=== PATIENT | male | born 1940 | race Caucasian/White ===

== ENCOUNTER 2022-09-19 23:37 | Inpatient (IN) | payer OTHER, SELFPAY ==
--- NOTE | ~2022-09-19 | XR_ITS ---
EXAMINATION: XR chest 1V portable INDICATION: Weakness TECHNIQUE: Portable AP chest at 0048 hours COMPARISON: None available FINDINGS: The lungs are free of acute opacities. No pleural effusion or pneumothorax. The cardiomedia stinal silhouette is normal. IMPRESSION: 1. No acute cardiopulmonary abnormality. Reviewed, dictated and finalized at location F.
--- NOTE | ~2022-09-19 | NM_ITS ---
EXAMINATION: NM hepatobiliary w pharm DATE: 09/23/2022 15:45 INDICATION: Abnormal gallbladder on ultrasound COMPARISON: None. TECHNIQUE: 3.5 mCi Tc-99m mebrofenin (Choletec) was administered intravenously. Scintigraphic images of the abdomen were obtained for one hour. 1.2 mcg sincalide (Kinevac) was administered by slow intr avenous infusion, and imaging was continued for 30 minutes. Gallbladder ejection fraction was calcula jitendra by the technologist. FINDINGS: There is normal clearance of radiotracer from the blood pool. There is homogeneous tracer uptake by t he liver. Activity progresses to the gallbladder and bowel. The gallbladder ejection fraction (GBEF) is 95% (normal 10-90%, but most patient with gallbladder dysfunction have GBEF < 35% which does over lap with the normal range). IMPRESSION: 1. Biliary hyperkinesis with >90% gallbladder ejection fraction. Reviewed, dictated and finalized at location B.
--- NOTE | ~2022-09-19 | US_ITS ---
EXAMINATION: US carotid duplex BI DATE: 09/27/2022 14:26 INDICATION: Stroke. TECHNIQUE: Grayscale, color Doppler, and pulsed Doppler images of the cervical carotid arteries were obtained. The degree of vessel stenosis is placed in one of the following categories: normal, <50%, 5 0-69%, >=70% but less than near-occlusion, near-occlusion, or total occlusion. Note that percent sten osis relative to normal distal artery lumen diameter is indirectly measured from velocity measurement s as described by Cedric, et al. Radiology 2003; 229:340-346. Notes: Normal: Peak systolic velocity <125 centimeters/sec and no plaque <50%. Peak systolic velocity <125 ( EDV <40; ICA/CCA PSV ratio <2.0; used these factors only a tandem lesions or low cardiac output or co ntralateral disease) 50-69 %: PSV 125-230 (EDV 40-100; ratio 2-4) >= 70% but less than near occlusion: PSV greater than 230 (EDV > 100; ratio> 4.0) Near Occlusion: PSV that is variable; markedly narrowed lumen Occlusion: Absent flow on color/spectral Doppler and no lumen on stoner scale. COMPARISON: None. FINDINGS: RIGHT: The right common carotid artery (CCA) peak systolic velocity (PSV) is 66 cm/s. The right internal car otid artery (ICA) PSV is 104 cm/s. The right ICA end-diastolic velocity (EDV) is 27 cm/s. The right I CA/CCA PSV ratio is 1.6. The external carotid artery (ECA) PSV is 115 cm/s. There is antegrade flow i n the right vertebral artery. LEFT: The left CCA PSV is 54 cm/s. The left ICA PSV is 118 cm/s. The left ICA EDV is 23 cm/s. The left ICA/ CCA PSV ratio is 2.2. The ECA PSV is 282 cm/s. There is antegrade flow in the left vertebral artery. IMPRESSION: 1. Less than 50% stenosis in the right internal carotid artery by sonographic criteria. 2. Less than 50% stenosis in the left internal carotid artery by sonographic criteria. Reviewed, dictated and finalized at location A. IMPRESSION: 1. Less than 50% stenosis in the right internal carotid artery by sonographic gloria carrington. 2. Less than 50% stenosis in the left internal carotid artery by sonographic estephania olivier.
--- NOTE | ~2022-09-19 | US_ITS ---
US abdomen limited INDICATION: Right upper quadrant pain PROCEDURE: Realtime right upper abdominal ultrasound. COMPARISON: CT dated 09/20/2022 FINDINGS: The pancreas is normal without focal mass or pancreatic ductal dilation. Liver echotexture is normal without focal mass or intrahepatic biliary dilatation. There is normal directional flow i n the portal vein. Gallbladder wall appears mildly thickened with multiple echogenic foci along the gallbladder margin. No significant calcification the gallbladder is identified on prior CT examination. No gallstones are seen. No significant sludge. There is some comet tail artifact in a few of the echogenic areas sugge sting adenomyomatosis. Common bile duct measures 3.5 mm. No sonographic Benitez's sign. There are ri ght renal cysts, largest measuring 6 cm. IMPRESSION: 1: Mild gallbladder wall thickening with multiple echogenic foci along the gallbladder margin, possib ly adenomyomatosis. No definite gallstones are seen. Gallbladder wall thickening could indicate inter stitial edema, chronic liver disease or chronic cholecystitis. Reviewed, dictated and finalized at location B. IMPRESSION: 1: Mild gallbladder wall thickening with multiple echogenic foci along the gall bladder margin, possibly adenomyomatosis. No definite gallstones are seen. Gall bladder wall thickening could indicate interstitial edema, chronic liver diseas e or chronic cholecystitis.
--- NOTE | ~2022-09-19 | CT_ITS ---
EXAMINATION: CTA chest PE abdomen pel DATE: 09/20/2022 07:40 CDT INDICATION: Weakness and dizziness. TECHNIQUE: Computed tomography (CT) of the chest, abdomen, and pelvis was performed with 100 cc Omnip aque 350 intravenous contrast. The dose-length product was 394.89 mGy-cm. Automated exposure control and iterative reconstruction technique were employed. COMPARISON: CT dated 09/15/2014 FINDINGS: CHEST CT: Study is technically adequate without evidence for pulmonary embolism. No thoracic lymphadenopathy. T here is atherosclerosis of the aorta and coronary arteries. Small pericardial effusion. No endobronch ial lesions. No pneumothorax. There is right lower lobe atelectasis/scarring. There is demineralizati on of the bowel. Mild thoracic spondylosis. Moderate-severe lumbar spondylosis. ABDOMEN/PELVIS CT: There is pneumobilia and intraluminal gas in the gallbladder which be could be due to instrumentation . Correlate for symptoms of cholangitis/acute cholecystitis. There is thickening of the gastric antru m and pylorus. Cannot exclude underlying mass or peptic ulcer disease. Nonobstructive bowel gas patte rn. There is a nonenhancing 12 mm lesion in the right hepatic lobe, most likely benign. There are calcifi ed granulomas of the spleen. There are calcifications of the pancreas suggesting chronic pancreatitis . There are multiple bilateral renal cysts. There are nonobstructing bilateral renal stones. There is an aneurysm involving the distal abdominal aorta and left common iliac artery measuring 2.6 cm. Ther e is mild diffuse subcutaneous edema. No free air. IMPRESSION: 1. No evidence for pulmonary embolism. 2: Right lower lobe atelectasis/scarring. 3: Pneumobilia and intraluminal gas in the gallbladder which be could be due to instrumentation. Allison elate for symptoms of cholangitis/acute cholecystitis. 4: Abnormal thickening of the gastric antrum and pylorus. Cannot exclude underlying peptic ulcer dise ase or mass. Recommend GI consultation. 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 Reviewed, dictated and finalized at location B. IMPRESSION: 1. No evidence for pulmonary embolism. 2: Right lower lobe atelectasis/scarring. 3: Pneumobilia and intraluminal gas in the gallbladder which be could be due to instrumentation. Correlate for symptoms of cholangitis/acute cholecystitis. 4: Abnormal thickening of the gastric antrum and pylorus. Cannot exclude underl adan peptic ulcer disease or mass. Recommend GI consultation. 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
--- NOTE | ~2022-09-19 | XR_ITS ---
XR elbow RT min 3V DATE: 09/25/2022 15:08 INDICATION: New onset of right elbow pain, swelling. No injury. TECHNIQUE: 4 views COMPARISON: None FINDINGS: There is joint space narrowing and spurring consistent with prominent osteoarthritis of the elbow joint. There is some joint calcification. No fracture or dislocation or joint effusion, periosteal reaction or bone destruction is evident. IMPRESSION: Prominent osteoarthritis Reviewed, dictated and finalized at location A. IMPRESSION: Prominent osteoarthritis
--- NOTE | ~2022-09-19 | US_ITS ---
EXAMINATION:US venous doppler LE RT INDICATION:Elevated d-dimer. Right leg swelling. TECHNIQUE: Multiple grayscale, color flow and Doppler images of the right lower extremity deep venous systems were obtained and reviewed. COMPARISON:No prior studies for comparison. FINDINGS: The common femoral, superficial femoral and popliteal veins demonstrate normal respiratory variation, augmentation and compressibility. Color flow is also seen within the posterior tibial, pe roneal, greater saphenous and profunda veins. IMPRESSION: 1: No lower extremity deep venous thrombosis. Reviewed, dictated and finalized at location B.
--- NOTE | ~2022-09-19 | MR_ITS ---
EXAMINATION: MR brain/brain stem wo con DATE: 09/26/2022 13:42 INDICATION: Slurred speech. TECHNIQUE: Magnetic resonance imaging (MRI) of the brain and brainstem was performed without intraven ous contrast. COMPARISON: Brain MRI 06/09/2013 FINDINGS: There is an acute infarct in left caudate nucleus. There are old lacunar infarcts in the bi lateral basal ganglia. There is an old infarct in the posterior limb right internal capsule. There is no intracranial hemorrhage or abnormal mass lesion. There is old infarct in right cerebellum. There is an old infarct in left occipital lobe. There are scattered areas of nonspecific increased T2-weigh jitendra signal intensity in the cerebral white matter. There is a small old infarct in posterior left fro ntal lobe. The ventricles are normal in size. There are likely changes of ocular lens replacement dariela geries. The paranasal sinuses are clear. The mastoid air cells are normal. IMPRESSION: 1. Acute infarct in left caudate nucleus. 2. Old infarcts involving the bilateral basal ganglia, posterior limb right internal capsule, right c erebellum, left occipital lobe, and posterior left frontal lobe. 3. Moderate nonspecific cerebral white matter disease, which likely represents chronic small vessel i schemic disease. Reviewed, dictated and finalized at location A. IMPRESSION: 1. Acute infarct in left caudate nucleus. 2. Old infarcts involving the bilateral basal ganglia, posterior limb right int ernal capsule, right cerebellum, left occipital lobe, and posterior left fronta l lobe. 3. Moderate nonspecific cerebral white matter disease, which likely represents chronic small vessel ischemic disease.
[2022-09-20] VITALS (34 sets, daily range): BP systolic 114–153; BP diastolic 53–86; PULSE 55–85; RESP 10–23; TEMP 36.2–36.6; O2SAT 94–100; BMI 20.3
--- NOTE | 2022-09-20 00:33 | ECG_ITS ---
Measurements Intervals [place] Rate: 60 P: 74 NH: 135 QRS: 41 QRSD: 74 T: 73 QT: 366 QTc: 368 Interpretive Statements SINUS RHYTHM WITH OCCASIONAL SUPRAVENTRICULAR PREMATURE COMPLEXES NONSPECIFIC ST ABNORMALITY BORDERLINE ECG NO PREVIOUS ECG AVAILABLE FOR COMPARISON Electronically Signed On 09-20-2022 16:39:30 CDT by Jared Rodriguez M.D.
[2022-09-20] MEDS: ONDANSETRON INJ 4 MG/2 ML VIAL IV PUSH (00:41)
[2022-09-20] MEDS: SODIUM CHLORIDE 0.9% IV 1,000 ML 999 ML IV CONT ×2 (00:42→08:07)
[2022-09-20 00:53] LABS: Basophils Percent Auto 0.1 % (0.2-1.2); Hematocrit 25.3 % (42.0-52.0); Immature Granulocyte Absolute 0.05 K/mm3 (0.00-0.031); Immature Granulocyte Percent A 0.6 % (0-0.5); Lymphocytes Absolute Auto 0.34 K/mm3 (0.9-3.2); Lymphocytes Percent Auto 3.8 % (18.3-44.2); Mean Corpuscular HGB Conc 31.6 g/dl (32-36); Mean Corpuscular Hemoglobin 31.1 pg (26-34); Mean Corpuscular Volume 98.4 fl (80-100); Mean Platelet Volume 9.5 fl (7.4-10.4); Monocytes Absolute Auto 0.5 K/mm3 (0.1-0.6); Neutrophils Percent Auto 89.5 % (45.5-73.1); Platelet Count Result 147 k/mm3 (150-375); Red Blood Count 2.57 M/mm3 (4.6-6.20); Red Cell Distribution Width 14.2 % (11.5-14.5); White Blood Count 8.9 K/mm3 (4.5-10.0)
[2022-09-20 01:03] LABS: INR 1.2; Partial Thromboplastin Time 24.5 SECONDS (22.3-36.8); Prothrombin Time 14.3 Seconds (11.1-14.7)
[2022-09-20 01:08] LABS: Albumin Level 2.8 g/dL (3.5-5.1); Lipase 568 U/L (23-300); Magnesium 2.4 mg/dL (1.6-2.3); Sodium 138 mmol/L (137-145)
[2022-09-20 01:16] LABS: D Dimer 1.45 ug/mL (<0.48)
[2022-09-20 01:17] LABS: NT Pro B Type Natriuretic Pept 669 pg/mL (5-100)
[2022-09-20 01:23] LABS: Troponin I 0.039 ng/mL (0.000-0.034)
[2022-09-20 01:36] LABS: Lactic Acid Reflex 3.1 mmol/L (0.7-2.0)
[2022-09-20 02:36] LABS: Add Urine Microscopic? YES; Appearance Urine Clear (Clear); Bilirubin Urine Negative (Negative); Blood Urine Negative (Negative); Color Urine Yellow (Yellow); Glucose Urine UA Negative (Negative); Ketones Urine Negative (Negative); Leukocyte Esterase Ur Negative LEU/UL (Negative); Nitrate Urine Negative (Negative); Protein Urine Negative (Negative); RBC Urine 0-2 /hpf (0-2); Specific Grav Ur 1.027 (1.001-1.035); Urobilinogen Urine Negative mg/dL (<2.0); WBC Urine 0-3 /hpf
[2022-09-20 03:56] LABS: Procalcitonin 0.1 ng/mL
[2022-09-20 04:01] LABS: Alanine Aminotransferase 19 U/L (6-50); Alkaline Phosphatase 60 U/L (38-126); Anion Gap 7 mmol/L (8-16); Aspartate Amino Transferase 25 U/L (17-59); Bilirubin,Total 0.3 mg/dL (0.2-1.3); Blood Urea Nitrogen 57 mg/dL (9-20); Calcium 8.1 mg/dL (8.4-10.2); Carbon Dioxide 25 mmol/L (22-30); Chloride 106 mmol/L (98-107); Estimated CRCL calculation 35 ml/min; Estimated Glomerular Filt Rate 53; Glucose 156 mg/dL (65-110); Potassium 4.5 mmol/L (3.4-5.0)
[2022-09-20 04:21] LABS: Reflex Lactic Acid Yes or No Add Lactic
--- NOTE | 2022-09-20 04:23 | ED.GENADULT ---
HPI - General Adult General Chief complaint: Weakness Stated complaint: weakness Time Seen by Provider: 09/20/22 00:19 Related Data Allergies Allergy/AdvReac Type Severity Reaction Status Date / Time No Known Allergies Allergy Verified 09/20/22 00:36 [facility] Family History Family History (Updated 07/21/14 @ 07:13 by DOCTOR UNKNOWN) Sibling Family history of malignant neoplasm Mother Patient's mother is Social History Social History Smoking status: Current every day smoker Alcohol intake: current Course Vital Signs Vital signs: Vital Signs Pulse Rate 85 09/20/22 00:30 Respiratory Rate 16 09/20/22 00:30 Blood Pressure 153/75 H 09/20/22 00:30 Pulse Oximetry 100 09/20/22 00:30 Oxygen Delivery Room Air 09/20/22 00:30 Pulse Rate 85 09/20/22 00:30 Respiratory Rate 16 09/20/22 00:30 Blood Pressure 153/75 H 09/20/22 00:30 Pulse Oximetry 100 09/20/22 00:30 Oxygen Delivery Room Air 09/20/22 00:30 Medical Decision Making Vital Signs Vital Signs: Vital Signs Pulse Rate 85 09/20/22 00:30 Respiratory Rate 16 09/20/22 00:30 Blood Pressure 153/75 H 09/20/22 00:30 Pulse Oximetry 100 09/20/22 00:30 Oxygen Delivery Room Air 09/20/22 00:30 Pulse Rate 85 09/20/22 00:30 Respiratory Rate 16 09/20/22 00:30 Blood Pressure 153/75 H 09/20/22 00:30 Pulse Oximetry 100 09/20/22 00:30 Oxygen Delivery Room Air 09/20/22 00:30 Lab Data Result diagrams: 09/20/22 00:47 09/20/22 00:47 Labs: Lab Results 09/20/22 09/20/22 09/20/22 Range/Units 00:47 00:47 00:47 WBC (4.5-10.0) K/mm3 RBC (4.6-6.20) M/mm3 Hgb (14.0-18.0) g/dL Hct (42.0-52.0) % MCV (80-100) fl MCH (26-34) pg MCHC (32-36) g/dl RDW (11.5-14.5) % Plt Count (150-375) k/mm3 MPV (7.4-10.4) fl Immature Gran % (Auto) (0-0.5) % Neut % (Auto) (45.5-73.1) % Lymph % (Auto) (18.3-44.2) % [place] % (Auto) (2.6-8.5) % Eos % (Auto) (0-4.4) % Baso % (Auto) (0.2-1.2) % Lymph # (Auto) (0.9-3.2) K/mm3 [place] # (Auto) (0.1-0.6) K/mm3 Eos # (Auto) (0-0.3) K/mm3 Baso # (Auto) (0.0-0.1) K/mm3 Abs Immat Gran (auto) (0.00-0.031) K/mm3 Absolute Neuts (auto) (1.3-6.7) K/mm3 Absolute Nucleated RBC (0.0-0.012) K/mm3 Nucleated RBC % (0.0-0.2) % PT 14.3 (11.1-14.7) Seconds INR 1.2 APTT 24.5 (22.3-36.8) SECONDS D-Dimer 1.45 H (<0.48) ug/mL Sodium 138 (137-145) mmol/L Potassium 4.5 (3.4-5.0) mmol/L Chloride 106 (98-107) mmol/L Carbon Dioxide 25 (22-30) mmol/L Anion Gap 7 L (8-16) mmol/L BUN 57 H (9-20) mg/dL Creatinine 1.30 (0.7-1.3) mg/dL Estim Creat Clear Calc 35 ml/min Estimated GFR 53 L (59 - ) Glucose 156 H (65-110) mg/dL Lactic Acid (0.7-2.0) mmol/L Calcium 8.1 L (8.4-10.2) mg/dL Magnesium 2.4 H (1.6-2.3) mg/dL Total Bilirubin 0.3 (0.2-1.3) mg/dL AST 25 (17-59) U/L ALT 19 (6-50) U/L Alkaline Phosphatase 60 (38-126) U/L Troponin I 0.039 H* (0.000-0.034) ng/mL NT-Pro-B Natriuret Pep (5-100) pg/mL Total Protein 5.0 L (6.3-8.2) g/dL Albumin 2.8 L (3.5-5.1) g/dL Lipase 568 H (23-300) U/L Procalcitonin 0.1 ng/mL Urine Color (Yellow) Urine Appearance (Clear) Urine pH (5.0-9.0) Ur Specific [place] (1.001-1.035) Urine Protein (Negative) mg/dL Urine Glucose (UA) (Negative) mg/dL Urine Ketones (Negative) mg/dL Ur Blood (Man) (Negative) Urine Nitrate (Negative) Urine Bilirubin (Negative) Urine Urobilinogen (<2.0) mg/dL Leukocyte Esterase Rfl (Negative) ANGELICA/UL Urine RBC (0-2) /hpf Urine WBC /hpf 09/20/22 09/20/22 09/20/22 Range/Units 00:47 00:47 00:47 WBC 8.9 (4.5-10.0) K/mm3 RBC 2.57 L (4.6-6.20) M/mm3 Hgb 8.0 L (14
[2022-09-20 04:42] LABS: Troponin I 0.035 ng/mL (0.000-0.034)
[2022-09-20 05:05] LABS: Lactic Acid 1.5 mmol/L (0.7-2.0)
[2022-09-20 05:29] LABS: Influenza A QL RT-PCR Negative (Negative); Influenza B QL RT-PCR Negative (Negative); SARS-CoV-2 RNA PCR Negative
[2022-09-20] MEDS: SODIUM CHLORIDE 0.9% IV 1,000 ML 150 ML IV CONT ×2 (06:25→16:59)
--- NOTE | 2022-09-20 06:29 | PC.NURSE ---
attempted to call report nurse is not available
--- NOTE | 2022-09-20 07:58 | PM.IMHP ---
H&P: HPI History of Present Illness Date/Time: 09/20/22 07:58 Chief Complaint: weakness Narrative: 82 y/o M with PMH Crohn's colitis, bloody diarrhea/GI bleed, coming from home, lives with spouse, p/w generalized weakness for the last 2 days. He states he was in his usual state of health prior to this. He denies any chest pain, shortness a breath, nausea or emesis. He denies any sick contacts or recent travel. He denies fevers or chills. He states his appetite seems about the same. It does not feel like a Crohn's flare to him. Patient states he was in the hospital at [facility] about 2 weeks ago and discharged on prednisone 40 mg daily and given a month supply with refills, due to possible Crohn's flare suspected? Records from that stay are pending. PCP is Dr Mccartney, records pending from their office as well. In the ER, labs were unremarkable except for a hgb of 8 (unknown baseline), LA 3.1 (resolved with fluids, down to 1.5 now), elevated troponin of 0.035 (ECG non acute). Imaging showed a non acute CXR, LE dopplers negative for DVT, CTA chest/abd/pelvis with no PE, some RLL atelectasis vs scarring, GB abnormality (RUQ US ordered and showed GB wall thickening concerning for liver disease vs chronic cholecystitis, HIDA pending), thickening of gastric antrum and pylorus concerning for GERD vs mass and iliac artery aneurysms. Update: Records reviewed from PCP, [facility] includes CVA, HTN, HLD, Crohn's, nicotine dependence, B/L carotid stenosis, recent hospitalization at [facility] for possible GI bleed, patient unreliable historian. Records from recent hospitalization at [facility] is still pending. Review of Systems Review of Systems: 12 point review of systems was assessed and was negative except as noted in the HPI [facility] Past Medical History Medical History Benign essential hypertension Crohn's disease History of CVA with residual deficit Hyperlipidemia Iliac artery aneurysm Iron deficiency anemia Family History Family History Sibling Family history of malignant neoplasm Mother Patient's mother is Social History Social History Smoking packs per day: 1 Smoking cigarettes per day: 20.0 Smoking status: Former smoker Smoking end date: 09/20/22 Alcohol intake: former Drinks per week: 1 Substance use: never Has the Lack of Transportation Kept You From Medical Appointments or From Getting Medications?: No Within the Past 12 Months, Were You Worried Whether Your Food Would Run Out Before You Got Money to Buy More?: Never True What is Your Housing Situation Today?: I Have Housing Are You Worried That in the Next 2 Months, You May Not Have Your Own Housing to Live In?: No Do You Have Trouble Paying Your Heating Or Electricity Bill?: No Do You Have Trouble Paying For Medicines?: No Are You Currently Unemployed and Looking for Work?: No Highest Level of Education Completed: Associate Degree Do You Have Trouble With Childcare or the Care of a Family Member?: No Spiritual care concerns: No Meds Home Medications and Allergies Home Medications Medication Instructions Recorded Confirmed Type atorvastatin 40 mg tablet 40 mg PO DAILY 09/20/22 09/20/22 History balsalazide 750 mg capsule 750 mg PO TID 09/20/22 09/20/22 History ferrous sulfate 325 mg (65 mg 325 mg PO DAILY 09/20/22 09/20/22 History iron) tablet lisinopril 40 mg tablet 40 mg PO BID 09/20/22 09/20/22 History pantoprazole 40 mg tablet,delayed 40 mg PO DAILY 09/20/22 09/20/22 History release prednisone 20 mg tablet 40 mg PO DAILY 09/20/22 09/20/22 History Allergies Allergy/AdvReac Type Severity Reaction Status Date / Time No Known Allergies Allergy Verified 09/20/22 07:58 Vital Signs Vital Signs - 24 hr 09/20/22 00:30 09/20/22 00:32 09/20
[2022-09-20] MEDS: PANTOPRAZOLE SODIUM IV 40 MG VIAL IV PUSH (22:00)
[2022-09-21] VITALS (12 sets, daily range): BP systolic 120–180; BP diastolic 50–79; PULSE 60–76; RESP 14–20; TEMP 35.7–36.7; O2SAT 99–100
[2022-09-21] MEDS: SODIUM CHLORIDE 0.9% IV 1,000 ML 75 ML IV CONT ×3 (00:11→21:15)
[2022-09-21] MEDS: lisinopriL 20 MG TABLET 40 MG PO ×3 (00:46→21:16)
[2022-09-21 06:42] LABS: Basophils Percent Auto 0.2 % (0.2-1.2); Eosinophils Absolute Auto 0.1 K/mm3 (0-0.3); Eosinophils Percent Auto 1.9 % (0-4.4); Immature Granulocyte Absolute 0.04 K/mm3 (0.00-0.031); Immature Granulocyte Percent A 0.7 % (0-0.5); Lymphocytes Absolute Auto 1.06 K/mm3 (0.9-3.2); Lymphocytes Percent Auto 18.6 % (18.3-44.2); Mean Corpuscular HGB Conc 31.5 g/dl (32-36); Mean Corpuscular Hemoglobin 30.9 pg (26-34); Mean Platelet Volume 10.7 fl (7.4-10.4); Monocytes Absolute Auto 0.4 K/mm3 (0.1-0.6); Monocytes Percent Auto 7.7 % (2.6-8.5); Neutrophils Absolute Auto 4.1 K/mm3 (1.3-6.7); Neutrophils Percent Auto 70.9 % (45.5-73.1); Platelet Count Result 117 k/mm3 (150-375); Red Blood Count 2.04 M/mm3 (4.6-6.20); Red Cell Distribution Width 14.2 % (11.5-14.5); White Blood Count 5.7 K/mm3 (4.5-10.0)
[2022-09-21 07:01] LABS: Hemoglobin 6.3 g/dL (14.0-18.0)
[2022-09-21 07:02] LABS: Alanine Aminotransferase 13 U/L (6-50); Alkaline Phosphatase 39 U/L (38-126); Anion Gap -1 mmol/L (8-16); Aspartate Amino Transferase 19 U/L (17-59); Bilirubin,Total 0.3 mg/dL (0.2-1.3); Blood Urea Nitrogen 36 mg/dL (9-20); Calcium 7.5 mg/dL (8.4-10.2); Carbon Dioxide 24 mmol/L (22-30); Chloride 113 mmol/L (98-107); Estimated CRCL calculation 45 ml/min; Estimated Glomerular Filt Rate > 60; Glucose 68 mg/dL (65-110); Potassium 4.1 mmol/L (3.4-5.0); Sodium 136 mmol/L (137-145)
--- NOTE | 2022-09-21 07:37 | PM.IMPN ---
Progress Note: A&P Assessment and Plan (1) Crohn's disease: Code(s): K50.90 - Crohn's disease, unspecified, without complications Status: Chronic Assessment and Plan: GI consult pending, cont home meds (2) Benign essential hypertension: Code(s): I10 - Essential (primary) hypertension Status: Chronic Assessment and Plan: continue home meds (3) History of CVA with residual deficit: Code(s): I69.30 - Unspecified sequelae of cerebral infarction Status: Chronic Assessment and Plan: stable, cont statin, unsure why patient is not on aspirin and/or plavix? will need to get old records from PCP and [facility] 09/21: Records from PCP acquired, patient did have an old stroke as well as bilateral carotid stenosis and nicotine dependence, suspect aspirin and Plavix were started after the stroke? Records still pending from [facility] from his recent hospitalization for suspected GI bleed (4) Lactic acidosis: Code(s): E87.20 - Acidosis, unspecified Status: Resolved Assessment and Plan: resolved with IVF (5) Elevated troponin: Code(s): R77.8 - Other specified abnormalities of plasma proteins Status: Resolved Assessment and Plan: trend troponin, monitor telemetry, repeat ECG tomorrow (6) Iliac artery aneurysm: Code(s): I72.3 - Aneurysm of iliac artery Status: Chronic (7) Thickening of wall of gallbladder: Code(s): K82.8 - Other specified diseases of gallbladder Status: Suspected Assessment and Plan: HIDA scan pending, may need surgical consult (8) Hyperlipidemia: Code(s): E78.5 - Hyperlipidemia, unspecified Status: Chronic Assessment and Plan: cont statin (9) Iron deficiency anemia: Code(s): D50.9 - Iron deficiency anemia, unspecified Status: Chronic Assessment and Plan: hgb 8 at admission, appears HDS, unknown baseline, check FOBT, cont iron, GI consult pending (10) Gastric wall thickening: Code(s): K31.89 - Other diseases of stomach and duodenum Status: Acute Assessment and Plan: GI consult pending, suspect GI bleed, npo, PPI hgb dropped to below 7 today, recheck after transfusion pending could be underlying GERD? Plan DVT prophylaxis with SCDs GI prophylaxis with PPI Code status full code Subjective Date/time seen: 09/21/22 07:37 Interval history: No overnight events noted. No chest pain or shortness of breath. No nausea, vomiting or diarrhea. No fevers or chills. Patient very irritable and unhappy today. Review of Systems Review of Systems: 12 point review of systems was assessed and was negative except as noted in the HPI Exam Narrative: General: No acute distress, alert and oriented per baseline HEENT: Atraumatic, normocephalic, mucous membranes moist CV: Regular rate and rhythm, S1, S2 Lungs: Clear to auscultation bilaterally, no rales or crackles noted, no wheezes, good air entry Abdomen: Soft, nontender, nondistended Extremities: Normal to inspection Skin: No rashes noted, no lesions or wounds seen Psych: Dysthymic, flattened defect Objective Data Vital Signs Vital Signs: Vital Signs - 24 hr 09/20/22 08:00 09/20/22 14:12 09/20/22 14:00 Temperature 97.1 F L Pulse Rate 55 L Respiratory Rate 16 Blood Pressure 125/61 Pulse Oximetry 94 100 Oxygen Delivery Room Air Room Air 09/20/22 22:00 09/20/22 20:15 09/21/22 05:48 Temperature 97.8 F 97.8 F Pulse Rate 72 72 60 Respiratory Rate 16 16 16 Blood Pressure 129/53 L 120/50 L Pulse Oximetry 100 100 100 Oxygen Delivery Room Air Intake/Output Intake/Output: Intake & Output 09/18/22 09/19/22 09/20/22 09/21/22 23:59 23:59 23:59 23:59 Intake Total 3440 1000 Output Total 800 900 Balance 2640 100 Meds/Results Medications: Active Medications Generic Name Dose Route Start Last Admin Trade Name Freq PRN Reason
[2022-09-21 09:03] LABS: Hematocrit 21.3 % (42.0-52.0); Mean Corpuscular HGB Conc 31.5 g/dl (32-36); Mean Corpuscular Volume 98.6 fl (80-100); Mean Platelet Volume 10.4 fl (7.4-10.4); Platelet Count Result 128 k/mm3 (150-375); Red Blood Count 2.16 M/mm3 (4.6-6.20); Red Cell Distribution Width 14.1 % (11.5-14.5); White Blood Count 5.9 K/mm3 (4.5-10.0)
[2022-09-21] MEDS: ATORVASTATIN 40 MG TABLET PO (09:06)
[2022-09-21] MEDS: FERROUS SULFATE 324 MG TABLET PO (09:07)
[2022-09-21] MEDS: PANTOPRAZOLE SODIUM IV 40 MG VIAL IV PUSH ×2 (09:07→21:16)
[2022-09-21 09:24] LABS: Hemoglobin 6.7 g/dL (14.0-18.0)
[2022-09-21] MEDS: SODIUM CHLORIDE 0.9% IV 250 ML 30 ML IV CONT (12:00)
--- NOTE | 2022-09-21 15:59 | PHAR ---
The patient's home med of Balsalazide 750 mg capsule has been verified.
[2022-09-21 21:12] LABS: Hematocrit 33.1 % (42.0-52.0); Hemoglobin 10.8 g/dL (14.0-18.0)
[2022-09-22 06:00] VITALS: BP 166/81; PULSE 62; RESP 16; TEMP 36.9; O2SAT 98
[2022-09-22 06:08] LABS: Basophils Percent Auto 0.2 % (0.2-1.2); Eosinophils Absolute Auto 0.1 K/mm3 (0-0.3); Eosinophils Percent Auto 2.5 % (0-4.4); Hematocrit 30.1 % (42.0-52.0); Hemoglobin 9.9 g/dL (14.0-18.0); Immature Granulocyte Absolute 0.05 K/mm3 (0.00-0.031); Lymphocytes Absolute Auto 0.69 K/mm3 (0.9-3.2); Lymphocytes Percent Auto 14.3 % (18.3-44.2); Mean Corpuscular HGB Conc 32.9 g/dl (32-36); Mean Corpuscular Hemoglobin 30.2 pg (26-34); Mean Corpuscular Volume 91.8 fl (80-100); Mean Platelet Volume 9.7 fl (7.4-10.4); Monocytes Absolute Auto 0.3 K/mm3 (0.1-0.6); Monocytes Percent Auto 6.4 % (2.6-8.5); Neutrophils Absolute Auto 3.6 K/mm3 (1.3-6.7); Neutrophils Percent Auto 75.6 % (45.5-73.1); Platelet Count Result 113 k/mm3 (150-375); Red Blood Count 3.28 M/mm3 (4.6-6.20); Red Cell Distribution Width 15.4 % (11.5-14.5); White Blood Count 4.8 K/mm3 (4.5-10.0)
[2022-09-22 06:47] LABS: Alanine Aminotransferase 14 U/L (6-50); Albumin Level 2.2 g/dL (3.5-5.1); Alkaline Phosphatase 52 U/L (38-126); Anion Gap 6 mmol/L (8-16); Aspartate Amino Transferase 21 U/L (17-59); Bilirubin,Total 0.3 mg/dL (0.2-1.3); Blood Urea Nitrogen 24 mg/dL (9-20); Calcium 7.3 mg/dL (8.4-10.2); Carbon Dioxide 25 mmol/L (22-30); Chloride 107 mmol/L (98-107); Estimated CRCL calculation 41 ml/min; Estimated Glomerular Filt Rate > 60; Glucose 83 mg/dL (65-110); Potassium 3.7 mmol/L (3.4-5.0); Sodium 138 mmol/L (137-145)
[2022-09-22] MEDS: PANTOPRAZOLE SODIUM IV 40 MG VIAL IV PUSH ×2 (09:21→20:46)
[2022-09-22] MEDS: FERROUS SULFATE 324 MG TABLET PO (09:21)
[2022-09-22] MEDS: lisinopriL 20 MG TABLET 40 MG PO ×2 (09:21→20:46)
[2022-09-22] MEDS: ATORVASTATIN 40 MG TABLET PO (09:21)
--- NOTE | 2022-09-22 09:57 | WPDGICN ---
Assessment and Plan Assessment and plan (1) Gastric wall thickening: Code(s): K31.89 - Other diseases of stomach and duodenum Status: Acute Assessment and Plan: will proceed with egd tomorrow- assess if ulcer, pud, mass, etc (2) Acute on chronic anemia: Code(s): D64.9 - Anemia, unspecified Status: Acute Assessment and Plan: patient required blood transfusion apparently 3 weeks ago he went to another hospital for GIB but he is poor historian (3) Thickening of wall of gallbladder: Code(s): K82.8 - Other specified diseases of gallbladder Status: Suspected (4) Lactic acidosis: Code(s): E87.20 - Acidosis, unspecified Status: Resolved Assessment and Plan: resolved, probably from worsening anemia (5) Crohn's disease: Code(s): K50.90 - Crohn's disease, unspecified, without complications Status: Chronic Assessment and Plan: colonoscopy will get crp and esr no diarrhea now (6) Benign essential hypertension: Code(s): I10 - Essential (primary) hypertension Status: Chronic GI Consult Note Consult date/time: 09/22/22 09:57 Reason for consult: acute on chronic anemia, ? Crohn's HPI: Tal Heck is a 82 year old male with histoyr of Crohn's colitis diagnosed lat on balsalazide (never been on biologics), HTN and anemia. He says that was in [facility] about 3 weeks ago when he presented with bloody stools and apparently discharged with steroids (he is not best historian), he thinks that had egd and colonoscopy earlier this year. Here with generalized weakness for the last few days, denies more blood in stools, no abdominal pain, nausea or fever and he does not feel like having Crohn's flare. ER evaluation found hgb of 8 down to 6.3 and received blood transfusion, lactic 3.1 (resolved with fluids, down to 1.5 now), CTA chest/abd/pelvis reviewed with no PE, some RLL atelectasis vs scarring, GB abnormality (RUQ US ordered and showed GB wall thickening concerning for liver disease vs chronic cholecystitis), thickening of gastric antrum and pylorus. Review of Systems Constitutional: Constitutional: Reports fatigue and Reports weakness Eyes: Eyes: Reports no additional eye complaints ENT: Reports Normal hearing present Cardiovascular: Cardiovascular: Denies chest pain Respiratory: Respiratory: Denies chest congestion Gastrointestinal: Gastrointestinal: Reports no additional gastrointestinal complaints Genitourinary: Genitourinary: Denies hematuria Musculoskeletal: Musculoskeletal: Denies back pain Integumentary/Breasts: Skin/Breast: Denies rash Neurologic: Denies Abnormal speech present Psychiatric: Psychiatric: Denies behavioral changes [facility] Past Medical History Medical History (Updated 09/22/22 @ 10:03 by Scott Rios MD) Acute on chronic anemia Benign essential hypertension Crohn's disease History of CVA with residual deficit Hyperlipidemia Iliac artery aneurysm Iron deficiency anemia Family History Family History Sibling Family history of malignant neoplasm Mother Patient's mother is Social History Social History Smoking packs per day: 1 Smoking cigarettes per day: 20.0 Smoking status: Former smoker Smoking end date: 09/20/22 Alcohol intake: former Drinks per week: 1 Substance use: never Has the Lack of Transportation Kept You From Medical Appointments or From Getting Medications?: No Within the Past 12 Months, Were You Worried Whether Your Food Would Run Out Before You Got Money to Buy More?: Never True What is Your Housing Situation Today?: I Have Housing Are You Worried That in the Next 2 Months, You May Not Have Your Own Housing to Live In?: No Do You Have Trouble Paying Your Heating Or Electricity Bill?: No Do You Have T
--- NOTE | 2022-09-22 11:39 | PM.IMPN ---
Progress Note: A&P Assessment and Plan (1) Crohn's disease: Code(s): K50.90 - Crohn's disease, unspecified, without complications Status: Chronic Assessment and Plan: appreciate GI consultation, plan is for EGD tomorrow (2) Benign essential hypertension: Code(s): I10 - Essential (primary) hypertension Status: Chronic Assessment and Plan: continue home meds (3) History of CVA with residual deficit: Code(s): I69.30 - Unspecified sequelae of cerebral infarction Status: Chronic Assessment and Plan: stable, cont statin, unsure why patient is not on aspirin and/or plavix? 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.3 - Aneurysm of iliac artery Status: Chronic (7) Thickening of wall of gallbladder: Code(s): K82.8 - Other specified diseases of gallbladder Status: Suspected Assessment and Plan: HIDA scan pending, may need surgical consult (8) Hyperlipidemia: Code(s): E78.5 - Hyperlipidemia, unspecified Status: Chronic Assessment and Plan: cont statin (9) Iron deficiency anemia: Code(s): D50.9 - Iron deficiency anemia, unspecified Status: Chronic Assessment and Plan: hgb 8 at admission, appears HDS, unknown baseline, check FOBT, cont iron, GI consult pending hemoglobin stable between 9 and 10 after transfusion yesterday (10) Gastric wall thickening: Code(s): K31.89 - Other diseases of stomach and duodenum Status: Acute Assessment and Plan: GI consult appreciated, EGD tomorrow could be underlying GERD Plan DVT prophylaxis with SCDs GI prophylaxis with PPI Code status full code Subjective Date/time seen: 09/22/22 11:39 Interval history: No overnight events noted. No chest pain or shortness of breath. No nausea, vomiting or diarrhea. No fevers or chills. Review of Systems Review of Systems: 12 point review of systems was assessed and was negative except as noted in the HPI Exam Narrative: General: No acute distress, alert and oriented per baseline HEENT: Atraumatic, normocephalic, mucous membranes moist CV: Regular rate and rhythm, S1, S2 Lungs: Clear to auscultation bilaterally, no rales or crackles noted, no wheezes, good air entry Abdomen: Soft, nontender, nondistended Extremities: Normal to inspection Skin: No rashes noted, no lesions or wounds seen Psych: Dysthymic, flattened defect Objective Data Vital Signs Vital Signs: Vital Signs - 24 hr 09/21/22 12:00 09/21/22 12:15 09/21/22 13:15 Temperature 97.0 F L 97.5 F L 96.2 F L Pulse Rate 63 64 63 Respiratory Rate 18 16 20 Blood Pressure 132/56 L 133/54 L 148/63 H Pulse Oximetry 100 100 100 Oxygen Delivery 09/21/22 14:15 09/21/22 13:15 09/21/22 14:15 Temperature 97.2 F L 97.2 F L 97.3 F L Pulse Rate 63 63 66 Respiratory Rate 14 14 14 Blood Pressure 159/64 H 159/64 H 158/62 H Pulse Oximetry 100 100 100 Oxygen Delivery 09/21/22 15:15 09/21/22 16:04 09/21/22 16:20 Temperature 97.4 F L 97.3 F L 97.4 F L Pulse Rate 64 61 65 Respiratory Rate 16 14 16 Blood Pressure 151/62 H 151/62 H 135/58 L Pulse Oximetry 100 100 100 Oxygen Delivery 09/21/22 17:20 09/21/22 18:20 09/21/22 22:00 Temperature 97.3 F L 97.3 F L 98.1 F Pulse Rate 74 76 74 Respiratory Rate 16 16 16 Blood Pressure 160/78 H 164/74 H 180/79 H Pulse Oximetry 100 100 99 Oxygen Delivery 09/21/22 20:00 09/22/22 06:00 Temperature 98.4 F Pulse Rate 62 Respiratory Rate 16 Blood Pressure 166/81 H Pulse Oximetry 98 O
[2022-09-22 14:00] VITALS: BP 163/35; PULSE 71; RESP 18; TEMP 36.4; O2SAT 98
--- NOTE | 2022-09-22 20:03 | PC.NURSE ---
After pt family in, this RN informed that pt had previous colonoscopy and EGD with last six weeks and a barium enema. Informed Dr. Obrien who then decided to go forward with the EGD at this time. Pt will remain NPO at midnight, consent signed. Charted against the colonoscopy meds for this time. Request for records made to [facility] for results.
[2022-09-22] MEDS: SODIUM CHLORIDE 0.9% IV 1,000 ML 75 ML IV CONT (20:53)
[2022-09-22 22:00] VITALS: BP 178/76; PULSE 100; RESP 16; TEMP 36.5; O2SAT 100
[2022-09-23] VITALS (8 sets, daily range): BP systolic 140–181; BP diastolic 61–87; PULSE 62–80; RESP 14–24; TEMP 36.1–36.6; O2SAT 96–99
[2022-09-23] MEDS: hydrALAZINE HCL 25 MG TABLET PO (01:49)
[2022-09-23 06:53] LABS: Basophils Percent Auto 0.2 % (0.2-1.2); Eosinophils Absolute Auto 0.1 K/mm3 (0-0.3); Hematocrit 33.4 % (42.0-52.0); Immature Granulocyte Absolute 0.03 K/mm3 (0.00-0.031); Immature Granulocyte Percent A 0.7 % (0-0.5); Lymphocytes Percent Auto 13.1 % (18.3-44.2); Mean Corpuscular HGB Conc 32.9 g/dl (32-36); Mean Corpuscular Hemoglobin 30.6 pg (26-34); Mean Platelet Volume 9.6 fl (7.4-10.4); Monocytes Absolute Auto 0.4 K/mm3 (0.1-0.6); Monocytes Percent Auto 7.7 % (2.6-8.5); Neutrophils Absolute Auto 3.5 K/mm3 (1.3-6.7); Neutrophils Percent Auto 76.3 % (45.5-73.1); Platelet Count Result 126 k/mm3 (150-375); Red Blood Count 3.59 M/mm3 (4.6-6.20); Red Cell Distribution Width 15.2 % (11.5-14.5); White Blood Count 4.6 K/mm3 (4.5-10.0)
[2022-09-23 07:12] LABS: Alanine Aminotransferase 16 U/L (6-50); Albumin Level 2.4 g/dL (3.5-5.1); Alkaline Phosphatase 48 U/L (38-126); Anion Gap 5 mmol/L (8-16); Aspartate Amino Transferase 22 U/L (17-59); Bilirubin,Total 0.5 mg/dL (0.2-1.3); Blood Urea Nitrogen 15 mg/dL (9-20); CRP 4.7 mg/dL (<1.0); Calcium 7.6 mg/dL (8.4-10.2); Carbon Dioxide 21 mmol/L (22-30); Chloride 113 mmol/L (98-107); Estimated CRCL calculation 49 ml/min; Estimated Glomerular Filt Rate > 60; Glucose 79 mg/dL (65-110); Potassium 3.2 mmol/L (3.4-5.0); Sodium 139 mmol/L (137-145)
[2022-09-23 08:13] LABS: Erythrocyte Sedimentation Rate 34 mm/hr (0-20)
--- NOTE | 2022-09-23 09:37 | PCNFU ---
Nutrition Follow-Up Complete: Severe malnutrition in the context of chronic disease related to inadequate protein-energy intake with increased needs due to chronic disease as evidenced by less than 75% of energy needs for greater than 1 month, a -38% weight change x 12 months, and clinical signs of significant subcutaneous fat loss and muscle wasting. Goal: PO intake 75% or greater of meals and supplements - Met goal on previous diet Pt current nutrition is NPO for EGD today. Nutrition recommendation: Advance diet as medically able Last recorded weight is 62.6 kg. Bowel Motility: Labs Reviewed: Meds Noted: Skin: Additional Notes: Monitor intake, wt, labs. Follow up in 3 days. x
--- NOTE | 2022-09-23 09:41 | PCNFU ---
Nutrition Follow-Up Complete: Severe malnutrition in the context of chronic disease related to inadequate protein-energy intake with increased needs due to chronic disease as evidenced by less than 75% of energy needs for greater than 1 month, a -38% weight change x 12 months, and clinical signs of significant subcutaneous fat loss and muscle wasting. Goal: PO intake 75% or greater of meals and supplements - Goal being met on previous diet. Intakes 60-100 Pt current nutrition is NPO for EGD today. Nutrition recommendation: Advance diet as medically able Last recorded weight is 62.6 kg. Bowel Motility: None charted Labs Reviewed: Hgb 11.0, Hct 33.4, Alb 2.4, K+ 3.2 Meds Noted: Zofran Skin: WNL Additional Notes: NPO for EGD today. Continue to follow. Monitor intake, wt, labs. Follow up in 3 days. x
--- NOTE | 2022-09-23 09:54 | WPDANESEPPF ---
Anes - Initial Pre Proc Eval Procedure: Operation Date: 09/23/22 14:30 Proposed Procedures p Esophagogastroduodenoscopy EGD - Scott Rios MD Date/Time: 09/23/22 09:54 Surgeon: Jimbo Zhou MD Pre Op Diagnosis: Generalized Weakness/RLE Edema/Acute Kidney Injury Patient Data Age: 82 Gender: M Height: 1.75 m Weight: 62.6 kg Last Vital Signs Temp 36.3 C L 09/23/22 05:27 Pulse 76 09/23/22 05:27 Resp 18 09/23/22 05:27 BP 168/77 H 09/23/22 05:27 Pulse Ox 99 09/23/22 05:27 O2 Del Method Room Air 09/21/22 20:00 Allergies Allergy/AdvReac Type Severity Reaction Status Date / Time No Known Allergies Allergy Verified 09/23/22 09:54 Home Medications Medication Instructions Recorded Confirmed Type atorvastatin 40 mg tablet 40 mg PO DAILY 09/20/22 09/20/22 History balsalazide 750 mg capsule 750 mg PO TID 09/20/22 09/20/22 History ferrous sulfate 325 mg (65 mg 325 mg PO DAILY 09/20/22 09/20/22 History iron) tablet lisinopril 40 mg tablet 40 mg PO BID 09/20/22 09/20/22 History pantoprazole 40 mg tablet,delayed 40 mg PO DAILY 09/20/22 09/20/22 History release prednisone 20 mg tablet 40 mg PO DAILY 09/20/22 09/20/22 History Laboratory Tests 09/23/22 09/23/22 06:27 06:27 WBC 4.6 K/mm3 K/mm3 (4.5-10.0) RBC 3.59 M/mm3 L M/mm3 (4.6-6.20) Hgb 11.0 g/dL L g/dL (14.0-18.0) Hct 33.4 % L % (42.0-52.0) MCV 93.0 fl fl (80-100) MCH 30.6 pg pg (26-34) MCHC 32.9 g/dl g/dl (32-36) RDW 15.2 % H % (11.5-14.5) Plt Count 126 k/mm3 L k/mm3 (150-375) MPV 9.6 fl fl (7.4-10.4) Immature Gran % (Auto) 0.7 % H % (0-0.5) Neut % (Auto) 76.3 % H % (45.5-73.1) Lymph % (Auto) 13.1 % L % (18.3-44.2) [place] % (Auto) 7.7 % % (2.6-8.5) Eos % (Auto) 2.0 % % (0-4.4) Baso % (Auto) 0.2 % % (0.2-1.2) Lymph # (Auto) 0.60 K/mm3 L K/mm3 (0.9-3.2) [place] # (Auto) 0.4 K/mm3 K/mm3 (0.1-0.6) Eos # (Auto) 0.1 K/mm3 K/mm3 (0-0.3) Baso # (Auto) 0.0 K/mm3 K/mm3 (0.0-0.1) Abs Immat Gran (auto) 0.03 K/mm3 K/mm3 (0.00-0.031) Absolute Neuts (auto) 3.5 K/mm3 K/mm3 (1.3-6.7) Absolute Nucleated RBC 0.0 K/mm3 K/mm3 (0.0-0.012) Nucleated RBC % 0.0 % % (0.0-0.2) ESR 34 mm/hr H mm/hr (0-20) Sodium 139 mmol/L mmol/L (137-145) Potassium 3.2 mmol/L L mmol/L (3.4-5.0) Chloride 113 mmol/L H mmol/L (98-107) Carbon Dioxide 21 mmol/L L mmol/L (22-30) Anion Gap 5 mmol/L L mmol/L (8-16) BUN 15 mg/dL D mg/dL (9-20) Creatinine 0.90 mg/dL mg/dL (0.7-1.3) Estim Creat Clear Calc 49 ml/min ml/min Estimated GFR > 60 (59 - ) Glucose 79 mg/dL mg/dL (65-110) Calcium 7.6 mg/dL L mg/dL (8.4-10.2) Total Bilirubin 0.5 mg/dL mg/dL (0.2-1.3) AST 22 U/L U/L (17-59) ALT 16 U/L U/L (6-50) Alkaline Phosphatase 48 U/L U/L (38-126) C-Reactive Protein 4.7 mg/dL H mg/dL (<1.0) Total Protein 5.0 g/dL L g/dL (6.3-8.2) Albumin 2.4 g/dL L g/dL (3.5-5.1) Patient hx anesthesia problems: none Family hx anesthesia problems: none Results Review: All pre-operative results and documents have been reviewed as part of the pre-operative evaluation. FORMERLY [facility], [facility] Past Medical History Medical History Acute on chronic anemia Benign essential hypertension Crohn's disease History of CVA with residual deficit Hyperlipidemia Iliac artery aneurysm Iron deficiency anemia Family History Family History Sibling Family history of malignant neoplasm Mother Patient's mother is Social History Social History Smoking pac
[2022-09-23] MEDS: LACTATED RINGERS 1,000 ML 150 ML IV CONT (10:02)
--- NOTE | 2022-09-23 11:31 | PM.IMPN ---
Progress Note: A&P Assessment and Plan (1) Crohn's disease: Code(s): K50.90 - Crohn's disease, unspecified, without complications Status: Chronic Assessment and Plan: appreciate GI consultation, plan is for EGD Today (2) Benign essential hypertension: Code(s): I10 - Essential (primary) hypertension Status: Chronic Assessment and Plan: continue home meds (3) History of CVA with residual deficit: Code(s): I69.30 - Unspecified sequelae of cerebral infarction Status: Chronic Assessment and Plan: stable, cont statin, unsure why patient is not on aspirin and/or plavix? will need to get old records from PCP and [facility] (4) Lactic acidosis: Code(s): E87.20 - Acidosis, unspecified Status: Resolved Assessment and Plan: resolved with IVF (5) Elevated troponin: Code(s): R77.8 - Other specified abnormalities of plasma proteins Status: Resolved Assessment and Plan: likely from demand ischemia. No chest pain (6) Iliac artery aneurysm: Code(s): I72.3 - Aneurysm of iliac artery Status: Chronic (7) Thickening of wall of gallbladder: Code(s): K82.8 - Other specified diseases of gallbladder Status: Suspected Assessment and Plan: HIDA scan pending, may need surgical consult (8) Hyperlipidemia: Code(s): E78.5 - Hyperlipidemia, unspecified Status: Chronic Assessment and Plan: cont statin (9) Iron deficiency anemia: Code(s): D50.9 - Iron deficiency anemia, unspecified Status: Chronic Assessment and Plan: hgb 8 at admission, appears HDS, unknown baseline, check FOBT, cont iron, GI consulted hemoglobin stable between 9 and 10 after transfusion (10) Gastric wall thickening: Code(s): K31.89 - Other diseases of stomach and duodenum Status: Acute Assessment and Plan: GI consult appreciated, EGD today could be underlying GERD Plan DVT prophylaxis with SCDs GI prophylaxis with PPI Code status full code Subjective Date/time seen: 09/23/22 11:31 Interval history: No overnight events noted. No chest pain or shortness of breath. No nausea, vomiting or diarrhea. No fevers or chills. Exam Narrative: General: No acute distress, alert and oriented per baseline HEENT: Atraumatic, normocephalic, mucous membranes moist CV: Regular rate and rhythm, S1, S2 Lungs: Clear to auscultation bilaterally, no rales or crackles noted, no wheezes, good air entry Abdomen: Soft, nontender, nondistended Extremities: Normal to inspection Skin: No rashes noted, no lesions or wounds seen Psych: Dysthymic, flattened defect Objective Data Vital Signs Vital Signs: Vital Signs - 24 hr 09/22/22 14:00 09/22/22 22:00 09/23/22 05:27 Temperature 97.6 F 97.7 F 97.4 F L Pulse Rate 71 100 76 Respiratory Rate 18 16 18 Blood Pressure 163/35 H 178/76 H 168/77 H Pulse Oximetry 98 100 99 Oxygen Delivery 09/23/22 10:00 09/23/22 10:29 09/23/22 10:39 Temperature 97.7 F Pulse Rate 63 80 72 Respiratory Rate 18 24 H 18 Blood Pressure 181/76 H 141/79 H 159/87 H Pulse Oximetry 99 98 96 Oxygen Delivery Room Air Room Air Room Air 09/23/22 10:49 Temperature Pulse Rate 62 Respiratory Rate 18 Blood Pressure 160/86 H Pulse Oximetry 98 Oxygen Delivery Room Air Intake/Output Intake/Output: Intake & Output 09/20/22 09/21/22 09/22/22 09/23/22 23:59 23:59 23:59 23:59 Intake Total 3440 3480 1600 400 Output Total 800 1800 1200 700 Balance 2640 1680 400 -300 Meds/Results Medications: Active Medications Generic Name Dose Route Start Last Admin Trade Name Freq PRN Reason Stop Dose Admin Atorvastatin Calcium 40 mg 09/21/22 09:00 09/22/22 09:21 Atorvastatin 40 Mg Tablet PO 40 mg DAILY ARMAAN Administration Ferrous Sulfate 324 mg 09/21/22 09:00 09/22/22 09:21 Ferrous Sulfate 324 Mg Tablet PO 324 mg DAILY ARMAAN Administration
--- NOTE | 2022-09-23 13:37 | PCOTNOTE ---
Attempted to see pt. for occupational therapy evaluation. Per nursing, pt. is being taken down for testing is unavailable to be seen for evaluation at this time. Following.
--- NOTE | 2022-09-23 13:47 | PCPTNOTE ---
Attempted to see pt. for Physical therapy evaluation. Per nursing, pt. is being taken down for testing is unavailable to be seen for evaluation at this time. Following.
[2022-09-23] MEDS: lisinopriL 20 MG TABLET 40 MG PO ×2 (16:45→20:16)
[2022-09-23] MEDS: FERROUS SULFATE 324 MG TABLET PO (16:45)
[2022-09-23] MEDS: ATORVASTATIN 40 MG TABLET PO (16:45)
[2022-09-23] MEDS: POTASSIUM CHLORIDE 20 MEQ TABLET 40 MEQ PO (20:15)
[2022-09-23] MEDS: PANTOPRAZOLE SODIUM IV 40 MG VIAL IV PUSH (20:17)
[2022-09-24] MEDS: SODIUM CHLORIDE 0.9% IV 1,000 ML 75 ML IV CONT (05:35)
[2022-09-24 05:37] VITALS: BP 163/73; PULSE 65; RESP 16; TEMP 35.9; O2SAT 98
[2022-09-24 06:22] LABS: Eosinophils Absolute Auto 0.1 K/mm3 (0-0.3); Eosinophils Percent Auto 2.2 % (0-4.4); Hematocrit 31.3 % (42.0-52.0); Hemoglobin 10.2 g/dL (14.0-18.0); Immature Granulocyte Absolute 0.03 K/mm3 (0.00-0.031); Immature Granulocyte Percent A 0.7 % (0-0.5); Lymphocytes Absolute Auto 0.54 K/mm3 (0.9-3.2); Lymphocytes Percent Auto 13.5 % (18.3-44.2); Mean Corpuscular HGB Conc 32.6 g/dl (32-36); Mean Corpuscular Hemoglobin 30.2 pg (26-34); Mean Corpuscular Volume 92.6 fl (80-100); Mean Platelet Volume 9.6 fl (7.4-10.4); Monocytes Absolute Auto 0.4 K/mm3 (0.1-0.6); Monocytes Percent Auto 9.2 % (2.6-8.5); Neutrophils Percent Auto 74.4 % (45.5-73.1); Platelet Count Result 143 k/mm3 (150-375); Red Blood Count 3.38 M/mm3 (4.6-6.20); Red Cell Distribution Width 14.9 % (11.5-14.5)
[2022-09-24 06:37] LABS: Alanine Aminotransferase 16 U/L (6-50); Albumin Level 2.4 g/dL (3.5-5.1); Alkaline Phosphatase 55 U/L (38-126); Anion Gap 3 mmol/L (8-16); Aspartate Amino Transferase 22 U/L (17-59); Bilirubin,Total 0.5 mg/dL (0.2-1.3); Blood Urea Nitrogen 16 mg/dL (9-20); Calcium 7.5 mg/dL (8.4-10.2); Carbon Dioxide 23 mmol/L (22-30); Chloride 110 mmol/L (98-107); Estimated CRCL calculation 45 ml/min; Estimated Glomerular Filt Rate > 60; Glucose 86 mg/dL (65-110); Sodium 136 mmol/L (137-145)
[2022-09-24] MEDS: PANTOPRAZOLE SODIUM IV 40 MG VIAL IV PUSH ×2 (07:58→21:51)
--- NOTE | 2022-09-24 08:13 | PC.NURSE ---
Medications given and assessments charted from under [facility] were actually done by this RN, Aldo Gamez. This workstation had been previously logged in by this RN, but [facility] had taken computer. This RN neglected to change profiles back, forgetting [facility] had taken this workstation.
[2022-09-24] MEDS: ATORVASTATIN 40 MG TABLET PO (08:30)
[2022-09-24] MEDS: FERROUS SULFATE 324 MG TABLET PO (08:30)
[2022-09-24] MEDS: lisinopriL 20 MG TABLET 40 MG PO ×2 (08:30→21:51)
--- NOTE | 2022-09-24 13:40 | WPDGIPROGNO ---
Progress Note: A&P Assessment and Plan (1) Erosive gastritis: Code(s): K29.60 - Other gastritis without bleeding Status: Acute Assessment and Plan: continue with ppi twice daily report of dark stool but h/h stable pending path report from egd will follow from afar (2) Acute on chronic anemia: Code(s): D64.9 - Anemia, unspecified Status: Acute Assessment and Plan: h/h stable on ppi (3) Gastric wall thickening: Code(s): K31.89 - Other diseases of stomach and duodenum Status: Acute (4) Crohn's disease: Code(s): K50.90 - Crohn's disease, unspecified, without complications Status: Chronic Assessment and Plan: he is seeing GI at another hospital and had recent colonoscopy (5) History of CVA with residual deficit: Code(s): I69.30 - Unspecified sequelae of cerebral infarction Status: Chronic Subjective Date/time seen: 09/24/22 13:40 Interval history: no events, no abdominal pain. EGD yesterday with erosive gastritis without active bleeding. 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, h/o Crohn's Review of Systems Review of Systems: All systems reviewed & are unremarkable except as noted in HPI and below Exam Const: General: comfortable and no acute distress HENMT: Face/Nose/Sinus: Normal nares present Eyes: General: appearance normal, both eyes and all related structures Neck: Neck: no JVD Resp: Auscultation: clear to auscultation bilaterally Cardio: Rate: regular rate Rhythm: regular rhythm GI: Inspection: non-distended GI Palp: Yes Soft to palpation and No Tenderness to palpation present (GI) Auscultation: normal bowel sounds Skin: General skin exam: normal color Neuro: Speech: normal speech Motor exam (neuro): 5/5 motor strength present throughout Extrem: General: normal to inspection Psych: Mental Status: mental status grossly normal Objective Data Vital Signs Vital Signs: Vital Signs - 24 hr 09/23/22 14:00 09/23/22 22:00 09/23/22 20:00 Temperature 97.0 F L 98 F Pulse Rate 72 80 80 Respiratory Rate 14 16 16 Blood Pressure 175/87 H 140/61 Pulse Oximetry 99 98 98 Oxygen Delivery Room Air 09/24/22 05:37 09/24/22 10:31 Temperature 96.7 F L Pulse Rate 65 Respiratory Rate 16 Blood Pressure 163/73 H Pulse Oximetry 98 Oxygen Delivery Room Air Intake/Output Intake/Output: Intake & Output 09/21/22 09/22/22 09/23/22 09/24/22 23:59 23:59 23:59 23:59 Intake Total 3480 1600 1600 555 Output Total 1800 1200 700 650 Balance 1680 400 900 -95 Meds/Results Medications: Active Medications Generic Name Dose Route Start Last Admin Trade Name Freq PRN Reason Stop Dose Admin Atorvastatin Calcium 40 mg 09/21/22 09:00 09/24/22 08:30 Atorvastatin 40 Mg Tablet PO 40 mg DAILY ARMAAN Administration Ferrous Sulfate 324 mg 09/21/22 09:00 09/24/22 08:30 Ferrous Sulfate 324 Mg Tablet PO 324 mg DAILY ARMAAN Administration Home Med 3 each 09/23/22 09:00 09/24/22 12:49 Balsalazide 750 Mg Capsule Home Med PO 10/23/22 08:59 3 each TID ARMAAN Administration Hydralazine HCl 25 mg 09/23/22 01:03 09/23/22 01:49 Hydralazine Hcl 25 Mg Tablet PO 25 mg Q6H PRN Administration Hypertension Sodium Chloride 1,000 mls @ 75 mls/hr 09/20/22 04:30 09/24/22 05:35 Normal Saline Iv IV CONT 75 mls/hr .[id number] ARMAAN Administration Lisinopril 40 mg 09/20/22 23:55 09/24/22 08:30 Lisinopril 20 Mg Tablet PO 40 mg Q12HR ARMAAN Administration Ondansetron HCl 4 mg 09/20/22 04:28 Ondansetron Inj 4 Mg/2 Ml Vial IV PUSH Q4H PRN Nausea Pantoprazole Sodium 40 mg 09/20/22 21:00 09/24/22 07:58 Pantoprazole Sodium Iv 40 Mg Vial IV PUSH 40 mg Q12HR ARMAAN Administration Radiology Results: ITS Impressions Chest X-Ray 09/20/22 07:05 IMPRESSION: 1. No acute cardiopulmonary abnormality. Chest/Abdo
[2022-09-24 14:00] VITALS: BP 143/60; PULSE 67; RESP 16; TEMP 36.7; O2SAT 98
--- NOTE | 2022-09-24 14:16 | P.PNAN_ITS ---
Anes - Prog Note Post-Op Date/Time: 09/24/22 14:16 Cardiovascular status: normal Respiratory status: normal Airway patency: baseline Mental status: baseline Post-Op hydration status: normal Vital Signs: Last Vital Signs Temp 35.9 C L 09/24/22 05:37 Pulse 65 09/24/22 05:37 Resp 16 09/24/22 05:37 BP 163/73 H 09/24/22 05:37 Pulse Ox 98 09/24/22 05:37 O2 Del Method Room Air 09/24/22 10:31 Pain Score (VAS): 0 I/O: Intake & Output 09/23/22 09/24/22 09/24/22 23:59 07:59 15:59 Intake Total 200 75 480 Output Total 650 Balance 200 -575 480 Laboratory Tests 09/24/22 05:50 09/24/22 05:50 09/24/22 09/24/22 05:50 05:50 WBC 4.0 L RBC 3.38 L Hgb 10.2 L Hct 31.3 L MCV 92.6 MCH 30.2 MCHC 32.6 RDW 14.9 H Plt Count 143 L MPV 9.6 Immature Gran % (Auto) 0.7 H Neut % (Auto) 74.4 H Lymph % (Auto) 13.5 L [place] % (Auto) 9.2 H Eos % (Auto) 2.2 Baso % (Auto) 0.0 L Lymph # (Auto) 0.54 L [place] # (Auto) 0.4 Eos # (Auto) 0.1 Baso # (Auto) 0.0 Abs Immat Gran (auto) 0.03 Absolute Neuts (auto) 3.0 Absolute Nucleated RBC 0.0 Nucleated RBC % 0.0 Sodium 136 L Potassium 4.0 Chloride 110 H Carbon Dioxide 23 Anion Gap 3 L BUN 16 Creatinine 1.00 Estim Creat Clear Calc 45 Estimated GFR > 60 Glucose 86 Calcium 7.5 L Total Bilirubin 0.5 AST 22 ALT 16 Alkaline Phosphatase 55 Total Protein 5.0 L Albumin 2.4 L Post-procedural complaints: none Patient Feedback: Patient satisfied with anesthetic care.
--- NOTE | 2022-09-24 15:14 | PM.IMPN ---
Progress Note: A&P Assessment and Plan (1) Crohn's disease: Code(s): K50.90 - Crohn's disease, unspecified, without complications Status: Chronic Assessment and Plan: Pt having some rank red bleeding in the toilet sidhu. Pt under GI. pt had EGD yesterday with erosive gastritis without active bleeding. Pt had recent colonoscopy showing benign stricture in right colon, h/o Crohn's Continue to monitor in the hospital. On iv fluids watch hb (2) Benign essential hypertension: Code(s): I10 - Essential (primary) hypertension Status: Chronic Assessment and Plan: continue home meds (3) History of CVA with residual deficit: Code(s): I69.30 - Unspecified sequelae of cerebral infarction Status: Chronic Assessment and Plan: stable, cont statin, not on aspirin we have old records from PCP and [facility] (4) Lactic acidosis: Code(s): E87.20 - Acidosis, unspecified Status: Resolved Assessment and Plan: resolved with IVF (5) Elevated troponin: Code(s): R77.8 - Other specified abnormalities of plasma proteins Status: Resolved Assessment and Plan: likely from demand ischemia. 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 (8) Hyperlipidemia: Code(s): E78.5 - Hyperlipidemia, unspecified Status: Chronic Assessment and Plan: Cont statin (9) Iron deficiency anemia: Code(s): D50.9 - Iron deficiency anemia, unspecified Status: Chronic Assessment and Plan: Hgb 8 at admission, Hb is 10 now (10) Gastric wall thickening: Code(s): K31.89 - Other diseases of stomach and duodenum Status: Acute Assessment and Plan: GI consulted Plan DVT prophylaxis with SCDs GI prophylaxis with PPI Code status full code Subjective Date/time seen: 09/24/22 15:14 Interval history: Pt having some rank red bleeding in the toilet sidhu. Pt under GI. pt had EGD yesterday with erosive gastritis without active bleeding. Pt had recent colonoscopy showing benign stricture in right colon, h/o Crohn's Continue to monitor in the hospital. Pt had CT abdo, HIDA scan already seen by GI. Exam Narrative: General: Elderly man pleasant nature CV: Regular rate and rhythm, S1, S2 Lungs: Clear to auscultation bilaterally Abdomen: Soft, nontender, nondistended Extremities: Normal to inspection Skin: No rashes noted, no lesions or wounds seen Objective Data Vital Signs Vital Signs: Vital Signs - 24 hr 09/23/22 22:00 09/23/22 20:00 09/24/22 05:37 Temperature 36.6 C 35.9 C L Pulse Rate 80 80 65 Respiratory Rate 16 16 16 Blood Pressure 140/61 163/73 H Pulse Oximetry 98 98 98 Oxygen Delivery Room Air 09/24/22 10:31 Temperature Pulse Rate Respiratory Rate Blood Pressure Pulse Oximetry Oxygen Delivery Room Air Intake/Output Intake/Output: Intake & Output 09/21/22 09/22/22 09/23/22 09/24/22 23:59 23:59 23:59 23:59 Intake Total 3480 1600 1600 795 Output Total 1800 1200 700 650 Balance 1680 400 900 145 Meds/Results Medications: Active Medications Generic Name Dose Route Start Last Admin Trade Name Freq PRN Reason Stop Dose Admin Atorvastatin Calcium 40 mg 09/21/22 09:00 09/24/22 08:30 Atorvastatin 40 Mg Tablet PO 40 mg DAILY ARMAAN Administration Ferrous Sulfate 324 mg 09/21/22 09:00 09/24/22 08:30 Ferrous Sulfate 324 Mg Tablet PO 324 mg DAILY ARMAAN Administration Home Med 3 each 09/23/22 09:00 09/24/22 12:49 Balsalazide 750 Mg Capsule Home Med PO 10/23/22 08:59 3 each TID ARMAAN Administration Hydralazine HCl 25 mg
--- NOTE | 2022-09-24 15:26 | PCOTNOTE ---
Patient not seen for OT this date. Will continue plan of care.
[2022-09-24 20:00] VITALS: PULSE 81; RESP 18; O2SAT 98
[2022-09-24 22:00] VITALS: BP 160/61; PULSE 81; RESP 18; TEMP 36.5; O2SAT 98
[2022-09-25 06:00] VITALS: BP 140/54; PULSE 73; RESP 18; TEMP 36.5; O2SAT 100
[2022-09-25 07:38] LABS: Basophils Percent Auto 0.2 % (0.2-1.2); Eosinophils Absolute Auto 0.1 K/mm3 (0-0.3); Eosinophils Percent Auto 1.9 % (0-4.4); Hematocrit 29.3 % (42.0-52.0); Hemoglobin 9.7 g/dL (14.0-18.0); Immature Granulocyte Absolute 0.04 K/mm3 (0.00-0.031); Immature Granulocyte Percent A 0.9 % (0-0.5); Lymphocytes Absolute Auto 0.48 K/mm3 (0.9-3.2); Lymphocytes Percent Auto 10.3 % (18.3-44.2); Mean Corpuscular HGB Conc 33.1 g/dl (32-36); Mean Corpuscular Hemoglobin 30.7 pg (26-34); Mean Corpuscular Volume 92.7 fl (80-100); Mean Platelet Volume 9.4 fl (7.4-10.4); Monocytes Absolute Auto 0.6 K/mm3 (0.1-0.6); Neutrophils Absolute Auto 3.5 K/mm3 (1.3-6.7); Neutrophils Percent Auto 74.7 % (45.5-73.1); Platelet Count Result 131 k/mm3 (150-375); Red Blood Count 3.16 M/mm3 (4.6-6.20); Red Cell Distribution Width 14.9 % (11.5-14.5); White Blood Count 4.7 K/mm3 (4.5-10.0)
[2022-09-25 07:41] LABS: Alanine Aminotransferase 15 U/L (6-50); Albumin Level 2.3 g/dL (3.5-5.1); Alkaline Phosphatase 60 U/L (38-126); Anion Gap 3 mmol/L (8-16); Aspartate Amino Transferase 20 U/L (17-59); Bilirubin,Total 0.4 mg/dL (0.2-1.3); Blood Urea Nitrogen 17 mg/dL (9-20); Calcium 7.7 mg/dL (8.4-10.2); Carbon Dioxide 25 mmol/L (22-30); Chloride 109 mmol/L (98-107); Estimated CRCL calculation 45 ml/min; Estimated Glomerular Filt Rate > 60; Glucose 91 mg/dL (65-110); Potassium 3.9 mmol/L (3.4-5.0); Sodium 137 mmol/L (137-145)
--- NOTE | 2022-09-25 09:19 | PM.IMPN ---
Progress Note: A&P Assessment and Plan (1) Crohn's disease: Code(s): K50.90 - Crohn's disease, unspecified, without complications Status: Chronic Assessment and Plan: Pt having some rank red bleeding in the toilet sidhu. Pt under GI. pt had EGD yesterday with erosive gastritis without active bleeding. Pt had recent colonoscopy showing benign stricture in right colon, h/o Crohn's Continue to monitor in the hospital. On iv fluids watch hb (2) Benign essential hypertension: Code(s): I10 - Essential (primary) hypertension Status: Chronic Assessment and Plan: continue home meds (3) History of CVA with residual deficit: Code(s): I69.30 - Unspecified sequelae of cerebral infarction Status: Chronic Assessment and Plan: stable, cont statin, not on aspirin we have old records from PCP and [facility] Was on Plavix but stopped due to recent rectal bleed back in end of June (4) Lactic acidosis: Code(s): E87.20 - Acidosis, unspecified Status: Resolved Assessment and Plan: resolved with IVF (5) Elevated troponin: Code(s): R77.8 - Other specified abnormalities of plasma proteins Status: Resolved Assessment and Plan: likely from demand ischemia. 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 (8) Hyperlipidemia: Code(s): E78.5 - Hyperlipidemia, unspecified Status: Chronic Assessment and Plan: Cont statin (9) Iron deficiency anemia: Code(s): D50.9 - Iron deficiency anemia, unspecified Status: Chronic Assessment and Plan: Hgb 8 at admission, Hb is 10 now (10) Gastric wall thickening: Code(s): K31.89 - Other diseases of stomach and duodenum Status: Acute Assessment and Plan: GI consulted Findings of ischemic colitis in recent colonoscopy biopsy. Likely reason for his rectal bleed. He reported he was sent home on steroid but he is currently not on 1 Plan DVT prophylaxis with SCDs GI prophylaxis with PPI Code status full code Subjective Date/time seen: 09/25/22 09:19 Interval history: 82-year-old male with past medical history of Crohn's colitis presents with generalized weakness. Recently admitted at [facility]. Colonoscopy with benign stricture in right colon. EGD her with erosive gastritis without active bleeding. H&H was down to 6 needing transfusion here. Slowly drifting down. Mild thrombocytopenia. Elevated D-dimer. CMP normal mild troponin elevation on admission. Chest x-ray negative. CTA chest abdomen pelvis with no PE right lower lobe atelectasis/ scarring. Pneumobilia on intraluminal gas in the gallbladder which could be due to instrumentation. Correlate for cholangitis/acute cholecystitis. Abnormal thickening of the gastric antrum and pylorus. Distal aortic and proximal left common iliac artery aneurysms. Venous duplex negative for DVT. Abdomen ultrasound with mild gallbladder wall thickening multiple echogenic foci along the gallbladder margins possibly adenomyomatosis. Definite gallstones are seen. Gallbladder wall thickening could indicate interstitial edema chronic liver disease or chronic cholecystitis. HIDA scan with biliary hypokinesis with more than 90% gallbladder ejection fraction He reports that he has not had any rectal bleed since day before. He has not had any bowel movement at all. Denies any abdominal pain. Nausea vomiting. He is eating some not a whole lot. Denies any chest pain or shortness of breath. Review of Systems Review of Systems: All systems reviewed & are unremarkable except as noted in
[2022-09-25] MEDS: lisinopriL 20 MG TABLET 40 MG PO ×2 (10:05→21:15)
[2022-09-25] MEDS: FERROUS SULFATE 324 MG TABLET PO (10:05)
[2022-09-25] MEDS: PANTOPRAZOLE SODIUM IV 40 MG VIAL IV PUSH ×2 (10:06→21:14)
[2022-09-25] MEDS: ATORVASTATIN 40 MG TABLET PO (10:06)
[2022-09-25 10:49] LABS: Lactic Acid Reflex 1.1 mmol/L (0.7-2.0)
[2022-09-25 14:00] VITALS: BP 128/67; PULSE 75; RESP 14; TEMP 36.7; O2SAT 100
[2022-09-25 14:25] LABS: IFOB Positive Control Positive; Immunochemical Fecal Occult Bl Positive (N)
[2022-09-25 22:00] VITALS: BP 136/69; PULSE 84; RESP 20; TEMP 37.1; O2SAT 99
[2022-09-26 06:00] VITALS: BP 150/72; PULSE 85; RESP 18; TEMP 36.5; O2SAT 98
[2022-09-26 07:03] LABS: Basophils Percent Auto 0.3 % (0.2-1.2); Eosinophils Absolute Auto 0.1 K/mm3 (0-0.3); Eosinophils Percent Auto 2.4 % (0-4.4); Hematocrit 28.1 % (42.0-52.0); Hemoglobin 9.1 g/dL (14.0-18.0); Immature Granulocyte Absolute 0.02 K/mm3 (0.00-0.031); Immature Granulocyte Percent A 0.5 % (0-0.5); Lymphocytes Absolute Auto 0.64 K/mm3 (0.9-3.2); Lymphocytes Percent Auto 17.2 % (18.3-44.2); Mean Corpuscular HGB Conc 32.4 g/dl (32-36); Mean Corpuscular Hemoglobin 30.8 pg (26-34); Mean Corpuscular Volume 95.3 fl (80-100); Mean Platelet Volume 9.6 fl (7.4-10.4); Monocytes Absolute Auto 0.5 K/mm3 (0.1-0.6); Monocytes Percent Auto 12.9 % (2.6-8.5); Neutrophils Absolute Auto 2.5 K/mm3 (1.3-6.7); Neutrophils Percent Auto 66.7 % (45.5-73.1); Platelet Count Result 136 k/mm3 (150-375); Red Blood Count 2.95 M/mm3 (4.6-6.20); Red Cell Distribution Width 15.2 % (11.5-14.5); White Blood Count 3.7 K/mm3 (4.5-10.0)
[2022-09-26 07:11] LABS: Alanine Aminotransferase 13 U/L (6-50); Albumin Level 2.3 g/dL (3.5-5.1); Alkaline Phosphatase 54 U/L (38-126); Anion Gap 5 mmol/L (8-16); Aspartate Amino Transferase 18 U/L (17-59); Bilirubin,Total 0.3 mg/dL (0.2-1.3); Blood Urea Nitrogen 17 mg/dL (9-20); Calcium 7.6 mg/dL (8.4-10.2); Carbon Dioxide 25 mmol/L (22-30); Chloride 106 mmol/L (98-107); Estimated CRCL calculation 49 ml/min; Estimated Glomerular Filt Rate > 60; Glucose 80 mg/dL (65-110); Magnesium 1.9 mg/dL (1.6-2.3); Potassium 3.7 mmol/L (3.4-5.0); Sodium 136 mmol/L (137-145)
[2022-09-26] MEDS: FERROUS SULFATE 324 MG TABLET PO (09:51)
[2022-09-26] MEDS: lisinopriL 20 MG TABLET 40 MG PO ×2 (09:51→20:48)
[2022-09-26] MEDS: ATORVASTATIN 40 MG TABLET PO (09:52)
[2022-09-26] MEDS: PANTOPRAZOLE SODIUM IV 40 MG VIAL IV PUSH ×2 (09:52→20:48)
--- NOTE | 2022-09-26 13:07 | PCDIET ---
New screen for stage 2 scarum pressure wound. Add juan BID provides 80kcal and 2.5g protein per serving packet. Will readjust protein needs on follow up.
--- NOTE | 2022-09-26 13:15 | PCNSR ---
On 09/26/22, the student, Randy Pena, provided care and completed [employer] documentation on this patient. I have reviewed the student's documentation and agree with the findings.
--- NOTE | 2022-09-26 13:41 | PM.IMPN ---
Progress Note: A&P Assessment and Plan (1) Crohn's disease: Code(s): K50.90 - Crohn's disease, unspecified, without complications Status: Chronic Assessment and Plan: Pt having some rank red bleeding in the toilet sidhu. Pt under GI. pt had EGD yesterday with erosive gastritis without active bleeding. Pt had recent colonoscopy showing benign stricture in right colon, h/o Crohn's Continue to monitor in the hospital. On iv fluids watch hb (2) Benign essential hypertension: Code(s): I10 - Essential (primary) hypertension Status: Chronic Assessment and Plan: continue home meds (3) History of CVA with residual deficit: Code(s): I69.30 - Unspecified sequelae of cerebral infarction Status: Chronic Assessment and Plan: stable, cont statin, not on aspirin we have old records from PCP and [facility] Was on Plavix but stopped due to recent rectal bleed back in end of June Will order MRI to further evaluate if shows any new stroke we might need to start him on some antiplatelet. (4) Lactic acidosis: Code(s): E87.20 - Acidosis, unspecified Status: Resolved Assessment and Plan: resolved with IVF (5) Elevated troponin: Code(s): R77.8 - Other specified abnormalities of plasma proteins Status: Resolved Assessment and Plan: likely from demand ischemia. 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 (8) Hyperlipidemia: Code(s): E78.5 - Hyperlipidemia, unspecified Status: Chronic Assessment and Plan: Cont statin (9) Iron deficiency anemia: Code(s): D50.9 - Iron deficiency anemia, unspecified Status: Chronic Assessment and Plan: Hgb 8 at admission, Hb is 10 now Hemoglobin continues to decline no active signs of bleeding (10) Gastric wall thickening: Code(s): K31.89 - Other diseases of stomach and duodenum Status: Acute Assessment and Plan: GI consulted Findings of ischemic colitis in recent colonoscopy biopsy. Likely reason for his rectal bleed. He reported he was sent home on steroid but he is currently not on 1 Stomach biopsy positive for H pylori and chronic active gastritis (11) H. pylori infection: Code(s): A04.8 - Other specified bacterial intestinal infections Status: Acute Assessment and Plan: start H pylori based treatment Plan DVT prophylaxis with SCDs GI prophylaxis with PPI Code status full code Subjective Date/time seen: 09/26/22 13:41 Interval history: 82-year-old male with past medical history of Crohn's colitis presents with generalized weakness. Recently admitted at [facility]. Colonoscopy with benign stricture in right colon. EGD her with erosive gastritis without active bleeding. H&H was down to 6 needing transfusion here. Slowly drifting down. Mild thrombocytopenia. Elevated D-dimer. CMP normal mild troponin elevation on admission. Chest x-ray negative. CTA chest abdomen pelvis with no PE right lower lobe atelectasis/ scarring. Pneumobilia on intraluminal gas in the gallbladder which could be due to instrumentation. Correlate for cholangitis/acute cholecystitis. Abnormal thickening of the gastric antrum and pylorus. Distal aortic and proximal left common iliac artery aneurysms. Venous duplex negative for DVT. Abdomen ultrasound with mild gallbladder wall thickening multiple echogenic foci along the gallbladder margins possibly adenomyomatosis. Definite gallstones are seen. Gallbladder wall thickening could indicate interstitial edema chronic liver disease or chronic cholecystitis.
[2022-09-26 14:00] VITALS: BP 144/76; PULSE 72; RESP 18; TEMP 36.5; O2SAT 100
--- NOTE | 2022-09-26 15:15 | WPDNEURCNPN ---
Consult date: 09/26/22 Reason for consult: stroke HPI: Tal Heck is a 82 year old male admitted to the hospital through the emergency room on September 20, 2022 with complaints of weakness in addition to the ongoing history of 1. Crohn's disease 2. Diarrhea with bleed, neurology consultation has been obtained now for the complaints of cerebrovascular accident. Up until now patient has undergone endoscopic exam with documentation of erosive gastritis without active bleeding, benign structure in the right colon, essential hypertension, patient does have ongoing history of I iliac artery aneurysm2, iron deficiency anemia. On September 26, 2022, patient was noted to have slurred speech, MRI of the brain on September 26, 2022 at 1342 revealed acute infarct in left caudate nucleus in addition to old infarcts involving the bilateral basal ganglia, posterior limb of the right internal capsule, right cerebellum, left occipital lobe, posterior left frontal lobe as well. Patient is receiving atorvastatin 40 mg daily, lisinopril 40 mg q.12 hours, aspirin 81 mg daily, and 324 mg once has been given. Sed rate is 34 and patient does have proximal left common and I like artery aneurysm on CTA of the chest and abdomen documented on September 20, 2022 Review of Systems Review of Systems: All systems reviewed & are unremarkable except as noted in HPI and below [facility] Past Medical History Medical History (Updated 09/26/22 @ 13:46 by Peterson Sinha MD) Acute on chronic anemia Benign essential hypertension Crohn's disease Erosive gastritis History of CVA with residual deficit Hyperlipidemia Iliac artery aneurysm Iron deficiency anemia Family History Family History Sibling Family history of malignant neoplasm Mother Patient's mother is Social History Social History Smoking packs per day: 1 Smoking cigarettes per day: 20.0 Smoking status: Former smoker Smoking end date: 09/20/22 Alcohol intake: former Drinks per week: 1 Substance use: never Has the Lack of Transportation Kept You From Medical Appointments or From Getting Medications?: No Within the Past 12 Months, Were You Worried Whether Your Food Would Run Out Before You Got Money to Buy More?: Never True What is Your Housing Situation Today?: I Have Housing Are You Worried That in the Next 2 Months, You May Not Have Your Own Housing to Live In?: No Do You Have Trouble Paying Your Heating Or Electricity Bill?: No Do You Have Trouble Paying For Medicines?: No Are You Currently Unemployed and Looking for Work?: No Highest Level of Education Completed: Associate Degree Do You Have Trouble With Childcare or the Care of a Family Member?: No Spiritual care concerns: No Meds Home Medications and Allergies Home Medications Medication Instructions Recorded Confirmed Type atorvastatin 40 mg tablet 40 mg PO DAILY 09/20/22 09/20/22 History balsalazide 750 mg capsule 750 mg PO TID 09/20/22 09/20/22 History ferrous sulfate 325 mg (65 mg 325 mg PO DAILY 09/20/22 09/20/22 History iron) tablet lisinopril 40 mg tablet 40 mg PO BID 09/20/22 09/20/22 History pantoprazole 40 mg tablet,delayed 40 mg PO DAILY 09/20/22 09/20/22 History release prednisone 20 mg tablet 40 mg PO DAILY 09/20/22 09/20/22 History Allergies Allergy/AdvReac Type Severity Reaction Status Date / Time No Known Allergies Allergy Verified 09/23/22 09:54 Vital Signs Vital Signs - 24 hr 09/25/22 22:00 09/26/22 06:00 09/26/22 12:07 Temperature 37.1 C 36.5 C Pulse Rate 84 85 Respiratory Rate 20 18 Blood Pressure 136/69 150/72 H Pulse Oximetry 99 98 Oxygen Delivery Room Air 09/26/22 14:00 Temperature 36.5 C Pulse Rate 72 Respiratory Rate 18 Blood Pressure 144/76 H Pulse Oximetry 100 Oxygen Delivery Results Labs CBC & Chem 7: 09/26
[2022-09-26] MEDS: ASPIRIN 81 MG CHEWABLE TABLET 324 MG PO (17:01)
[2022-09-26] MEDS: CLARITHROMYCIN 500 MG TABLET PO (20:48)
[2022-09-26] MEDS: AMOXICILLIN 500 MG CAPSULE 1000 MG PO (20:48)
[2022-09-26 22:00] VITALS: BP 140/54; PULSE 84; RESP 18; TEMP 37.3; O2SAT 98
--- NOTE | 2022-09-27 | ECHO_ITS ---
Patient Info Name: Tal Heck Age: 82 years : 1940 Gender: Male Ht: 69 in Wt: 138 lbs BSA: 1.74 m2 HR: 81 bpm Technical Quality: Fair Exam Date: 09/27/2022 4:18 PM Exam Location: [facility] Pulmonary Exam Room: [facility] Patient Status: Inpatient Admit Date: 09/21/2022 Staff Ordering Physician: Peterson Sinha MD Recovery Manager: Ene Rehman RDCS Attending Provider: Peterson Sinha MD Exam Type: CA echo doppler color flow Study Info Indications - stroke Complete two-dimensional, color flow and Doppler transthoracic echocardiogram is performed. Summary 1. Complete two-dimensional, color flow and Doppler transthoracic echocardiogram is performed. 2. Left ventricular chamber dimension is normal. 3. Left ventricular systolic function is normal, estimated at 65-70%. 4. The left ventricular diastolic function is grade I diastolic dysfunction. 5. E/e' 11 is mildly elevated. 6. Left atrial chamber dimension is mildly enlarged. 7. There is mild aortic valve sclerosis. 8. The mitral valve has mildly calcified annulus. 9. No pulmonary hypertension, estimated pulmonary arterial systolic pressure is 32 mmHg. 10. There is small to moderate right sided pericardial effusion. Echogenic material adherent to right ventricular free wall within pericardial space suggestive of chronicity of pericardial effusion. Left Ventricle E/e' 11 is mildly elevated. Left ventricular chamber dimension is normal. Left ventricular systolic function is normal, estimated at 65-70%. The left ventricular diastolic function is grade I diastolic dysfunction. Right Ventricle Right ventricular chamber dimension is normal. Right ventricular systolic function is normal. Left Atria Left atrial chamber dimension is mildly enlarged. Right Atria Right atrial chamber dimension is normal. Aortic Valve The aortic valve is trileaflet. There is mild aortic valve sclerosis. There is no aortic valve stenosis. There is no aortic valve regurgitation. Pulmonic Valve There is no pulmonic regurgitation. Mitral Valve The mitral valve has mildly calcified annulus. There is no mitral valve stenosis. There is no mitral valve regurgitation. Tricuspid Valve There is no tricuspid valve regurgitation. No pulmonary hypertension, estimated pulmonary arterial systolic pressure is 32 mmHg. Pericardium/Pleural There is small to moderate right sided pericardial effusion. Echogenic material adherent to right ventricular free wall within pericardial space suggestive of chronicity of pericardial effusion. No cardiac tamponade. Inferior Vena Cava Normal inferior vena cava with >50% collapse upon inspiration consistent with normal right atrial pressure, 5 mmHg. Aorta The aortic root size at the sinus of Valsalva is normal. Left Ventricular Outflow Tract Name Value Normal LVOT 2D LVOT Diameter 2.0 cm LVOT Doppler LVOT Peak Gradient 6 mmHg LVOT Mean Gradient 3 mmHg LVOT VTI 26 cm LVOT VTI/AV VTI Ratio 1.0 LVOT S
[2022-09-27 06:00] VITALS: BP 146/70; PULSE 70; RESP 18; TEMP 36.6; O2SAT 98
[2022-09-27 06:29] LABS: Basophils Percent Auto 0.5 % (0.2-1.2); Eosinophils Absolute Auto 0.1 K/mm3 (0-0.3); Eosinophils Percent Auto 2.6 % (0-4.4); Hemoglobin 9.4 g/dL (14.0-18.0); Immature Granulocyte Absolute 0.02 K/mm3 (0.00-0.031); Immature Granulocyte Percent A 0.5 % (0-0.5); Lymphocytes Absolute Auto 0.63 K/mm3 (0.9-3.2); Mean Corpuscular HGB Conc 32.4 g/dl (32-36); Mean Corpuscular Hemoglobin 30.2 pg (26-34); Mean Corpuscular Volume 93.2 fl (80-100); Mean Platelet Volume 9.4 fl (7.4-10.4); Monocytes Absolute Auto 0.6 K/mm3 (0.1-0.6); Monocytes Percent Auto 13.1 % (2.6-8.5); Neutrophils Absolute Auto 2.9 K/mm3 (1.3-6.7); Neutrophils Percent Auto 68.3 % (45.5-73.1); Platelet Count Result 147 k/mm3 (150-375); Red Blood Count 3.11 M/mm3 (4.6-6.20); Red Cell Distribution Width 15.3 % (11.5-14.5); White Blood Count 4.2 K/mm3 (4.5-10.0)
[2022-09-27 06:44] LABS: Alanine Aminotransferase 14 U/L (6-50); Albumin Level 2.4 g/dL (3.5-5.1); Alkaline Phosphatase 52 U/L (38-126); Anion Gap 4 mmol/L (8-16); Aspartate Amino Transferase 20 U/L (17-59); Bilirubin,Total 0.4 mg/dL (0.2-1.3); Blood Urea Nitrogen 20 mg/dL (9-20); Calcium 7.6 mg/dL (8.4-10.2); Carbon Dioxide 24 mmol/L (22-30); Chloride 109 mmol/L (98-107); Estimated CRCL calculation 49 ml/min; Estimated Glomerular Filt Rate > 60; Glucose 78 mg/dL (65-110); Potassium 3.7 mmol/L (3.4-5.0); Sodium 137 mmol/L (137-145)
[2022-09-27] MEDS: FERROUS SULFATE 324 MG TABLET PO (09:47)
[2022-09-27] MEDS: AMOXICILLIN 500 MG CAPSULE 1000 MG PO ×2 (09:47→21:23)
[2022-09-27] MEDS: CLARITHROMYCIN 500 MG TABLET PO ×2 (09:47→21:23)
[2022-09-27] MEDS: ASPIRIN 81 MG ENTERIC TABLET PO (09:47)
[2022-09-27] MEDS: ATORVASTATIN 40 MG TABLET PO (09:47)
[2022-09-27] MEDS: lisinopriL 20 MG TABLET 40 MG PO ×2 (10:03→21:22)
[2022-09-27] MEDS: PANTOPRAZOLE SODIUM IV 40 MG VIAL IV PUSH ×2 (10:03→21:22)
[2022-09-27 13:59] LABS: Cholesterol 115 mg/dL (0-200); HDL Direct 44 mg/dL; Triglycerides 58 mg/dL (<150)
[2022-09-27 14:00] VITALS: BP 132/58; PULSE 71; RESP 18; TEMP 36.3; O2SAT 100
--- NOTE | 2022-09-27 14:05 | WPDGIPROGNO ---
Progress Note: A&P Assessment and Plan (1) H. pylori infection: Code(s): A04.8 - Other specified bacterial intestinal infections Status: Acute Assessment and Plan: started on treatment (2) Erosive gastritis: Code(s): K29.60 - Other gastritis without bleeding Status: Acute Assessment and Plan: no signs of bleeding ppi no contraindications to use aspirin or plavix if medically indicated because new diagnosis of stroke (3) Acute on chronic anemia: Code(s): D64.9 - Anemia, unspecified Status: Acute Assessment and Plan: monitor h/h (4) Stroke: Code(s): I63.9 - Cerebral infarction, unspecified Status: Acute Assessment and Plan: new diagnosis Subjective Date/time seen: 09/27/22 14:05 Interval history: he had a recent CVA, path showed h pylori and started on treatment Review of Systems Review of Systems: All systems reviewed & are unremarkable except as noted in HPI and below Exam Narrative: General:? No acute distress, alert and oriented per baseline HEENT:? Atraumatic, normocephalic, mucous membranes moist CV:? Regular rate and rhythm, S1, S2 Lungs:? Clear to auscultation bilaterally, no rales or crackles noted, no wheezes, good air entry Abdomen:? Soft, nontender, nondistended Extremities:? Normal to inspection Left foot drop Skin:? No rashes noted, no lesions or wounds seen Psych:? Euthymic, normal affect Objective Data Vital Signs Vital Signs: Vital Signs - 24 hr 09/26/22 22:00 09/27/22 06:00 09/27/22 08:00 Temperature 99.1 F 97.8 F Pulse Rate 84 70 Respiratory Rate 18 18 Blood Pressure 140/54 L 146/70 H Pulse Oximetry 98 98 Oxygen Delivery Room Air Intake/Output Intake/Output: Intake & Output 09/24/22 09/25/22 09/26/22 09/27/22 23:59 23:59 23:59 23:59 Intake Total 1905 1087 1390 240 Output Total 1070 2385 1400 900 Balance 835 -1298 -10 -660 Meds/Results Medications: Active Medications Generic Name Dose Route Start Last Admin Trade Name Freq PRN Reason Stop Dose Admin Amoxicillin 1,000 mg 09/26/22 21:00 09/27/22 09:47 Amoxicillin 500 Mg Capsule PO 1,000 mg Q12HR ARMAAN Administration Aspirin 81 mg 09/27/22 09:00 09/27/22 09:47 Aspirin 81 Mg Enteric Tablet PO 81 mg QAM ARMAAN Administration Atorvastatin Calcium 40 mg 09/21/22 09:00 09/27/22 09:47 Atorvastatin 40 Mg Tablet PO 40 mg DAILY ARMAAN Administration Clarithromycin 500 mg 09/26/22 21:00 09/27/22 09:47 Clarithromycin 500 Mg Tablet PO 500 mg Q12HR ARMAAN Administration Ferrous Sulfate 324 mg 09/21/22 09:00 09/27/22 09:47 Ferrous Sulfate 324 Mg Tablet PO 324 mg DAILY ARMAAN Administration Home Med 3 each 09/23/22 09:00 09/27/22 12:41 Balsalazide 750 Mg Capsule Home Med PO 10/23/22 08:59 3 each TID ARMAAN Administration Hydralazine HCl 25 mg 09/23/22 01:03 09/23/22 01:49 Hydralazine Hcl 25 Mg Tablet PO 25 mg Q6H PRN Administration Hypertension Lisinopril 40 mg 09/20/22 23:55 09/27/22 10:03 Lisinopril 20 Mg Tablet PO 40 mg Q12HR ARMAAN Administration Ondansetron HCl 4 mg 09/20/22 04:28 Ondansetron Inj 4 Mg/2 Ml Vial IV PUSH Q4H PRN Nausea Pantoprazole Sodium 40 mg 09/20/22 21:00 09/27/22 10:03 Pantoprazole Sodium Iv 40 Mg Vial IV PUSH 40 mg Q12HR ARMAAN Administration Perflutren Lipid Microsphere 0 ml 09/27/22 13:18 Perflutren Lipid Microspheres 1.5 Ml Vial Diluted To 10 Ml Total Volume IV PUSH 09/29/22 13:18 ONCE PRN adequate visualization Protocol Radiology Results: ITS Impressions Chest X-Ray 09/20/22 07:05 IMPRESSION: 1. No acute cardiopulmonary abnormality. Chest/Abdomen/Pelvis CTA 09/20/22 07:40 IMPRESSION: 1. No evidence for pulmonary embolism. 2: Right lower lobe atelectasis/scarring. 3: Pneumobilia and intraluminal gas in the gallbladder which be could be due to instrumentation. Correla
[2022-09-27 14:10] LABS: LDL Cholesterol Direct 55 mg/dL
[2022-09-27 14:47] LABS: Hemoglobin A1C 5.3 % (<5.7)
--- NOTE | 2022-09-27 14:47 | PM.IMPN ---
Progress Note: A&P Assessment and Plan (1) Crohn's disease: Code(s): K50.90 - Crohn's disease, unspecified, without complications Status: Chronic Assessment and Plan: Pt having some rank red bleeding in the toilet sidhu. Pt under GI. pt had EGD yesterday with erosive gastritis without active bleeding. Pt had recent colonoscopy showing benign stricture in right colon, h/o Crohn's Continue to monitor in the hospital. On iv fluids watch hb (2) Benign essential hypertension: Code(s): I10 - Essential (primary) hypertension Status: Chronic Assessment and Plan: continue home meds (3) History of CVA with residual deficit: Code(s): I69.30 - Unspecified sequelae of cerebral infarction Status: Chronic Assessment and Plan: stable, cont statin, not on aspirin we have old records from PCP and [facility] Was on Plavix but stopped due to recent rectal bleed back in end of June MRI came back positive for acute stroke in the left caudate nucleus. Along with old infarcts involving the bilateral basal ganglia posterior limb right internal capsule right cerebellum like occipital lobe and posterior left frontal lobe. Carotid ultrasound and echo ordered Started on aspirin full dose 325 given yesterday along with 81 mg to follow Used to be on aspirin and Plavix but was stopped due to rectal bleeding (4) Lactic acidosis: Code(s): E87.20 - Acidosis, unspecified Status: Resolved Assessment and Plan: resolved with IVF (5) Elevated troponin: Code(s): R77.8 - Other specified abnormalities of plasma proteins Status: Resolved Assessment and Plan: likely from demand ischemia. 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 (8) Hyperlipidemia: Code(s): E78.5 - Hyperlipidemia, unspecified Status: Chronic Assessment and Plan: Cont statin (9) Iron deficiency anemia: Code(s): D50.9 - Iron deficiency anemia, unspecified Status: Chronic Assessment and Plan: Hgb 8 at admission, Hb is 10 now Hemoglobin continues to decline no active signs of bleeding (10) Gastric wall thickening: Code(s): K31.89 - Other diseases of stomach and duodenum Status: Acute Assessment and Plan: GI consulted Findings of ischemic colitis in recent colonoscopy biopsy. Likely reason for his rectal bleed. He reported he was sent home on steroid but he is currently not on 1 Stomach biopsy positive for H pylori and chronic active gastritis (11) H. pylori infection: Code(s): A04.8 - Other specified bacterial intestinal infections Status: Acute Assessment and Plan: start H pylori based treatment Plan DVT prophylaxis with SCDs GI prophylaxis with PPI Code status full code Subjective Date/time seen: 09/27/22 14:47 Interval history: 82-year-old male with past medical history of Crohn's colitis presents with generalized weakness. Recently admitted at [facility]. Colonoscopy with benign stricture in right colon. EGD her with erosive gastritis without active bleeding. H&H was down to 6 needing transfusion here. Slowly drifting down. Mild thrombocytopenia. Elevated D-dimer. CMP normal mild troponin elevation on admission. Chest x-ray negative. CTA chest abdomen pelvis with no PE right lower lobe atelectasis/ scarring. Pneumobilia on intraluminal gas in the gallbladder which could be due to instrumentation. Correlate for cholangitis/acute cholecystitis. Abnormal thickening of the gastric antrum and pylorus. Distal aortic and proximal left common iliac artery aneur
[2022-09-27 20:30] VITALS: PULSE 79; RESP 18; O2SAT 97
[2022-09-27 22:00] VITALS: BP 132/53; PULSE 79; RESP 18; TEMP 37.6; O2SAT 97
[2022-09-28 06:00] VITALS: BP 139/62; PULSE 86; RESP 18; TEMP 37.8; O2SAT 97
[2022-09-28 06:19] LABS: Eosinophils Absolute Auto 0.1 K/mm3 (0-0.3); Eosinophils Percent Auto 1.3 % (0-4.4); Hematocrit 28.1 % (42.0-52.0); Hemoglobin 9.3 g/dL (14.0-18.0); Immature Granulocyte Absolute 0.02 K/mm3 (0.00-0.031); Immature Granulocyte Percent A 0.4 % (0-0.5); Lymphocytes Absolute Auto 0.43 K/mm3 (0.9-3.2); Lymphocytes Percent Auto 9.2 % (18.3-44.2); Mean Corpuscular HGB Conc 33.1 g/dl (32-36); Mean Corpuscular Hemoglobin 31.3 pg (26-34); Mean Corpuscular Volume 94.6 fl (80-100); Mean Platelet Volume 8.9 fl (7.4-10.4); Monocytes Absolute Auto 0.5 K/mm3 (0.1-0.6); Monocytes Percent Auto 10.9 % (2.6-8.5); Neutrophils Absolute Auto 3.7 K/mm3 (1.3-6.7); Neutrophils Percent Auto 78.2 % (45.5-73.1); Platelet Count Result 133 k/mm3 (150-375); Red Blood Count 2.97 M/mm3 (4.6-6.20); White Blood Count 4.7 K/mm3 (4.5-10.0)
[2022-09-28 06:33] LABS: Alanine Aminotransferase 14 U/L (6-50); Albumin Level 2.5 g/dL (3.5-5.1); Alkaline Phosphatase 55 U/L (38-126); Anion Gap 4 mmol/L (8-16); Aspartate Amino Transferase 22 U/L (17-59); Bilirubin,Total 0.5 mg/dL (0.2-1.3); Blood Urea Nitrogen 17 mg/dL (9-20); Calcium 7.6 mg/dL (8.4-10.2); Carbon Dioxide 25 mmol/L (22-30); Chloride 106 mmol/L (98-107); Estimated CRCL calculation 49 ml/min; Estimated Glomerular Filt Rate > 60; Glucose 89 mg/dL (65-110); Magnesium 1.8 mg/dL (1.6-2.3); Potassium 3.8 mmol/L (3.4-5.0); Sodium 135 mmol/L (137-145)
[2022-09-28] MEDS: ASPIRIN 81 MG ENTERIC TABLET PO (09:27)
[2022-09-28] MEDS: lisinopriL 20 MG TABLET 40 MG PO ×2 (09:27→20:47)
[2022-09-28] MEDS: ATORVASTATIN 40 MG TABLET PO (09:27)
[2022-09-28] MEDS: AMOXICILLIN 500 MG CAPSULE 1000 MG PO ×2 (09:27→20:47)
[2022-09-28] MEDS: FERROUS SULFATE 324 MG TABLET PO (09:27)
[2022-09-28] MEDS: CLARITHROMYCIN 500 MG TABLET PO ×2 (09:28→20:47)
[2022-09-28] MEDS: PANTOPRAZOLE SODIUM IV 40 MG VIAL IV PUSH ×2 (09:31→20:47)
--- NOTE | 2022-09-28 11:11 | PCSTNOTE ---
Bedside communication evaluation performed. Patient presents with decreased vocal range, reduced vocal intensity, slurred speech with imprecise consonants in connected speech. Overall intelligibility is reduced and likely difficult for unfamiliar listeners to understand, or familiar listeners with background noise or at a distance greater than 6 feet from patient. Expressive and receptive language skills appear to be WFL, as does cognition. Patient has no specific complaints about his speech but agrees he would like to have speech therapy to address his deficits. Recommend speech therapy 2/3 times per week to treat impaired intelligibility. Thank you for the referral of this patient.
[2022-09-28 14:00] VITALS: BP 142/63; PULSE 80; RESP 18; TEMP 36.9; O2SAT 100
--- NOTE | 2022-09-28 16:29 | PM.IMPN ---
Progress Note: A&P Assessment and Plan (1) Crohn's disease: Code(s): K50.90 - Crohn's disease, unspecified, without complications Status: Chronic Assessment and Plan: Pt having some rank red bleeding in the toilet sidhu. Pt under GI. pt had EGD yesterday with erosive gastritis without active bleeding. Pt had recent colonoscopy showing benign stricture in right colon, h/o Crohn's Continue to monitor in the hospital. On iv fluids watch hb Which remains stable (2) Benign essential hypertension: Code(s): I10 - Essential (primary) hypertension Status: Chronic Assessment and Plan: continue home meds (3) History of CVA with residual deficit: Code(s): I69.30 - Unspecified sequelae of cerebral infarction Status: Chronic Assessment and Plan: stable, cont statin, not on aspirin we have old records from PCP and [facility] Was on Plavix but stopped due to recent rectal bleed back in end of June MRI came back positive for acute stroke in the left caudate nucleus. Along with old infarcts involving the bilateral basal ganglia posterior limb right internal capsule right cerebellum like occipital lobe and posterior left frontal lobe. Carotid ultrasound and echo ordered Started on aspirin full dose 325 given yesterday along with 81 mg to follow Used to be on aspirin and Plavix but was stopped due to rectal bleeding (4) Lactic acidosis: Code(s): E87.20 - Acidosis, unspecified Status: Resolved Assessment and Plan: resolved with IVF (5) Elevated troponin: Code(s): R77.8 - Other specified abnormalities of plasma proteins Status: Resolved Assessment and Plan: likely from demand ischemia. 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 (8) Hyperlipidemia: Code(s): E78.5 - Hyperlipidemia, unspecified Status: Chronic Assessment and Plan: Cont statin (9) Iron deficiency anemia: Code(s): D50.9 - Iron deficiency anemia, unspecified Status: Chronic Assessment and Plan: Hgb 8 at admission, Hb is 10 now Hemoglobin continues to decline no active signs of bleeding (10) Gastric wall thickening: Code(s): K31.89 - Other diseases of stomach and duodenum Status: Acute Assessment and Plan: GI consulted Findings of ischemic colitis in recent colonoscopy biopsy. Likely reason for his rectal bleed. He reported he was sent home on steroid but he is currently not on 1 Stomach biopsy positive for H pylori and chronic active gastritis (11) H. pylori infection: Code(s): A04.8 - Other specified bacterial intestinal infections Status: Acute Assessment and Plan: start H pylori based treatment (12) Fever: Code(s): R50.9 - Fever, unspecified Status: Acute Assessment and Plan: 1 spike 09/28/2022. Will monitor further spikes will need to panculture no clinical signs of infection currently will monitor Plan DVT prophylaxis with SCDs GI prophylaxis with PPI Code status full code Subjective Date/time seen: 09/28/22 16:29 Interval history: 82-year-old male with past medical history of Crohn's colitis presents with generalized weakness. Recently admitted at [facility]. Colonoscopy with benign stricture in right colon. EGD her with erosive gastritis without active bleeding. H&H was down to 6 needing transfusion here. Slowly drifting down. Mild thrombocytopenia. Elevated D-dimer. CMP normal mild troponin elevation on admission. Chest x-ray negative. CTA chest abdomen pelvis with no PE right lower lobe atelectasis/ scarri
[2022-09-28 22:00] VITALS: BP 125/58; PULSE 86; RESP 17; TEMP 37; O2SAT 96
--- NOTE | 2022-09-29 01:25 | PC.NURSE ---
Daylight Savings Time For Daylight Savings Time Ending in the Fall - Clocks are moved back. For Daylight Savings Time Beginning in the Spring - Clocks are moved ahead. For [facility], the time of change occurs at 0200 hrs. Time is taken from the buffet server. This entry on the patient's chart recognizes the change in time reflected during documentation. Example: 2 entries for vital signs may be charted for 0200 hrs.
[2022-09-29 06:00] VITALS: BP 145/60; PULSE 81; RESP 16; TEMP 36.7; O2SAT 97
[2022-09-29 07:59] LABS: Hemoglobin 8.6 g/dL (14.0-18.0); Mean Corpuscular HGB Conc 31.9 g/dl (32-36); Mean Corpuscular Hemoglobin 30.7 pg (26-34); Mean Corpuscular Volume 96.4 fl (80-100); Platelet Count Result 133 k/mm3 (150-375); Red Cell Distribution Width 14.7 % (11.5-14.5); White Blood Count 4.2 K/mm3 (4.5-10.0)
[2022-09-29 08:00] LABS: Basophils Percent Auto 0.5 % (0.2-1.2); Eosinophils Absolute Auto 0.1 K/mm3 (0-0.3); Eosinophils Percent Auto 1.7 % (0-4.4); Immature Granulocyte Absolute 0.02 K/mm3 (0.00-0.031); Immature Granulocyte Percent A 0.5 % (0-0.5); Lymphocytes Absolute Auto 0.42 K/mm3 (0.9-3.2); Mean Platelet Volume 9.1 fl (7.4-10.4); Monocytes Absolute Auto 0.5 K/mm3 (0.1-0.6); Monocytes Percent Auto 12.3 % (2.6-8.5); Neutrophils Absolute Auto 3.2 K/mm3 (1.3-6.7)
[2022-09-29 08:11] LABS: Alanine Aminotransferase 13 U/L (6-50); Albumin Level 2.3 g/dL (3.5-5.1); Alkaline Phosphatase 53 U/L (38-126); Anion Gap 6 mmol/L (8-16); Aspartate Amino Transferase 19 U/L (17-59); Bilirubin,Total 0.6 mg/dL (0.2-1.3); Blood Urea Nitrogen 20 mg/dL (9-20); Calcium 7.5 mg/dL (8.4-10.2); Carbon Dioxide 23 mmol/L (22-30); Chloride 106 mmol/L (98-107); Estimated CRCL calculation 39 ml/min; Estimated Glomerular Filt Rate > 60; Glucose 86 mg/dL (65-110); Magnesium 1.9 mg/dL (1.6-2.3); Potassium 3.6 mmol/L (3.4-5.0); Sodium 135 mmol/L (137-145)
[2022-09-29] MEDS: PANTOPRAZOLE SODIUM IV 40 MG VIAL IV PUSH ×2 (10:04→21:08)
[2022-09-29] MEDS: AMOXICILLIN 500 MG CAPSULE 1000 MG PO ×2 (10:04→21:09)
[2022-09-29] MEDS: ATORVASTATIN 40 MG TABLET PO (10:04)
[2022-09-29] MEDS: FERROUS SULFATE 324 MG TABLET PO (10:05)
[2022-09-29] MEDS: lisinopriL 20 MG TABLET 40 MG PO ×2 (10:05→21:06)
[2022-09-29] MEDS: CLARITHROMYCIN 500 MG TABLET PO ×2 (10:05→21:06)
[2022-09-29] MEDS: ASPIRIN 81 MG ENTERIC TABLET PO (10:05)
--- NOTE | 2022-09-29 12:49 | PM.IMPN ---
Progress Note: A&P Assessment and Plan (1) Crohn's disease: Code(s): K50.90 - Crohn's disease, unspecified, without complications Status: Chronic Assessment and Plan: Pt having some tyrell red bleeding in the toilet sidhu. Pt under GI. pt had EGD yesterday with erosive gastritis without active bleeding. Pt had recent colonoscopy showing benign stricture in right colon, h/o Crohn's Continue to monitor in the hospital. On iv fluids watch hb Which remains stable (2) Benign essential hypertension: Code(s): I10 - Essential (primary) hypertension Status: Chronic Assessment and Plan: continue home meds (3) History of CVA with residual deficit: Code(s): I69.30 - Unspecified sequelae of cerebral infarction Status: Chronic Assessment and Plan: stable, cont statin, not on aspirin we have old records from PCP and [facility] Was on Plavix but stopped due to recent rectal bleed back in end of June MRI came back positive for acute stroke in the left caudate nucleus. Along with old infarcts involving the bilateral basal ganglia posterior limb right internal capsule right cerebellum like occipital lobe and posterior left frontal lobe. Carotid ultrasound and echo ordered Started on aspirin full dose 325 given yesterday along with 81 mg to follow Used to be on aspirin and Plavix but was stopped due to rectal bleeding (4) Lactic acidosis: Code(s): E87.20 - Acidosis, unspecified Status: Resolved Assessment and Plan: resolved with IVF (5) Elevated troponin: Code(s): R77.8 - Other specified abnormalities of plasma proteins Status: Resolved Assessment and Plan: likely from demand ischemia. 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 (8) Hyperlipidemia: Code(s): E78.5 - Hyperlipidemia, unspecified Status: Chronic Assessment and Plan: Cont statin (9) Iron deficiency anemia: Code(s): D50.9 - Iron deficiency anemia, unspecified Status: Chronic Assessment and Plan: Hgb 8 at admission, Hb is 10 now Hemoglobin continues to decline no active signs of bleeding (10) Gastric wall thickening: Code(s): K31.89 - Other diseases of stomach and duodenum Status: Acute Assessment and Plan: GI consulted Findings of ischemic colitis in recent colonoscopy biopsy. Likely reason for his rectal bleed. He reported he was sent home on steroid but he is currently not on 1 Stomach biopsy positive for H pylori and chronic active gastritis (11) H. pylori infection: Code(s): A04.8 - Other specified bacterial intestinal infections Status: Acute Assessment and Plan: started on H pylori based treatment (12) Fever: Code(s): R50.9 - Fever, unspecified Status: Acute Assessment and Plan: 1 spike 09/28/2022. Will monitor further spikes will need to panculture no clinical signs of infection currently will monitor Plan DVT prophylaxis with SCDs GI prophylaxis with PPI Code status full code Subjective Date/time seen: 09/29/22 12:49 Interval history: 82-year-old male with past medical history of Crohn's colitis presents with generalized weakness. Recently admitted at [facility]. Colonoscopy with benign stricture in right colon. EGD her with erosive gastritis without active bleeding. H&H was down to 6 needing transfusion here. Slowly drifting down. Mild thrombocytopenia. Elevated D-dimer. CMP normal mild troponin elevation on admission. Chest x-ray negative. CTA chest abdomen pelvis with no PE right lower lobe atelectasis/
[2022-09-29 14:00] VITALS: BP 98/62; PULSE 114; RESP 20; TEMP 36.8; O2SAT 99
--- NOTE | 2022-09-29 16:42 | PC.NURSE ---
Pt was able to get up and ambulate the garcia with PT. Pt was able to participate and contribute to plan of care. Pt has no complaints of pain at this time. Pt expresses no needs. Will continue to monitor pt.
[2022-09-29 21:49] VITALS: BP 112/53; PULSE 85; RESP 20; TEMP 36.7; O2SAT 97
[2022-09-30 06:00] VITALS: BP 129/69; PULSE 77; RESP 20; TEMP 36.6; O2SAT 99
[2022-09-30 06:32] LABS: Basophils Percent Auto 0.5 % (0.2-1.2); Eosinophils Absolute Auto 0.1 K/mm3 (0-0.3); Eosinophils Percent Auto 2.6 % (0-4.4); Hematocrit 27.3 % (42.0-52.0); Hemoglobin 8.7 g/dL (14.0-18.0); Immature Granulocyte Absolute 0.02 K/mm3 (0.00-0.031); Immature Granulocyte Percent A 0.5 % (0-0.5); Lymphocytes Absolute Auto 0.49 K/mm3 (0.9-3.2); Lymphocytes Percent Auto 11.8 % (18.3-44.2); Mean Corpuscular HGB Conc 31.9 g/dl (32-36); Mean Corpuscular Hemoglobin 30.9 pg (26-34); Mean Corpuscular Volume 96.8 fl (80-100); Mean Platelet Volume 9.3 fl (7.4-10.4); Monocytes Absolute Auto 0.5 K/mm3 (0.1-0.6); Monocytes Percent Auto 12.5 % (2.6-8.5); Neutrophils Percent Auto 72.1 % (45.5-73.1); Platelet Count Result 157 k/mm3 (150-375); Red Blood Count 2.82 M/mm3 (4.6-6.20); Red Cell Distribution Width 14.6 % (11.5-14.5); White Blood Count 4.2 K/mm3 (4.5-10.0)
[2022-09-30 06:39] LABS: Alanine Aminotransferase 12 U/L (6-50); Albumin Level 2.5 g/dL (3.5-5.1); Alkaline Phosphatase 56 U/L (38-126); Anion Gap 9 mmol/L (8-16); Aspartate Amino Transferase 20 U/L (17-59); Bilirubin,Total 0.5 mg/dL (0.2-1.3); Blood Urea Nitrogen 22 mg/dL (9-20); Calcium 7.6 mg/dL (8.4-10.2); Carbon Dioxide 24 mmol/L (22-30); Chloride 105 mmol/L (98-107); Estimated CRCL calculation 39 ml/min; Estimated Glomerular Filt Rate > 60; Glucose 90 mg/dL (65-110); Potassium 3.4 mmol/L (3.4-5.0); Sodium 138 mmol/L (137-145)
[2022-09-30] MEDS: lisinopriL 20 MG TABLET 40 MG PO (08:25)
[2022-09-30] MEDS: ASPIRIN 81 MG ENTERIC TABLET PO (08:25)
[2022-09-30] MEDS: FERROUS SULFATE 324 MG TABLET PO (08:25)
[2022-09-30] MEDS: AMOXICILLIN 500 MG CAPSULE 1000 MG PO (08:25)
[2022-09-30] MEDS: CLARITHROMYCIN 500 MG TABLET PO (08:25)
[2022-09-30] MEDS: ATORVASTATIN 40 MG TABLET PO (08:25)
[2022-09-30] MEDS: PANTOPRAZOLE SODIUM IV 40 MG VIAL IV PUSH (08:26)
--- NOTE | 2022-09-30 11:15 | PC.NURSE ---
Spoke with Sylvia regarding plans for the pt. I updated her on what he has been doing and that we will need another insurance auth for [facility] since he did not go over the weekend. She is ok with the current plan and asked that I call if I have any new information to give her.
[2022-09-30 14:41] VITALS: BP 102/62; PULSE 77; RESP 18; TEMP 37.1; O2SAT 100
--- NOTE | 2022-09-30 14:50 | PM.DS ---
DS: Admitting Diagnosis Discharge Date 09/30/2022 Admitting Diagnosis generalised weakness DS: Discharge Diagnosis Discharge Diagnosis (1) Crohn's disease: Code(s): K50.90 - Crohn's disease, unspecified, without complications Status: Chronic (2) Benign essential hypertension: Code(s): I10 - Essential (primary) hypertension Status: Chronic (3) History of CVA with residual deficit: Code(s): I69.30 - Unspecified sequelae of cerebral infarction Status: Chronic (4) Lactic acidosis: Code(s): E87.20 - Acidosis, unspecified Status: Resolved (5) Elevated troponin: Code(s): R77.8 - Other specified abnormalities of plasma proteins Status: Resolved (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 pylori infection: Code(s): A04.8 - Other specified bacterial intestinal infections Status: Acute (12) Fever: Code(s): R50.9 - Fever, unspecified Status: Acute DS: Summary Hospital Course Reason for hospitalization: 82-year-old male with past medical history of Crohn's colitis presents with generalized weakness.? Recently admitted at [facility].? Colonoscopy with benign stricture in right colon.? EGD her with erosive gastritis without active bleeding.? H&H was down to ? 6 needing transfusion here.? Slowly drifting down.? Mild thrombocytopenia.? Elevated D-dimer. ? CMP normal mild troponin elevation on admission.? Chest x-ray negative.? CTA chest abdomen pelvis with no PE right lower lobe atelectasis/ scarring.? Pneumobilia on intraluminal gas in the gallbladder which could be due to instrumentation.? Correlate for cholangitis/acute cholecystitis.? Abnormal thickening of the gastric antrum and pylorus.? Distal aortic and proximal left common iliac artery aneurysms.? Venous duplex negative for DVT.? Abdomen ultrasound with mild gallbladder wall thickening multiple echogenic foci along the gallbladder margins possibly adenomyomatosis.? Definite gallstones are seen.? Gallbladder wall thickening could indicate interstitial edema chronic liver disease or chronic cholecystitis.? HIDA scan with biliary hypokinesis with more than 90% gallbladder ejection fraction He reports that he has not had any rectal bleed since day before.? He has not had any bowel movement at all.? Denies any abdominal pain.? Nausea vomiting.? He is eating some not a whole lot.? Denies any chest pain or shortness of breath. Hospital Course: # Generaslied weakness: likely due to anemia due to rectal bleed. # Crohn's disease: Pt having some tyrell red bleeding in the toilet sidhu. Pt had EGD with erosive gastritis without active bleeding. Pt had recent colonoscopy showing? benign stricture in right colon, h/o Crohn's Continue to monitor in the hospital. On iv fluids watch hb? Which remains stable # Benign essential hypertension: continue home meds # History of CVA with residual deficit: stable, cont statin, not on aspirin we have old records from PCP and [facility] Was on Plavix but stopped due to recent rectal bleed back in end of June ?MRI came back positive for? acute stroke in the left caudate nucleus.? Along with old infarcts involving the bilateral basal ganglia posterior limb right internal capsule right cerebellum like occipital lobe and posterior left frontal lobe.? Carotid ultrasound and echo ordered Started on aspirin full dose 325 given yesterday along with 81 mg to follow Used to be on as
--- NOTE | 2022-09-30 15:44 | PC.NURSE ---
Ok to discharge pt per Dr. Obrien.
[2022-09-30 16:08] LABS: EDCOVIDSCREEN Negative (Negative)
--- NOTE | 2022-09-30 16:24 | PC.NURSE ---
Per Dr. Muller. Ok to be discharged.
[2022-09-30 20:00] VITALS: BP 117/70; PULSE 79; RESP 18; TEMP 36.8; O2SAT 97
--- NOTE | 2022-09-30 21:00 | PC.NURSE ---
Pt left the floor via EMS transfer to [facility]
== END 2022-09-30 21:10 | DRG 393 ==
LOC: ANHED 09-20 00:56 → ANH3MEDSUR 09-20 06:19
PROVIDERS: Internal Medicine Gastroenterology; Student in an Organized Health Care Education/Training Program; Admitting Provider Internal Medicine; Emergency Provider Emergency Medicine; PCP Internal Medicine; Visit Provider Internal Medicine
PROC: 0DJ08ZZ Inspection of Upper Intestinal Tract, Via Natural or Artificial Opening Endoscopic (ICD-10-PCS; CPT 43235; principal; 2022-09-23 14:30)
DX: K55.9 Vascular disorder of intestine, unspecified (principal); I63.89 Other cerebral infarction; E87.20 Acidosis, unspecified; K50.90 Crohn's disease, unspecified, without complications; I24.8 Other forms of acute ischemic heart disease; I10 Essential (primary) hypertension; I69.30 Unspecified sequelae of cerebral infarction; I72.3 Aneurysm of iliac artery; K82.8 Other specified diseases of gallbladder; E78.5 Hyperlipidemia, unspecified; D50.9 Iron deficiency anemia, unspecified; K31.89 Other diseases of stomach and duodenum; Z87.891 Personal history of nicotine dependence; K29.00 Acute gastritis without bleeding; A04.8 Other specified bacterial intestinal infections; R50.9 Fever, unspecified; D69.6 Thrombocytopenia, unspecified; R47.81 Slurred speech; Z80.9 Family history of malignant neoplasm, unspecified; Z79.82 Long term (current) use of aspirin; Z79.899 Other long term (current) drug therapy
CPT/HCPCS: 36415; 36430; 70551; 71045; 71275; 73080; 74177; 76705; 78227; 80053; 80061; 81001; 82274; 83036; 83605; 83690; 83735; 83880; 84145; 84484; 85014; 85018; 85025; 85027; 85380; 85610; 85652; 85730; 86140; 86850; 86900; 86901; 86923; 87426; 87502; 88305; 88313; 88342; 92522; 92523; 93005; 93306; 93880; 93971; 96361; 96374; 96375; 96376; 97110; 97161; 97165; 97530; 97535; 99285; A9270; A9537; C9113; C9803; G0378; J2405; J2704; J2805; J7030; J7050; J7120; P9016; Q9967; U0003; U0005

== ENCOUNTER 2022-10-20 10:29 | Emergency (ER) | payer OTHER, SELFPAY ==
--- NOTE | ~2022-10-20 | US_ITS ---
EXAMINATION: US venous doppler [facility] DATE: 10/20/2022 14:48 INDICATION: Bilateral lower extremity swelling . TECHNIQUE: Grayscale images without and with compression and Doppler images of the bilateral lower ex tremity veins were obtained. COMPARISON: 09/12/2022 FINDINGS: The right peroneal vein was incompletely visualized. The right common femoral vein, profunda (deep) f emoral vein, femoral vein, popliteal vein, posterior tibial veins, and greater saphenous vein are pat ent. The left peroneal vein was incompletely visualized. The left common femoral vein, profunda femoral ve in, femoral vein, popliteal vein, posterior tibial veins, and greater saphenous vein are patent. IMPRESSION: 1. Incomplete visualization of the bilateral peroneal veins. 2. Otherwise patent bilateral lower extremity veins. No evidence of deep venous thrombosis. Reviewed, dictated and finalized at location K. HY ASSEMBLER
--- NOTE | ~2022-10-20 | XR_ITS ---
XR chest 2V DATE: 10/20/2022 11:41 INDICATION: Edema TECHNIQUE: AP and lateral views COMPARISON: 09/20/2022 CTA chest FINDINGS: Heart size is normal. There is aortic calcification and tortuosity. No hilar or mediastinal enlargement. Bilateral hyperinflation. Prominent discoid atelectasis or scarring in the right lower lobe. No pleural effusion or pulmonary vascular congestion or pneumothorax. Diffuse osteopenia. Diffuse idiopathic skeletal hyperostosis of the thoracic spine. IMPRESSION: Prominent discoid atelectasis or scarring in the right lower lobe Bilateral hyperinflation Reviewed, dictated and finalized at location A. NCIAL ASSISTANCE SPECIALIST
--- NOTE | ~2022-10-20 | XR_ITS ---
EXAM: XR foot RT min 3V DATE: 10/20/2022 14:18 HISTORY: bruising to 2-4 RT toes. NKI . COMPARISON: None available. FINDINGS: Decreased mineralization. No fracture or dislocation. No lytic or blastic lesion. Achilles and plantar enthesopathy. Mild degenerative changes in multiple midfoot joints and the first MTP rhonda nt. The toes are held in flexion. No erosion or periosteal change. Forefoot soft tissue swelling. Mil d vascular calcification. IMPRESSION: Degenerative changes detailed above. No acute osseous finding in the right foot. Reviewed, dictated and finalized at location K. S MACHINIST IMPRESSION: Degenerative changes detailed above. No acute osseous finding in th e right foot.
[2022-10-20 11:00] VITALS: BP 100/47; PULSE 82; RESP 16; TEMP 36.7; O2SAT 100
--- NOTE | 2022-10-20 11:02 | ECG_ITS ---
Measurements Intervals Fromberg Rate: 76 P: 76 PA: 139 QRS: 39 QRSD: 82 T: 79 QT: 365 QTc: 411 Interpretive Statements SINUS RHYTHM BORDERLINE ST-T WAVE ABNORMALITY- HIGH LATERAL LEADS BASELINE ARTIFACT- I, III, AVR, AVL, AVF, V3 BORDERLINE ECG COMPARED TO ECG 09/20/2022 00:36:03 NO SIGNIFICANT CHANGES Electronically Signed On 10-20-2022 15:58:29 IT SALES REPRESENTATIVE by Khris Winters D.O.
[2022-10-20 11:19] LABS: Basophils Absolute Auto 0.1 K/mm3 (0.0-0.1); Basophils Percent Auto 0.9 % (0.2-1.2); Eosinophils Absolute Auto 0.1 K/mm3 (0-0.3); Hematocrit 33.2 % (42.0-52.0); Hemoglobin 10.4 g/dL (14.0-18.0); Immature Granulocyte Absolute 0.02 K/mm3 (0.00-0.031); Immature Granulocyte Percent A 0.4 % (0-0.5); Lymphocytes Absolute Auto 1.04 K/mm3 (0.9-3.2); Lymphocytes Percent Auto 18.6 % (18.3-44.2); Mean Corpuscular HGB Conc 31.3 g/dl (32-36); Mean Corpuscular Hemoglobin 30.8 pg (26-34); Mean Corpuscular Volume 98.2 fl (80-100); Mean Platelet Volume 9.6 fl (7.4-10.4); Monocytes Absolute Auto 0.6 K/mm3 (0.1-0.6); Monocytes Percent Auto 11.4 % (2.6-8.5); Neutrophils Absolute Auto 3.7 K/mm3 (1.3-6.7); Neutrophils Percent Auto 66.7 % (45.5-73.1); Platelet Count Result 166 k/mm3 (150-375); Red Blood Count 3.38 M/mm3 (4.6-6.20); Red Cell Distribution Width 14.9 % (11.5-14.5); White Blood Count 5.6 K/mm3 (4.5-10.0)
[2022-10-20 11:29] LABS: INR 1.1; Prothrombin Time 13.4 Seconds (11.1-14.7)
[2022-10-20 11:30] LABS: Partial Thromboplastin Time 29.7 SECONDS (22.3-36.8)
[2022-10-20 11:31] LABS: Alanine Aminotransferase 11 U/L (6-50); Alkaline Phosphatase 56 U/L (38-126); Anion Gap 4 mmol/L (8-16); Aspartate Amino Transferase 29 U/L (17-59); Bilirubin,Total 0.5 mg/dL (0.2-1.3); Blood Urea Nitrogen 24 mg/dL (9-20); Calcium 8.5 mg/dL (8.4-10.2); Carbon Dioxide 29 mmol/L (22-30); Chloride 105 mmol/L (98-107); Estimated CRCL calculation 45 ml/min; Estimated Glomerular Filt Rate > 60; Glucose 113 mg/dL (65-110); Potassium 4.3 mmol/L (3.4-5.0); Sodium 138 mmol/L (137-145)
[2022-10-20 11:39] LABS: NT Pro B Type Natriuretic Pept 938 pg/mL (5-100); Troponin I < 0.012 ng/mL (0.000-0.034)
[2022-10-20 13:16] VITALS: BP 137/59; PULSE 65; RESP 14; O2SAT 100
--- NOTE | 2022-10-20 14:41 | ED.EXTPRO ---
HPI - Extremity Problem General Chief complaint: Extremity Problem,Nontraumatic Stated complaint: leg edema Time Seen by Provider: 10/20/22 13:22 Source: patient, family, EMS and RN notes reviewed Mode of arrival: EMS Limitations: no limitations History of Present Illness HPI Narrative: This is an 82 year old male who [facility] leg edema. Patient's states patient was discharged from hospital since 09/30/22, and he has had edema since discharge. She reports he was placed on diuretic a few days ago , and his leg edema was worse yesterday. She also reports leaking from his legs and skin changes. Patient has been getting up and walking with physical therapy. He states he had not been elevating his legs at night, until yesterday. He states his swelling is much better today after keeping his legs elevated. He denies history of PE or DVT. He denies chest pain, sob, nausea, vomiting or dizziness. also noticed bruising to toes on his right foot. Patient denies any pain. Related Data Home Medications Medication Instructions Recorded Confirmed atorvastatin 40 mg tablet 40 mg PO DAILY 09/20/22 09/20/22 balsalazide 750 mg capsule 750 mg PO TID 09/20/22 09/20/22 ferrous sulfate 325 mg (65 mg 325 mg PO DAILY 09/20/22 09/20/22 iron) tablet lisinopril 40 mg tablet 40 mg PO BID 09/20/22 09/20/22 Allergies Allergy/AdvReac Type Severity Reaction Status Date / Time No Known Allergies Allergy Verified 10/20/22 13:19 Review of Systems Review of Systems: All systems reviewed & are unremarkable except as noted in HPI and below Constitutional: Constitutional: Denies fatigue ENT: Denies nasal congestion and Denies sore throat Cardiovascular: Cardiovascular: Denies chest pain and Denies radiating jaw, neck or arm pain Respiratory: Respiratory: Denies chest congestion, Denies cough and Denies dyspnea Gastrointestinal: Gastrointestinal: Denies abdominal pain, Denies nausea and Denies vomiting PMF Past Medical History Medical History Acute on chronic anemia Benign essential hypertension Crohn's disease Erosive gastritis History of CVA with residual deficit Hyperlipidemia Iliac artery aneurysm Iron deficiency anemia Stroke Family History Family History Sibling Family history of malignant neoplasm Mother Patient's mother is Social History Social History Smoking packs per day: 1 Smoking cigarettes per day: 20.0 Smoking status: Former smoker Smoking end date: 09/20/22 Alcohol intake: former Drinks per week: 1 Substance use: never Lack of Transportation: No Lack of Food: Never True Current Housing: I Have Housing Concerned About Future Housing: No Difficulty Paying Gas/Electric Bills: No Difficulty Paying for Meds: No Currently Unemployed: No Education: Associate Degree Difficulty w/ Childcare or Family Care: No Spiritual care concerns: No Exam Const: General: no acute distress and alert Nutritional Appearance: well nourished Orientation/consciousness: patient oriented x3 HENMT: Head: normal to inspection Eyes: EOM: EOMs intact bilaterally Chest: Chest palpation & inspection: normal inspection of the chest Resp: Effort & Inspection: normal respiratory effort Auscultation: clear to auscultation bilaterally Cardio: Rate: regular rate Rhythm: regular rhythm Heart sounds: no murmurs Other: bilateral pedal pulses GI: GI Palp: Yes Soft to palpation, No Tenderness to palpation present (GI), No Guarding due to palpation present (GI) and No Rigid due to palpation Auscultation: normal bowel sounds Skin: Wounds: no wounds Other: small spots of bruising to right toes 2, 3, Neuro: General: patient oriented x3 Speech: normal speech Extr
[2022-10-20 14:52] VITALS: BP 145/77; PULSE 67; RESP 15; O2SAT 100
== END 2022-10-20 15:38 ==
PROVIDERS: Emergency Medicine; Emergency Provider General Practice
DX: R60.0 Localized edema (principal); I10 Essential (primary) hypertension; I69.90 Unspecified sequelae of unspecified cerebrovascular disease; E78.5 Hyperlipidemia, unspecified; K50.90 Crohn's disease, unspecified, without complications; D50.9 Iron deficiency anemia, unspecified; Z87.891 Personal history of nicotine dependence; R94.31 Abnormal electrocardiogram [ECG] [EKG]
CPT/HCPCS: 36415; 71046; 73630; 80053; 83880; 84484; 85025; 85610; 85730; 93005; 93970; 99284

== ENCOUNTER 2023-02-10 14:18 | Outpatient (CLI) | payer OTHER, SELFPAY ==
[2023-02-10 14:48] LABS: Hematocrit 41.3 % (42.0-52.0); Hemoglobin 13.4 g/dL (14.0-18.0); Mean Corpuscular HGB Conc 32.4 g/dl (32-36); Mean Corpuscular Hemoglobin 30.6 pg (26-34); Mean Corpuscular Volume 94.3 fl (80-100); Mean Platelet Volume 10.6 fl (7.4-10.4); Platelet Count Result 173 k/mm3 (150-375); Red Blood Count 4.38 M/mm3 (4.6-6.20); Red Cell Distribution Width 12.7 % (11.5-14.5); White Blood Count 6.5 K/mm3 (4.5-10.0)
[2023-02-10 15:05] LABS: Alanine Aminotransferase 14 U/L (6-50); Albumin Level 4.3 g/dL (3.5-5.1); Alkaline Phosphatase 62 U/L (38-126); Anion Gap 5 mmol/L (8-16); Aspartate Amino Transferase 22 U/L (17-59); Bilirubin,Total 0.6 mg/dL (0.2-1.3); Blood Urea Nitrogen 33 mg/dL (9-20); Calcium 9.4 mg/dL (8.4-10.2); Carbon Dioxide 29 mmol/L (22-30); Chloride 107 mmol/L (98-107); Cholesterol 174 mg/dL (0-200); Estimated Glomerular Filt Rate 58; Glucose 104 mg/dL (65-110); HDL Direct 74 mg/dL; Iron 194 ug/dL (49-181); Potassium 4.1 mmol/L (3.4-5.0); Sodium 141 mmol/L (137-145); Triglycerides 94 mg/dL (<150)
[2023-02-10 15:15] LABS: Percent Iron Saturation 59 % (20-50)
[2023-02-10 15:17] LABS: LDL Cholesterol Direct 63 mg/dL
== END 2023-02-10 14:19 | disposition home or self-care (01) ==
PROVIDERS: PCP Emergency Medicine; Visit Provider Emergency Medicine
DX: E78.5 Hyperlipidemia, unspecified (principal); D50.9 Iron deficiency anemia, unspecified
CPT/HCPCS: 36415; 80053; 80061; 83540; 83550; 85027

== ENCOUNTER 2023-03-24 01:29 | Day surgery (SDC) | payer OTHER, SELFPAY ==
[2023-03-12 13:30] VITALS: BMI 22.4
[2023-03-24 11:44] VITALS: BP 138/62; PULSE 60; RESP 20; TEMP 35.7; O2SAT 100
[2023-03-24] MEDS: LACTATED RINGERS 1,000 ML 150 ML IV CONT (11:48)
--- NOTE | 2023-03-24 12:29 | WPDANESEPPF ---
Anes - Initial Pre Proc Eval Procedure: Operation Date: 03/24/23 13:00 Proposed Procedures p Esophagogastroduodenoscopy - Scott Rios MD s Flexible Sigmoidoscopy - Scott Rios MD Date/Time: 03/24/23 12:29 Surgeon: Scott Rios MD Pre Op Diagnosis: H pylori, crohn's disease Patient Data Age: 82 Gender: M Height: 1.75 m Weight: 66.6 kg Last Vital Signs Temp 96.2 F L 03/24/23 11:44 Pulse 60 03/24/23 11:44 Resp 20 03/24/23 11:44 BP 138/62 03/24/23 11:44 Pulse Ox 100 03/24/23 11:44 O2 Del Method Room Air 03/24/23 11:44 Allergies Allergy/AdvReac Type Severity Reaction Status Date / Time No Known Allergies Allergy Verified 03/24/23 11:42 Home Medications Medication Instructions Recorded Confirmed Type atorvastatin 40 mg tablet 40 mg PO DAILY 09/20/22 03/24/23 History balsalazide 750 mg capsule 750 mg PO TID 09/20/22 03/24/23 History ferrous sulfate 325 mg (65 mg 325 mg PO DAILY 09/20/22 03/24/23 History iron) tablet lisinopril 40 mg tablet 40 mg PO BID 09/20/22 03/24/23 History pantoprazole 40 mg tablet,delayed 40 mg PO BID #60 tabs 09/30/22 03/24/23 Rx release furosemide 20 mg tablet (Lasix) 20 mg PO QAM #90 tabs 11/12/22 03/24/23 Rx potassium chloride 10 mEq 10 meq PO DAILY #90 tabs 11/12/22 03/24/23 Rx tablet,extended release cholecalciferol (vitamin D3) 25 25 mcg PO DAILY 02/10/23 03/24/23 History mcg (1,000 unit) capsule Patient hx anesthesia problems: none Family hx anesthesia problems: none Results Review: All pre-operative results and documents have been reviewed as part of the pre-operative evaluation. [facility] Past Medical History Medical History Acute on chronic anemia Benign essential hypertension Crohn's disease Erosive gastritis History of CVA with residual deficit Hyperlipidemia Iliac artery aneurysm Iron deficiency anemia Stroke Family History Family History Sibling Family history of malignant neoplasm Mother Patient's mother is Social History Social History Smoking packs per day: 1 Smoking cigarettes per day: 20.0 Years smoked: 40 Smoking pack-years: 40.00 Smoking status: Former smoker Tobacco type: cigarettes Smoking end date: 09/20/22 Alcohol intake: never Drinks per week: 1 Substance use: never Substance use type: does not use Lack of Transportation: No Lack of Food: Never True Current Housing: I Have Housing Concerned About Future Housing: No Difficulty Paying Gas/Electric Bills: No Difficulty Paying for Meds: No Currently Unemployed: No Education: Associate Degree Difficulty w/ Childcare or Family Care: No Living arrangements: with family Spiritual care concerns: No Anes - Eval Final PreProcedure Day of Procedure 03/24/23 12:29 Patient weight: normal Heart: regular rate and rhythm Lungs: clear to auscultation Airway: Mallampati scale class III Neurological: alert and oriented Last oral intake: >/= 8 hours ASA classification: III Emergent: no Anesthetic plan: proceed Anesthesia type and monitoring: general GIVS and standard monitoring Results Review: All pre-operative results and documents have been reviewed as part of the pre-operative evaluation. Informed Consent: The patient's anesthetic plan and its attendant risks and benefits were discussed with the patient/family/POA. Questions were solicited and answers provided to the satisfaction of the patient/family/POA.
--- NOTE | 2023-03-24 12:59 | PM.HPGS ---
History of Present Illness History of Present Illness Consent: Risks, benefits, and alternatives have been discussed and questions answered. Patient agrees to proceed with procedure. Chief complaint: H pylori, crohn's disease Narrative: Tal Heck is a 82 year old male here for egd and sigmoidoscopy. He was admitted to the hospital 08/2022 when he presented with symptomatic anemia that required blood transfusion, EGD showed ulcerative gastritis + h pylori and treated, now using ppi daily, no more bleeding and repeat hb up to 13. He has history of Crohn's colitis diagnosed lat on balsalazide (never been on biologics), had colonoscopy last year at another hospital but lately with accidents . Review of Systems Constitutional: Constitutional: Denies headache(s) and Denies weakness Eyes: Eyes: Denies blurry vision ENT: Reports Normal hearing present, Denies headache(s) and Denies neck pain Cardiovascular: Cardiovascular: Denies chest pain and Denies dyspnea Respiratory: Respiratory: Denies dyspnea Gastrointestinal: Gastrointestinal: Reports no additional gastrointestinal complaints Genitourinary: Genitourinary: Denies dysuria Musculoskeletal: Musculoskeletal: Denies neck pain Integumentary/Breasts: Skin/Breast: Denies dry skin Neurologic: Reports Normal hearing present, Denies headache(s) and Denies weakness Psychiatric: Psychiatric: Denies anxiety Endocrine: Endocrine: Denies change in body appearance Hematologic/Lymphatic: Hematologic/Lymphatic: Denies easy bleeding Allergic/Immunologic: Allergic/Immunologic: Denies urticaria PMFSH Past Medical History Medical History Acute on chronic anemia Benign essential hypertension Crohn's disease Erosive gastritis History of CVA with residual deficit Hyperlipidemia Iliac artery aneurysm Iron deficiency anemia Stroke Family History Family History Sibling Family history of malignant neoplasm Mother Patient's mother is Social History Social History Smoking packs per day: 1 Smoking cigarettes per day: 20.0 Years smoked: 40 Smoking pack-years: 40.00 Smoking status: Former smoker Tobacco type: cigarettes Smoking end date: 09/20/22 Alcohol intake: never Drinks per week: 1 Substance use: never Substance use type: does not use Lack of Transportation: No Lack of Food: Never True Current Housing: I Have Housing Concerned About Future Housing: No Difficulty Paying Gas/Electric Bills: No Difficulty Paying for Meds: No Currently Unemployed: No Education: Associate Degree Difficulty w/ Childcare or Family Care: No Living arrangements: with family Spiritual care concerns: No Meds Home Medications and Allergies Home Medications Medication Instructions Recorded Confirmed Type atorvastatin 40 mg tablet 40 mg PO DAILY 09/20/22 03/24/23 History balsalazide 750 mg capsule 750 mg PO TID 09/20/22 03/24/23 History ferrous sulfate 325 mg (65 mg 325 mg PO DAILY 09/20/22 03/24/23 History iron) tablet lisinopril 40 mg tablet 40 mg PO BID 09/20/22 03/24/23 History pantoprazole 40 mg tablet,delayed 40 mg PO BID #60 tabs 09/30/22 03/24/23 Rx release furosemide 20 mg tablet (Lasix) 20 mg PO QAM #90 tabs 11/12/22 03/24/23 Rx potassium chloride 10 mEq 10 meq PO DAILY #90 tabs 11/12/22 03/24/23 Rx tablet,extended release cholecalciferol (vitamin D3) 25 25 mcg PO DAILY 02/10/23 03/24/23 History mcg (1,000 unit) capsule Allergies Allergy/AdvReac Type Severity Reaction Status Date / Time No Known Allergies Allergy Verified 03/24/23 11:42 Vital Signs Vital Signs - 24 hr 03/24/23 11:44 Temperature 96.2 F L Pulse Rate 60 Respiratory Rate 20 Blood Pressure 138/62 Pulse Oximetry 100 Oxygen Delivery Room
--- NOTE | 2023-03-24 13:21 | SUR.OPER ---
EGD completed at 1317, colonoscopy started at 1322
[2023-03-24 13:46] VITALS: BP 133/68; PULSE 61; RESP 18; O2SAT 99
[2023-03-24 13:56] VITALS: BP 134/74; PULSE 59; RESP 20; O2SAT 98
[2023-03-24 14:06] VITALS: BP 159/81; PULSE 57; RESP 16; O2SAT 100
== END 2023-03-24 14:32 | disposition home or self-care (01) ==
PROVIDERS: PCP Emergency Medicine; Visit Provider Internal Medicine Gastroenterology
PROC: 0DJ08ZZ Inspection of Upper Intestinal Tract, Via Natural or Artificial Opening Endoscopic (ICD-10-PCS; CPT 43235; principal; 2023-03-24 13:00)
PROC: 0DJD8ZZ Inspection of Lower Intestinal Tract, Via Natural or Artificial Opening Endoscopic (ICD-10-PCS; CPT 45330; 2023-03-24 13:00)
DX: K50.90 Crohn's disease, unspecified, without complications (principal); K56.600 Partial intestinal obstruction, unspecified as to cause; K50.10 Crohn's disease of large intestine without complications; K57.30 Diverticulosis of large intestine without perforation or abscess without bleeding; K64.8 Other hemorrhoids; K29.50 Unspecified chronic gastritis without bleeding; Z87.19 Personal history of other diseases of the digestive system; I10 Essential (primary) hypertension; E78.5 Hyperlipidemia, unspecified; D50.9 Iron deficiency anemia, unspecified; Z86.73 Personal history of transient ischemic attack (TIA), and cerebral infarction without residual deficits; I72.3 Aneurysm of iliac artery; Z87.891 Personal history of nicotine dependence
CPT/HCPCS: 45340; 43239; 88305; 88342; J2704; J7120

== ENCOUNTER 2023-05-19 08:20 | Outpatient (CLI) | payer OTHER, SELFPAY ==
[2023-05-19 09:07] LABS: Hematocrit 38.7 % (42.0-52.0); Hemoglobin 12.7 g/dL (14.0-18.0); Mean Corpuscular HGB Conc 32.8 g/dl (32-36); Mean Corpuscular Hemoglobin 31.4 pg (26-34); Mean Corpuscular Volume 95.8 fl (80-100); Mean Platelet Volume 10.6 fl (7.4-10.4); Platelet Count Result 149 k/mm3 (150-375); Red Blood Count 4.04 M/mm3 (4.6-6.20); Red Cell Distribution Width 12.8 % (11.5-14.5); White Blood Count 6.2 K/mm3 (4.5-10.0)
[2023-05-19 09:22] LABS: Alanine Aminotransferase 12 U/L (6-50); Albumin Level 3.7 g/dL (3.5-5.1); Alkaline Phosphatase 56 U/L (38-126); Anion Gap 4 mmol/L (8-16); Aspartate Amino Transferase 22 U/L (17-59); Bilirubin,Total 0.4 mg/dL (0.2-1.3); Blood Urea Nitrogen 24 mg/dL (9-20); CRP 0.8 mg/dL (<1.0); Calcium 9.3 mg/dL (8.4-10.2); Carbon Dioxide 31 mmol/L (22-30); Chloride 104 mmol/L (98-107); Estimated Glomerular Filt Rate > 60; Glucose 89 mg/dL (65-110); Potassium 3.8 mmol/L (3.4-5.0); Sodium 139 mmol/L (137-145)
[2023-05-19 09:51] LABS: Hepatitis B Surface Antigen Negative (Negative)
[2023-05-19 10:18] LABS: Erythrocyte Sedimentation Rate 21 mm/hr (0-20)
[2023-05-21 13:19] LABS: NIL 0.05 IU/mL; Quantiferon TB Plus, 1T NEGATIVE (NEGATIVE)
== END 2023-05-19 08:21 | disposition home or self-care (01) ==
PROVIDERS: PCP Emergency Medicine; Visit Provider Internal Medicine Gastroenterology
DX: D64.9 Anemia, unspecified (principal); K50.90 Crohn's disease, unspecified, without complications
CPT/HCPCS: 36415; 80053; 85027; 85652; 86140; 86480; 87340

== ENCOUNTER 2023-10-20 11:00 | Emergency (ER) | payer OTHER, SELFPAY ==
[2023-10-20 11:20] VITALS: BP 152/71; PULSE 76; RESP 15; TEMP 36.4; O2SAT 98
--- NOTE | 2023-10-20 13:56 | PC.NURSE ---
Pt states she has been cleaning wounds with dilute Clorox bleach, giving pt left over antibiotics she had at home.
[2023-10-20 14:29] VITALS: BP 154/83; PULSE 62; RESP 16; TEMP 36.5; O2SAT 98
--- NOTE | 2023-10-20 15:00 | ED.GENADULT ---
HPI - General Adult General Chief complaint: Wound/Laceration Stated complaint: pressure sores Time Seen by Provider: 10/20/23 13:49 History of Present Illness HPI narrative: 83-year-old male presents to the emergency department for evaluation of sores on his bottom and scrotum. Patient has been having worsening ulcers due to immobility. Patient has the ability move but states he does spend the majority of time sitting and watching sports. Since developing the bed sores the patient has become more mobile but states that the ointment they are using on the infected site has not been helping. Related Data Home Medications Medication Instructions Recorded Confirmed cholecalciferol (vitamin D3) 25 25 mcg PO DAILY 02/10/23 03/24/23 mcg (1,000 unit) capsule Allergies Allergy/AdvReac Type Severity Reaction Status Date / Time No Known Allergies Allergy Verified 08/07/23 13:34 Review of Systems Review of Systems: All systems reviewed & are unremarkable except as noted in HPI and below PMFSH Past Medical History Medical History Acute on chronic anemia Benign essential hypertension Chronic diarrhea Colon stricture Crohn's disease Erosive gastritis History of CVA with residual deficit Hyperlipidemia Iliac artery aneurysm Iron deficiency anemia Stroke Family History Family History Sibling Family history of malignant neoplasm Mother Patient's mother is Social History Social History Smoking packs per day: 0.5 Smoking cigarettes per day: 10.0 Years smoked: 40 Smoking pack-years: 20.00 Smoking status: Current every day smoker Tobacco type: cigarettes Smoking end date: 09/20/22 Alcohol intake: never Alcohol use details: Seldom Substance use: never Substance use type: does not use Current Housing: Decline to Answer Concerned About Future Housing: Decline to Answer Difficulty Paying Gas/Electric Bills: Decline to Answer Difficulty Paying for Meds: Decline to Answer Currently Unemployed: Decline to Answer Education: Decline to Answer Difficulty w/ Childcare or Family Care: Decline to Answer Living arrangements: with family Spiritual care concerns: No Exam Narrative: APPEARANCE: Well appearing, no pain, no distress, well-nourished. HEAD: normocephalic, atraumatic. EYES: PERRLA/EOMI, conjunctivae clear. NOSE: Normal no drainage EARS:TMS clear with good light reflex. THROAT: Pharynx clear, no exudate. NECK: Supple. No adenopathy, no masses. RESPIRATORY: Airway patent, respirations nonlabored. Clear to auscultation bilaterally, no rales, rhonchi, wheezing. CARDIOVASCULAR: Regular rate and rhythm without murmurs rubs or gallops. ABDOMINAL: Soft, nontender, nondistended, normal bowel sounds MUSCULOSKELETAL: Moves all extremities. Strength/ROM intact, No edema, No calf tenderness. NEURO: Alert. Cranial nerves II through XII intact. Good gait. Good coordination SKIN: multiple ulcerated areas around his anus and scrotum. no evidence of abscess Course Course Emergency Course: 83-year-old male presents to the emergency department for evaluation of sores to his scrotum and perianal region. no evidence of abscess. Patient is being treated for a cellulitis. Patient family updated on the plan for wound care and the importance of close follow-up with her primary care physician for a wound check. All questions and concerns were addressed. Both patient and family were comfortable with the plan for discharge and close follow-up. Vital Signs Vital signs: Vital Signs Temperature 97.6 F 10/20/23 11:20 Pulse Rate 76 10/20/23 11:20 Respiratory Rate 15 10/20/23 11:20 Blood Pressure 152/71 H 10/20/23 11:20 Pulse Oximetry 98 10/20/23 11:20 Oxygen Delivery Room Air 10/20/23 11:20 T
[2023-10-20] MEDS: ceFAZolin 1 GM/NS 50 ML 1 GM/50 ML BAG IVPB (15:10)
[2023-10-20 15:30] LABS: Basophils Percent Auto 0.5 % (0.2-1.2); Eosinophils Absolute Auto 0.1 K/mm3 (0-0.3); Eosinophils Percent Auto 0.7 % (0-4.4); Hematocrit 40.6 % (42.0-52.0); Hemoglobin 13.1 g/dL (14.0-18.0); Immature Granulocyte Absolute 0.02 K/mm3 (0.00-0.031); Immature Granulocyte Percent A 0.3 % (0-0.5); Lymphocytes Absolute Auto 0.83 K/mm3 (0.9-3.2); Lymphocytes Percent Auto 10.9 % (18.3-44.2); Mean Corpuscular HGB Conc 32.3 g/dl (32-36); Mean Corpuscular Hemoglobin 31.4 pg (26-34); Mean Corpuscular Volume 97.4 fl (80-100); Mean Platelet Volume 11.3 fl (7.4-10.4); Monocytes Percent Auto 13.1 % (2.6-8.5); Neutrophils Absolute Auto 5.7 K/mm3 (1.3-6.7); Neutrophils Percent Auto 74.5 % (45.5-73.1); Platelet Count Result 158 k/mm3 (150-375); Red Blood Count 4.17 M/mm3 (4.6-6.20); Red Cell Distribution Width 12.6 % (11.5-14.5); White Blood Count 7.6 K/mm3 (4.5-10.0)
[2023-10-20 15:39] LABS: Alanine Aminotransferase 12 U/L (6-50); Albumin Level 3.7 g/dL (3.5-5.1); Alkaline Phosphatase 46 U/L (38-126); Anion Gap 9 mmol/L (8-16); Aspartate Amino Transferase 24 U/L (17-59); Bilirubin,Total 0.6 mg/dL (0.2-1.3); Blood Urea Nitrogen 26 mg/dL (9-20); Calcium 9.2 mg/dL (8.4-10.2); Carbon Dioxide 25 mmol/L (22-30); Chloride 107 mmol/L (98-107); Estimated CRCL calculation 52 ml/min; Estimated Glomerular Filt Rate > 60; Glucose 115 mg/dL (65-110); Potassium 3.9 mmol/L (3.4-5.0); Sodium 141 mmol/L (137-145)
== END 2023-10-20 17:08 | disposition home or self-care (01) ==
PROVIDERS: Emergency Provider Emergency Medicine; PCP Emergency Medicine
DX: N49.2 Inflammatory disorders of scrotum (principal); K61.0 Anal abscess; I69.30 Unspecified sequelae of cerebral infarction; I10 Essential (primary) hypertension; E78.5 Hyperlipidemia, unspecified; D50.9 Iron deficiency anemia, unspecified; K50.90 Crohn's disease, unspecified, without complications; Z87.891 Personal history of nicotine dependence
CPT/HCPCS: 36415; 80053; 85025; 87070; 87205; 96365; 99284; J0690

== ENCOUNTER 2023-11-21 07:17 | Outpatient (RCR) | payer OTHER, SELFPAY ==
[2023-10-24 14:08] VITALS: BMI 22.1
[2023-10-24 14:10] VITALS: BMI 22.1
== END 2024-01-12 08:12 | disposition home or self-care (01) ==
LOC: ANHWOC 07:17
PROVIDERS: PCP Emergency Medicine; Visit Provider Emergency Medicine
DX: L98.499 Non-pressure chronic ulcer of skin of other sites with unspecified severity (principal)
CPT/HCPCS: 99213; 99214; G0463

== ENCOUNTER 2024-01-14 22:50 | Emergency (ER) | payer OTHER, SELFPAY ==
--- NOTE | ~2024-01-14 | CT_ITS ---
CT of the Abdomen and Pelvis: Indication: Nausea and vomiting, history of Crohn's disease Technique: 2.5 mm axial scans were obtained through the abdomen and pelvis following intravenous adm inistration of 100 cc of Omnipaque 350. Dose reduction technique was used on this scan by utilizing a utomated exposure control and iterative reconstruction technique. The dose-length product (DLP) was 3 02.96 mGy-cm. COMPARISON: 09/20/2022 Findings: Scans through the lung bases demonstrate chronic rounded atelectasis or scarring at the [facility] lung base, unchanged. The liver, gallbladder, and adrenal glands are within normal limits. Calcified splenic granulomas are present. Pancreatic calcifications suggest chronic pancreatitis. There are multiple bilateral renal cysts, as well as probable small bilateral nonobstructing renal stones. There are atherosclerotic piyush cifications of the aorta. Infrarenal abdominal aortic aneurysm measures up to 4 cm in maximum diamete r. No lymphadenopathy. Suggestion of mild wall thickening diffusely involving large and small bowel loops. No bowel obstruct ion. No abscess or free air. Images through the pelvis were performed. Urinary bladder unremarkable. No pelvic mass seen. No ascit es. Impression: Suspected mild wall thickening diffusely large and small bowel loops suggests nonspecific enterocolit is. Correlate clinically. 4 cm infrarenal abdominal aortic aneurysm. Small bilateral nonobstructing renal stones with multiple bilateral renal cysts. Chronic rounded atelectasis or scarring right lung base. Reviewed, dictated and finalized at [facility]. [facility] Impression: Suspected mild wall thickening diffusely large and small bowel loops suggests n onspecific enterocolitis. Correlate clinically. 4 cm infrarenal abdominal aortic aneurysm. Small bilateral nonobstructing renal stones with multiple bilateral renal cysts . Chronic rounded atelectasis or scarring right lung base.
[2024-01-14 22:51] VITALS: BP 122/67; PULSE 93; RESP 20; TEMP 36.3; O2SAT 98
[2024-01-15 00:13] VITALS: BP 144/79; PULSE 81; RESP 12; O2SAT 100
[2024-01-15] MEDS: SODIUM CHLORIDE 0.9% IV 1,000 ML 999 ML IV CONT ×2 (00:30→01:50)
[2024-01-15 00:33] LABS: Hematocrit 45.3 % (42.0-52.0); Hemoglobin 14.6 g/dL (14.0-18.0); Immature Platelet Fraction Pct 5.3 % (0.9-11.2); Mean Corpuscular HGB Conc 32.2 g/dl (32-36); Mean Corpuscular Hemoglobin 31.5 pg (26-34); Mean Corpuscular Volume 97.8 fl (80-100); Mean Platelet Volume 11.3 fl (7.4-10.4); Platelet Count Result 140 k/mm3 (150-375); Red Blood Count 4.63 M/mm3 (4.6-6.20); Red Cell Distribution Width 12.1 % (11.5-14.5); White Blood Count 13.2 K/mm3 (4.5-10.0)
[2024-01-15 00:44] LABS: Alanine Aminotransferase 13 U/L (6-50); Albumin Level 4.1 g/dL (3.5-5.1); Alkaline Phosphatase 83 U/L (38-126); Anion Gap 4 mmol/L (8-16); Aspartate Amino Transferase 29 U/L (17-59); Bilirubin,Total 0.6 mg/dL (0.2-1.3); Blood Urea Nitrogen 34 mg/dL (9-20); Calcium 9.7 mg/dL (8.4-10.2); Carbon Dioxide 28 mmol/L (22-30); Chloride 108 mmol/L (98-107); Estimated CRCL calculation 46 ml/min; Estimated Glomerular Filt Rate > 60; Glucose 119 mg/dL (65-110); Lipase 190 U/L (23-300); Potassium 4.3 mmol/L (3.4-5.0); Sodium 140 mmol/L (137-145)
[2024-01-15 00:57] LABS: Band Neutrophils Percent 7 % (0-6); Eosinophils Absolute Manual 0.13 K/mm3 (0.02-0.5); Eosinophils Percent Manual 1 % (0-4); Lymphocytes Absolute Manual 0.52 K/mm3 (1.1-4.5); Monocytes Absolute Manual 0.79 K/mm3 (0.1-0.90); Monocytes Percent Manual 6 % (3-9); Neutrophils Absolute Manual 11.74 K/mm3 (1.3-6.7); Neutrophils Percent Manual 82 % (46-73); Platelet Estimate Adequate (Adequate); Schistocytes None Seen (NORMAL); Total Cells Counted 100
[2024-01-15 00:58] LABS: Burr Cells 1+ (NORMAL); Tear Drop Cells 1+ (NORMAL)
[2024-01-15 01:05] VITALS: BP 154/75; PULSE 79; RESP 15; O2SAT 99
[2024-01-15 01:21] LABS: Influenza A QL RT-PCR Negative (Negative); Influenza B QL RT-PCR Negative (Negative); RSV RNA, RT-PCR Negative (Negative); SARS-CoV-2 RNA PCR Negative (Negative)
--- NOTE | 2024-01-15 01:27 | ED.NAVMDI ---
HPI - Nausea/Vomiting/Diarrhea General Chief complaint: Nausea/Vomiting/Diarrhea Stated complaint: nausea/vomiting Time Seen by Provider: 01/15/24 00:14 Source: patient Mode of arrival: EMS Limitations: no limitations History of Present Illness HPI Narrative: Patient is an 83-year-old male, with PMH of Crohn's Disease, previous CVA with some L sided deficits, who presents the ED via EMS with report of nausea, vomiting, diarrhea. Patient reports he had a large bowel movement around 6:00 p.m. which was normal in nature. He then became nauseous and began vomiting. He later developed watery diarrhea. Reports multiple episodes of emesis and diarrhea. Denies significant abdominal pain, rectal bleeding, melena, fevers, cough or cold symptoms. Patient sees Dr. Obrien for his Crohn's disease. Denies recent issues related to this. Denies sick contacts. Denies bad food exposure. Related Data Home Medications Medication Instructions Recorded Confirmed cholecalciferol (vitamin D3) 25 25 mcg PO DAILY 02/10/23 12/22/23 mcg (1,000 unit) capsule Allergies Allergy/AdvReac Type Severity Reaction Status Date / Time No Known Allergies Allergy Verified 01/15/24 00:14 Review of Systems Review of Systems: CONSTITUTIONAL: Denies fever, chills, or sweats. CARDIOVASCULAR: Denies chest pain. RESPIRATORY: Denies cough or dyspnea. GASTROINTESTINAL: See HPI. MUSCULOSKELETAL: Denies back pain, extremity pain, myalgia. NEUROLOGIC: Denies headache, dizziness, numbness, or weakness. All systems reviewed & are unremarkable except as noted in HPI and below PMFSH Past Medical History Medical History Acute on chronic anemia Benign essential hypertension Chronic diarrhea Colon stricture Crohn's disease Erosive gastritis History of CVA with residual deficit Hyperlipidemia Iliac artery aneurysm Iron deficiency anemia Stroke Family History Family History Sibling Family history of malignant neoplasm Mother Patient's mother is Social History Social History Smoking packs per day: 0.5 Smoking cigarettes per day: 10.0 Years smoked: 40 Smoking pack-years: 20.00 Smoking status: Current every day smoker Tobacco type: cigarettes Smoking end date: 09/20/22 Alcohol intake: never Alcohol use details: Seldom Substance use: never Substance use type: does not use Do You Feel Safe in your Home?: Yes Lack of Transportation: No Lack of Food: Never True Current Housing: I Have Housing Concerned About Future Housing: No Difficulty Paying Gas/Electric Bills: No Difficulty Paying for Meds: No Currently Unemployed: No Education: Associate Degree Difficulty w/ Childcare or Family Care: No Living arrangements: with family Spiritual care concerns: No Exam Narrative: GENERAL: Elderly. slightly frail appearing, non-toxic, in no acute distress. HEAD: Normocephalic, atraumatic. ENT: MMs dry. RESPIRATORY: Airway patent, respirations nonlabored. Clear to auscultation bilaterally, no rales, rhonchi, wheezing. CARDIOVASCULAR: Regular rate and rhythm without murmurs, rubs, or gallops. ABDOMINAL: Soft, no significant focal tenderness throughout abdomen, nondistended. Normoactive BS. MUSCULOSKELETAL: Moves all extremities. No gross deformities. SKIN: Warm, dry, normal color. Yellow staining of fingers. NEURO: A&O X3. Speech clear. No ataxic movements. PSYCHIATRIC: Appropriate mood and affect. Normal interaction. Course Vital Signs Vital signs: Vital Signs Temperature 97.3 F L 01/14/24 22:51 Pulse Rate 93 01/14/24 22:51 Respiratory Rate 20 01/14/24 22:51 Blood Pressure 122/67 01/14/24 22:51 Pulse Oximetry 98 01/14/24 22:51 Oxygen Delivery Room Air 01/14/24 22:51 Temperat
[2024-01-15] MEDS: ONDANSETRON INJ 4 MG/2 ML VIAL IV PUSH (01:50)
[2024-01-15] MEDS: FAMOTIDINE 20 MG/2 ML VIAL IV PUSH (01:50)
[2024-01-15 02:25] VITALS: BP 152/75; PULSE 88; RESP 20; O2SAT 98
[2024-01-15 02:39] LABS: Appearance Urine Clear (Clear); Bacteria Urine None Seen /hpf; Bilirubin Urine Negative (Negative); Color Urine Yellow (Yellow); Glucose Urine UA Trace mg/dL (Negative); Ketones Urine Negative (Negative); Leukocyte Esterase Ur Negative LEU/UL (Negative); Nitrate Urine Negative (Negative); Non Pathogenic Casts 0-2; Protein Urine 1+ mg/dL (Negative); Specific Grav Ur 1.055 (1.001-1.035); Squamous Epithelial Cell Urine None seen /hpf (Few); Urobilinogen Urine 0.2 mg/dL (<2.0); WBC Urine 0-5 /hpf; pH Urine 6.5 (5.0-9.0)
[2024-01-15 02:40] LABS: Add Urine Microscopic? YES
== END 2024-01-15 04:10 | disposition home or self-care (01) ==
PROVIDERS: Emergency Provider Physician Assistant; PCP Emergency Medicine
DX: K52.9 Noninfective gastroenteritis and colitis, unspecified (principal); R11.2 Nausea with vomiting, unspecified; K50.919 Crohn's disease, unspecified, with unspecified complications; Z20.822 Contact with and (suspected) exposure to COVID-19; F17.210 Nicotine dependence, cigarettes, uncomplicated; I10 Essential (primary) hypertension
CPT/HCPCS: 36415; 74177; 80053; 81001; 83690; 85025; 85055; 87637; 96361; 96374; 96375; 99284; J2405; J7030; Q9967

== ENCOUNTER 2024-03-01 12:20 | Observation (INO) | payer OTHER, SELFPAY ==
[2024-03-01] VITALS (20 sets, daily range): BP systolic 125–181; BP diastolic 60–85; PULSE 52–75; RESP 11–18; TEMP 36.4–36.6; O2SAT 96–100
--- NOTE | ~2024-03-01 | XR_ITS ---
EXAMINATION: XR hip RT min 2V DATE: 03/02/2024 15:51 INDICATION: Dragging the right lower extremity TECHNIQUE: Anteroposterior and frog-leg lateral views of the right hip were obtained. COMPARISON: None. FINDINGS: Alignment is normal. No fracture. Mild bilateral hip and moderate bilateral sacroiliac osteoarthritis . Moderate to severe lumbar spondylosis. There are some excreted contrast in the bladder likely from contrast enhanced CT angiography performed one day prior. IMPRESSION: 1. Mild bilateral hip osteoarthritis. No acute osseous abnormality. Reviewed, dictated and finalized at location A.
--- NOTE | ~2024-03-01 | MR_ITS ---
MRI of the thoracic spine Clinical History: Unsteady gait Technique: Axial T2-weighted and gradient images, and sagittal T1-weighted, T2-weighted, and STIR abby ges were acquired. Findings: There is no fracture or subluxation of the thoracic spine. Vertebral bodies maintain normal height and line. There is a probable developing Schmorl's node at the inferior endplate region of T1 0. No suspicious bone marrow signal abnormality seen. There is focal disc protrusion at T6-T7 centrally. No other disc bulge or herniation seen. No spinal cord compression evident. There is mild canal stenosis at T10-T11 with facet arthropathy. Paravertebral soft tissues are unremarkable. Impression: Mild degenerative changes, as above. Reviewed, dictated and finalized at [facility]. Impression: Mild degenerative changes, as above.
--- NOTE | ~2024-03-01 | MR_ITS ---
MRI of the brain Clinical History: CVA Technique: Axial and sagittal T1-weighted images were acquired. These were followed by axial T2-weigh jitendra, diffusion weighted, gradient, and FLAIR images. Following intravenous administration of 13 cc Mu ltiHance gadolinium, T1-weighted fat-sat imaging was performed in the axial and coronal planes. COMPARISON: 09/26/2022 Findings: There is no acute infarct, intracranial hemorrhage, or mass lesion. Moderate to advanced ch ronic microvascular ischemic changes are similar to prior exam. Stable focal old right cerebellar inf arct. Ventricles and subarachnoid spaces are mildly dilated. Orbits are unremarkable. Paranasal sinuses and mastoid air cells are clear. Major intracranial flow voids are intact. Sagittal midline structures are intact. No abnormal postcontrast enhancement identified. IMPRESSION: No acute abnormality. Moderate to advanced chronic microvascular ischemic change. Chronic focal infarct in the right cerebellum. Reviewed, dictated and finalized at [facility].
--- NOTE | ~2024-03-01 | XR_ITS ---
EXAMINATION: XR chest 1V portable DATE: 03/01/2024 14:57 INDICATION: Leg edema. Weakness. TECHNIQUE: A single frontal view of the chest was obtained. COMPARISON: None. FINDINGS: There is no pneumonia, pleural effusion, or pneumothorax. The heart size is normal. IMPRESSION: 1. No acute cardiopulmonary disease. Reviewed, dictated and finalized at location A.
--- NOTE | ~2024-03-01 | CT_ITS ---
EXAMINATION: CT diagnostic chest wo con DATE: 03/01/2024 17:20 INDICATION: Concern for bronchogenic carcinoma TECHNIQUE: Computed tomography (CT) of the chest was performed with 100 mL Omnipaque-350 intravenous contrast. Automated exposure control and iterative reconstruction technique were employed. The dose-l ength product was 161.22 mGy-cm. COMPARISON: CTA brain carotid, same date. FINDINGS: CHEST: Thoracic aorta: No significant dilation. Mild aortic calcification. Low-density blood pool as can be seen with anemia. Lung parenchyma and airways: 14 mm spiculated left upper lobe nodule. Right lower lobe scarring with areas of more prominent thickening/nodularity nodular, with calcification. Centrilobular emphysematou s change. Thoracic inlet, axillae and chest wall: No thyroid or soft tissue mass. No axillary lymphadenopathy. Mediastinum: No mass or lymphadenopathy. Prominent subcarinal nodes, not pathologic by size criteria. Heart and pericardium: Normal heart size. Small pericardial effusion. Coronary artery calcifications: Moderate. Pleura: No effusion or mass. Upper abdomen: Granulomatous calcifications in the spleen and liver. Right liver lobe cyst and lesion s that are too small to characterize. Contracted gallbladder. Multiple bilateral simple renal cysts. Thoracic bones: No acute osseous finding in the chest. IMPRESSION: 14 mm spiculated left upper lobe nodule suspicious for neoplastic disease. Consider follow-up CT at 3 months, PET/CT, or tissue sampling. Calcified somewhat nodular thickening in the right lower lobe presumably related to scar, although an additional site of neoplastic disease remains in the differential. Emphysematous change. Small pericardial effusion. Reviewed, dictated and finalized at location K. IMPRESSION: 14 mm spiculated left upper lobe nodule suspicious for neoplastic disease. Cons ider follow-up CT at 3 months, PET/CT, or tissue sampling. Calcified somewhat nodular thickening in the right lower lobe presumably relate d to scar, although an additional site of neoplastic disease remains in the dif ferential. Emphysematous change. Small pericardial effusion.
--- NOTE | ~2024-03-01 | CT_ITS ---
EXAMINATION: CTA brain carotid DATE: 03/01/2024 16:26 INDICATION: Cerebral vascular accident. Weakness. TECHNIQUE: Computed tomographic angiography (CTA) of the head was performed without and with 100 mL O mnipaque-350 intravenous contrast. CTA of the neck was performed with intravenous contrast. Automated exposure control and iterative reconstruction technique were employed. The dose-length product was 1 874.68 mGy-cm. Maximum intensity projection and volume rendered 3D-reconstructions were created by nancy santillan technologist on a separate workstation. COMPARISON: None. FINDINGS: HEAD CTA: There is an infarct in the right cerebellum. There are scattered areas of low attenuation i n the cerebral white matter. There is no intracranial hemorrhage or abnormal mass lesion. The ventric les are normal in size. There are likely changes of ocular lens replacement surgeries. There is mild mucosal thickening in the paranasal sinuses. There is a trace left mastoid effusion. The vertebral ar teries are codominant. There is no significant stenosis of basilar artery or the posterior cerebral a rteries. There is no significant stenosis of the intracranial internal carotid arteries or anterior o r middle cerebral arteries. Anterior communicating artery is normal. The posterior communicating yue gayla are normal. There is no aneurysm. NECK CTA: There is mild emphysema. There is a 14 mm nodule in left lung upper lobe. There are no path ologically enlarged lymph nodes. There is no significant stenosis of the vertebral arteries. There is plaque in the proximal internal carotid arteries. There is 72% stenosis of the proximal right nurse intern al carotid artery relative to normal distal artery lumen diameter (NASCET criteria). There is 46% moses nosis of the proximal left internal carotid artery relative to normal distal artery lumen diameter. T here is severe cervical spondylosis. IMPRESSION: 1. 16 mm nodule in left lung upper lobe suspicious for primary bronchogenic carcinoma. Noncontrast ch est CT is recommended. 2. Age-indeterminate infarct in right cerebellum. 3. No aneurysm or significant intracranial arterial stenosis. 4. 72% stenosis of the proximal right internal carotid artery relative to normal distal artery lumen diameter (NASCET criteria). 5. 46% stenosis of the proximal left internal carotid artery relative to normal distal artery lumen d iameter. Reviewed, dictated and finalized at location A. IMPRESSION: 1. 16 mm nodule in left lung upper lobe suspicious for primary bronchogenic car cinoma. Noncontrast chest CT is recommended. 2. Age-indeterminate infarct in right cerebellum. 3. No aneurysm or significant intracranial arterial stenosis. 4. 72% stenosis of the proximal right internal carotid artery relative to angel luis l distal artery lumen diameter (NASCET criteria). 5. 46% stenosis of the proximal left internal carotid artery relative to normal distal artery lumen diameter.
--- NOTE | ~2024-03-01 | XR_ITS ---
EXAMINATION: XR knee LT 3V DATE: 03/02/2024 08:05 INDICATION: Nonspecific left knee pain and limited range of motion TECHNIQUE: Anteroposterior, oblique and crosstable lateral views of the left knee were obtained COMPARISON: None. FINDINGS: Alignment is normal. No fracture. Joint spaces appear relatively preserved on nonweightbearing imagi ng. There is prominent enthesopathic ossification at the patellar origin of the patellar tendon. No j oint effusion/layering lipohemarthrosis. Atherosclerotic calcifications along the popliteal and dista l femoral arteries. Soft tissues are otherwise unremarkable. IMPRESSION: 1. No left knee joint effusion or acute osseous abnormality. 2. Chronic proximal patellar enthesopathy. Reviewed, dictated and finalized at location B.
--- NOTE | ~2024-03-01 | MR_ITS ---
MRI of the cervical spine Clinical History: Unsteady gait Technique: Axial T2-weighted and gradient images, and sagittal T1-weighted, T2-weighted, and STIR abby ges were acquired. Findings: There is minimal reversal normal cervical lordosis. No acute fracture or subluxation identi fied. No suspicious bone marrow signal abnormality identified. At C2-C3, there is minimal disc osteophyte complex. There is mild bilateral neural foraminal narrowin g with mild facet arthropathy. No central canal stenosis or cord compression. At C3-C4, disc osteophyte complex and facet arthropathy are present, with associated mild to moderate canal stenosis and mild cord compression. There is bilateral neural foraminal narrowing. At C4-C5, there is severe degenerative disc narrowing with minimal disc bulge. There is mild to moder ate canal stenosis without tyrell cord compression. There is right neural foraminal narrowing. Left ne ural foramen preserved. At C5-C6, there is moderate degenerative disc narrowing. Disc osteophyte complex results in moderate canal stenosis and cord compression, especially on the left side. There is mild left neural foraminal narrowing. Right neural foramen preserved. At C6-C7, there is severe degenerative disc narrowing. There is disc osteophyte complex resulting in moderate canal stenosis and probable minimal cord compression. There is bilateral neural foraminal na rrowing. No abnormal signal evident in the spinal cord. Paravertebral soft tissues are unremarkable. Impression: Severe degenerative spondylosis, as detailed above, including cord compression at C3-C4 and C5-C6. Th ere is multilevel neural foraminal narrowing and multilevel canal stenosis. Reviewed, dictated and finalized at [facility]. Impression: Severe degenerative spondylosis, as detailed above, including cord compression at C3-C4 and C5-C6. There is multilevel neural foraminal narrowing and multilev el canal stenosis.
--- NOTE | 2024-03-01 14:28 | ECG_ITS ---
Measurements Intervals [place] Rate: 53 P: 75 ME: 137 QRS: -46 QRSD: 78 T: 32 QT: 409 AVG RR 1114 QTc: 393 QTcB 387 QTcF 394 Interpretive Statements SINUS BRADYCARDIA MARKED LEFT AXIS DEVIATION [QRS AXIS < -30] MODERATE T-WAVE ABNORMALITY, CONSIDER INFERIOR ISCHEMIA [-0.1+mV T WAVE IN II/aVF] ABNORMAL ECG SEE SCANNED COPY FOR SIGNATURE MTDD
[2024-03-01 14:55] LABS: Basophils Percent Auto 0.6 % (0.2-1.2); Eosinophils Absolute Auto 0.1 K/mm3 (0-0.3); Eosinophils Percent Auto 1.2 % (0-4.4); Hematocrit 40.9 % (42.0-52.0); Hemoglobin 13.2 g/dL (14.0-18.0); Immature Granulocyte Absolute 0.01 K/mm3 (0.00-0.031); Immature Granulocyte Percent A 0.2 % (0-0.5); Lymphocytes Absolute Auto 0.89 K/mm3 (0.9-3.2); Lymphocytes Percent Auto 17.2 % (18.3-44.2); Mean Corpuscular HGB Conc 32.3 g/dl (32-36); Mean Corpuscular Hemoglobin 31.9 pg (26-34); Mean Corpuscular Volume 98.8 fl (80-100); Mean Platelet Volume 11.9 fl (7.4-10.4); Monocytes Absolute Auto 0.7 K/mm3 (0.1-0.6); Neutrophils Absolute Auto 3.5 K/mm3 (1.3-6.7); Neutrophils Percent Auto 67.8 % (45.5-73.1); Platelet Count Result 128 k/mm3 (150-375); Red Blood Count 4.14 M/mm3 (4.6-6.20); Red Cell Distribution Width 12.2 % (11.5-14.5); White Blood Count 5.2 K/mm3 (4.5-10.0)
[2024-03-01 14:59] LABS: Alanine Aminotransferase 11 U/L (6-50); Albumin Level 3.8 g/dL (3.5-5.1); Alkaline Phosphatase 61 U/L (38-126); Anion Gap 2 mmol/L (4-12); Aspartate Amino Transferase 20 U/L (17-59); Bilirubin,Total 0.5 mg/dL (0.2-1.3); Blood Urea Nitrogen 24 mg/dL (9-20); Calcium 9.5 mg/dL (8.4-10.2); Carbon Dioxide 29 mmol/L (22-30); Chloride 108 mmol/L (98-107); Estimated CRCL calculation 47 ml/min; Estimated Glomerular Filt Rate > 60; Glucose 81 mg/dL (65-110); Partial Thromboplastin Time 29.6 Seconds (22.3-36.8); Potassium 4.1 mmol/L (3.4-5.0); Sodium 139 mmol/L (137-145)
[2024-03-01 15:24] LABS: Influenza A QL RT-PCR Negative (Negative); Influenza B QL RT-PCR Negative (Negative); RSV RNA, RT-PCR Negative (Negative); SARS-CoV-2 RNA PCR Negative (Negative)
--- NOTE | 2024-03-01 15:46 | ED.GENADULT ---
HPI - General Adult General Chief complaint: Weakness Stated complaint: weak Time Seen by Provider: 03/01/24 14:22 History of Present Illness HPI narrative: 83-year-old male presenting to the emergency department for evaluation of increased generalized weakness. Patient has longstanding history of left leg weakness secondary to a prior CVA. The ex- reports that since January 24 and the patient has had increased difficulty with ambulation. Ex- states that the patient does live at home on his own and had typically been able to ambulate around the house but since January 25 he has had decreased ability to ambulate and increasingly difficulty caring for himself. Upon arrival emergency department patient had excessive difficulty transferring from the wheelchair to the cot. Patient does report multiple falls. Related Data Home Medications Medication Instructions Recorded Confirmed cholecalciferol (vitamin D3) 25 25 mcg PO DAILY 02/10/23 02/03/24 mcg (1,000 unit) capsule Allergies Allergy/AdvReac Type Severity Reaction Status Date / Time No Known Allergies Allergy Verified 02/03/24 13:08 Review of Systems Review of Systems: All systems reviewed & are unremarkable except as noted in HPI and below PMFSH Past Medical History Medical History Acute on chronic anemia Benign essential hypertension Chronic diarrhea Colon stricture Crohn's disease Erosive gastritis History of CVA with residual deficit Hyperlipidemia Iliac artery aneurysm Iron deficiency anemia Stroke Family History Family History Sibling Family history of malignant neoplasm Mother Patient's mother is Social History Social History Smoking packs per day: 0.5 Smoking cigarettes per day: 10.0 Years smoked: 40 Smoking pack-years: 20.00 Smoking status: Current every day smoker Tobacco type: cigarettes Smoking end date: 09/20/22 Alcohol intake: never Alcohol use details: Seldom Substance use: never Substance use type: does not use Do You Feel Safe in your Home?: Yes Lack of Transportation: No Lack of Food: Never True Current Housing: I Have Housing Concerned About Future Housing: No Difficulty Paying Gas/Electric Bills: No Difficulty Paying for Meds: No Currently Unemployed: No Education: Associate Degree Difficulty w/ Childcare or Family Care: No Living arrangements: with family Spiritual care concerns: No Exam Narrative: APPEARANCE: Well appearing, no pain, no distress, well-nourished. HEAD: normocephalic, atraumatic. EYES: PERRLA/EOMI, conjunctivae clear. NOSE: Normal no drainage EARS:TMS clear with good light reflex. THROAT: Pharynx clear, no exudate. NECK: Supple. No adenopathy, no masses. RESPIRATORY: Airway patent, respirations nonlabored. Clear to auscultation bilaterally, no rales, rhonchi, wheezing. CARDIOVASCULAR: Regular rate and rhythm without murmurs rubs or gallops. ABDOMINAL: Soft, nontender, nondistended, normal bowel sounds MUSCULOSKELETAL: Left leg weakness, gait instability NEURO: Alert. Cranial nerves II through XII intact. Grossly intact SKIN: Warm, dry. Normal Color Course Course Emergency Course: Admission to the hospital Vital Signs Vital signs: Vital Signs Temperature 97.9 F 03/01/24 12:24 Pulse Rate 69 03/01/24 12:24 Respiratory Rate 18 03/01/24 12:24 Blood Pressure 125/60 03/01/24 12:24 Pulse Oximetry 99 03/01/24 12:24 Oxygen Delivery Room Air 03/01/24 12:24 Temperature 97.9 F 03/01/24 12:24 Pulse Rate 60 03/01/24 15:47 Respiratory Rate 16 03/01/24 15:47 Blood Pressure 163/67 H 03/01/24 15:47 Pulse Oximetry 100 03/01/24 15:31 Oxygen Delivery Room Air 03/01/24 12:24 Medical Decision Making [facility] Narrative Med
--- NOTE | 2024-03-01 17:53 | PC.NURSE ---
Patient refuses straight catheter.
--- NOTE | 2024-03-01 19:10 | PM.IMHP ---
H&P: HPI History of Present Illness Date/Time: 03/01/24 21:15 Chief Complaint: Weakness. Narrative: This is a pleasant 83-year-old male with history of cerebrovascular accident and residual left lower extremity weakness with left footdrop, hypertension, hyperlipidemia, gastroesophageal reflux disease, iron deficiency anemia, and Crohn's disease who presented to the emergency department accompanied by his for evaluation of generalized weakness. The patient provides the following history and his provides additional information with the patient's permission. He has fallen out of favor of wearing his left leg brace because ?it tears up my foot.? The past 1 month or so he has been increasingly reliant on his for help around the home and he has not been getting up or moving around much whatsoever. The patient tends to disagree on this fact however. He tells me that his left knee has been hurting but he has been taking ibuprofen with improvement. He has had 5 or 6 falls in the last 2 weeks ?due to my stupidity.? He goes on to say that he thinks he stands too far away from his walker or other things and when he tries to grab onto them he loses balance and falls. Several times he has fallen on his back and hit his head but luckily he has not had any significant injuries or loss of consciousness. thinks his right side is now weak as well but the patient denies that. He denies syncope, near syncope, vertigo, visual changes, facial droop, difficulties speaking and swallowing, paresthesias, and focal weakness (no change in residual left lower extremity weakness from prior stroke). In the ED: He was afebrile on arrival with stable vital signs though blood pressures have been running a bit high in the 150s to 160s systolic. Labs were significant for WBC count of 5.2, hemoglobin 13.2, platelet 128, BUN 24, creatinine 1.00. He tested negative for influenza, RSV, and COVID. Head and neck CTA was negative for aneurysm or significant intracranial arterial stenosis but did note bilateral internal carotid artery stenosis, and age-indeterminate infarct in the right cerebellum, and 16 mm nodule in the left upper lobe suspicious for bronchogenic carcinoma. He is being admitted in this setting for further treatment and evaluation. It should be noted that he had difficulties transferring from the wheelchair to the cot in the ED and required 2 person assist. Review of Systems Review of Systems: 12 systems were reviewed and are negative except for as per HPI. [facility] Past Medical History Medical History (Updated 03/01/24 @ 23:33 by Destini Rose PA-C) Benign essential hypertension Carotid artery stenosis (03/01/24) 72% stenosis of proximal right ICA. 46% stenosis of proximal left ICA. Cerebrovascular accident (05/2013) Left-sided hemiparesis. Chronic diarrhea Colon stricture Crohn's disease Erosive gastritis Hyperlipidemia Iliac artery aneurysm Iron deficiency anemia Surgical History Surgical History (Updated 03/01/24 @ 22:25 by Destini Rose PA-C) History of cataract extraction History of corneal transplant Family History Family History Sibling Family history of malignant neoplasm Mother Patient's mother is Social History Social History (Updated 03/01/24 @ 22:26 by Destini Rose PA-C) Social History: Surrogate medical decision maker: Sylvia Rogel, spouse. Code status: Full code. Smoking packs per day: 0.5 Smoking cigarettes per day: 10.0 Years smoked: 40 Smoking pack-years: 20.00 Smoking status: Former smoker Tobacco type: cigarettes Smoking end date: 09/20/22 Alcohol intake: never Alcohol use details: Seldom Substance use: never Substance use type: does not use Do You Feel Safe in your Home?: Yes Lack of Transportation: No Lack of Food: Never True Current Housing: I Have Housing Concerned About
--- NOTE | 2024-03-01 20:29 | ADMGEN ---
This patient, Tal Heck, was admitted to Medical Room 249-01. Patient/family oriented to hospital policies and general routines including ID bracelet, bed and alarms, visiting hours, pain management, procedures, bathroom and other care routines, personal items, smoking policy, room service/diet, and visiting hours. Information on how to activate the Rapid Response Team has been discussed. Patient/Family are encouraged to report perceived risks to care and to ask questions if they do not understand what they are told or what they should do.
[2024-03-02] VITALS (17 sets, daily range): BP systolic 133–179; BP diastolic 56–79; PULSE 48–72; RESP 15–21; TEMP 36.1–36.6; O2SAT 90–100
[2024-03-02 05:23] LABS: Hemoglobin 12.6 g/dL (14.0-18.0); Immature Platelet Fraction Pct 6.4 % (0.9-11.2); Mean Corpuscular HGB Conc 33.2 g/dl (32-36); Mean Corpuscular Hemoglobin 31.8 pg (26-34); Mean Platelet Volume 11.6 fl (7.4-10.4); Platelet Count Result 114 k/mm3 (150-375); Red Blood Count 3.96 M/mm3 (4.6-6.20); White Blood Count 4.4 K/mm3 (4.5-10.0)
[2024-03-02 05:29] LABS: Anion Gap 5 mmol/L (4-12); Blood Urea Nitrogen 22 mg/dL (9-20); Calcium 9.4 mg/dL (8.4-10.2); Carbon Dioxide 25 mmol/L (22-30); Chloride 110 mmol/L (98-107); Estimated CRCL calculation 47 ml/min; Estimated Glomerular Filt Rate > 60; Glucose 92 mg/dL (65-110); Sodium 140 mmol/L (137-145)
[2024-03-02 05:36] LABS: Prealbumin 16.6 mg/dL (17.6-36.0)
[2024-03-02] MEDS: ACETAMINOPHEN 325 MG TABLET 650 MG PO (06:22)
--- NOTE | 2024-03-02 07:16 | P.PNIM_ITS ---
Progress Note: A&P Assessment and Plan (1) Cerebellar infarct: Code(s): I63.9 - Cerebral infarction, unspecified Status: Acute (2) Left upper lobe pulmonary nodule: Code(s): R91.1 - Solitary pulmonary nodule Status: Acute (3) Generalized weakness: Code(s): R53.1 - Weakness Status: Acute (4) Carotid artery stenosis: Onset Date: 03/01/24 Code(s): I65.29 - Occlusion and stenosis of unspecified carotid artery Status: Acute (5) Chronic anemia: Code(s): D64.9 - Anemia, unspecified Status: Acute (6) Crohn's disease: Qualifiers: Digestive disease complication type: unspecified complication Gastrointestinal tract location: unspecified location Qualified Code(s): K50.919 - Crohn's disease, unspecified, with unspecified complications Code(s): K50.90 - Crohn's disease, unspecified, without complications Status: Chronic Plan CVA * Neurology consulted * Neuro check q.4 hour for the 1st 24 hours. * site monitor and telemetry continuously. * Blood pressure management. -Keep the systolic blood pressure more than 200 or diastolic more than 110. Then lower blood pressure by 15% within the 1st 24 hours. * Echo with bubble study * MRI of the brain without contrast shows chronic infarct * CT scan: aneurysm or significant intracranial arterial stenosis but did note bilateral internal carotid artery stenosis, and age-indeterminate infarct in the right cerebellum * PT/OT eval and treat. * Check for LDL and hemoglobin A1c. * Add statins 40 mg q.day, aspirin 81 mg g q.day/Plavix Stenosis of the carotid artery * 72% RT internal * 46% LT internal * continue statin * ASA * lipid panel pending * will need follow-up O/P with vascular surgeon HTN * Mildly hypertensive POA * resumed patient Lisinopril LLL nodule * Will need repeat scan 3 months/PET scan/biopsy O/P * MRI spine for possible cause of unsteady gait and dragging LT knee Pain * XR no acute issues * PT/OT * Ibuprofen HX Iron deficiency anemia: Resumed Ferrous Sulfate HX HLD: Resumed statin HX Chronh's: Stable resumed balsalazide Code status: Full code per patient DVT prophylaxis: SCD's Stress ulcer prophylaxis: Protonix 40 daily PT/OT notes: PT/OT Pending Disposition: Patient admitted to medical unit for further evaluation and treatment of worsening generalized weakness specifically the RT side PT/OT pending as well as MRI brain, spine and echocardiogram. Patient will likely need placement to rehab or jail facility at discharge. Time Spent With Patient Time with patient: 15 - 25 minutes Subjective Date/time seen: 03/02/24 07:16 Interval history: Chief Complaint: Weakness. Narrative: This is a pleasant 83-year-old male with history of cerebrovascular accident and residual left lower extremity weakness with left footdrop, hypertension, hyperlipidemia, gastroesophageal reflux disease, iron deficiency anemia, and Crohn's disease who presented to the emergency department accompanied by his for evaluation of generalized weakness. The patient provides the following history and his provides additional information with the patient's permission. He has fallen out of favor of wearing his left leg brace because ?it tears up my foot.? The past 1 month or so he has been increasingly reliant on his for help around the home and he has not been getting up or moving around
--- NOTE | 2024-03-02 07:16 | PM.IMPN ---
Progress Note: A&P Assessment and Plan (1) Cerebellar infarct: Code(s): I63.9 - Cerebral infarction, unspecified Status: Acute (2) Left upper lobe pulmonary nodule: Code(s): R91.1 - Solitary pulmonary nodule Status: Acute (3) Generalized weakness: Code(s): R53.1 - Weakness Status: Acute (4) Carotid artery stenosis: Onset Date: 03/01/24 Code(s): I65.29 - Occlusion and stenosis of unspecified carotid artery Status: Acute (5) Chronic anemia: Code(s): D64.9 - Anemia, unspecified Status: Acute (6) Crohn's disease: Qualifiers: Digestive disease complication type: unspecified complication Gastrointestinal tract location: unspecified location Qualified Code(s): K50.919 - Crohn's disease, unspecified, with unspecified complications Code(s): K50.90 - Crohn's disease, unspecified, without complications Status: Chronic Plan CVA Neurology consulted Neuro check q.4 hour for the 1st 24 hours. media monitor and telemetry continuously. Blood pressure management. -Keep the systolic blood pressure more than 200 or diastolic more than 110. Then lower blood pressure by 15% within the 1st 24 hours. Echo with bubble study MRI of the brain without contrast shows chronic infarct CT scan: aneurysm or significant intracranial arterial stenosis but did note bilateral internal carotid artery stenosis, and age-indeterminate infarct in the right cerebellum PT/OT eval and treat. Check for LDL and hemoglobin A1c. Add statins 40 mg q.day, aspirin 81 mg g q.day/Plavix Stenosis of the carotid artery 72% RT internal 46% LT internal continue statin ASA lipid panel pending will need follow-up O/P with vascular surgeon HTN Mildly hypertensive POA resumed patient Lisinopril LLL nodule Will need repeat scan 3 months/PET scan/biopsy O/P MRI spine for possible cause of unsteady gait and dragging LT knee Pain XR no acute issues PT/OT Ibuprofen HX Iron deficiency anemia: Resumed Ferrous Sulfate HX HLD: Resumed statin HX Chronh's: Stable resumed balsalazide Code status: Full code per patient DVT prophylaxis: SCD's Stress ulcer prophylaxis: Protonix 40 daily PT/OT notes: PT/OT Pending Disposition: Patient admitted to medical unit for further evaluation and treatment of worsening generalized weakness specifically the RT side PT/OT pending as well as MRI brain, spine and echocardiogram. Patient will likely need placement to rehab or detention facility at discharge. Time Spent With Patient Time with patient: 15 - 25 minutes Subjective Date/time seen: 03/02/24 07:16 Interval history: Chief Complaint: Weakness. Narrative: This is a pleasant 83-year-old male with history of cerebrovascular accident and residual left lower extremity weakness with left footdrop, hypertension, hyperlipidemia, gastroesophageal reflux disease, iron deficiency anemia, and Crohn's disease who presented to the emergency department accompanied by his for evaluation of generalized weakness. The patient provides the following history and his provides additional information with the patient's permission. He has fallen out of favor of wearing his left leg brace because ?it tears up my foot.? The past 1 month or so he has been increasingly reliant on his for help around the home and he has not been getting up or moving around much whatsoever. The patient tends to disagree on this fact however. He tells me that his left knee has been hurting but he has been taking ibuprofen with improvement. He has had 5 or 6 falls in the last 2 weeks ?due to my stupidity.? He goes on to say that he thinks he stands too far away from his walker or other things and when he tries to grab onto them he loses balance and falls. Several times he has fallen on his back and hit his head but luckily he has not had any significant inj
[2024-03-02 08:25] LABS: Cholesterol 142 mg/dL (0-200); HDL Direct 58 mg/dL; Triglycerides 64 mg/dL (<150)
[2024-03-02 08:36] LABS: LDL Cholesterol Direct 63 mg/dL
[2024-03-02] MEDS: ATORVASTATIN 40 MG TABLET PO (08:36)
[2024-03-02] MEDS: lisinopriL 20 MG TABLET 40 MG PO ×2 (08:36→18:36)
[2024-03-02] MEDS: PANTOPRAZOLE 40 MG TABLET PO (08:36)
[2024-03-02] MEDS: ASPIRIN 81 MG ENTERIC TABLET PO (08:37)
[2024-03-02] MEDS: CHOLECALCIFEROL 1,000 UNITS TABLET 1000 UNITS PO (08:37)
[2024-03-02] MEDS: FERROUS SULFATE 325 MG TABLET DR PO (08:37)
[2024-03-02] MEDS: CLOPIDOGREL BISULFATE 75 MG TABLET PO (08:37)
[2024-03-02] MEDS: PERFLUTREN LIPID MICROSPHERES 1.5 ML VIAL DILUTED TO 10 ML TOTAL VOLUME IV PUSH (09:30)
[2024-03-02 11:24] LABS: Hemoglobin A1C 5.6 % (<5.7)
--- NOTE | 2024-03-02 12:00 | IVDEFINITY ---
Prior to administration of IV Definity the patient was educated on the risks and benefits of the imaging enhancing agent including potential adverse side effects. The patient verbalized understanding. Allergies were verified. No exclusion criteria were identified and at least one of the following inclusion criteria were met: 1) physician request, 2) patient technically difficult to image (per the [place] [employer] guidelines of two or more segments not discernable within the apical view), or 3) questionable left ventricular function. ?
[2024-03-02] MEDS: HYDROcodone/acetaminophen (*CRX) 5-325 MG TABLET 1 TAB PO (12:17)
--- NOTE | 2024-03-02 12:29 | WPDNEURCNPN ---
Assessment and Plan Assessment and plan (1) Cerebellar infarct: Code(s): I63.9 - Cerebral infarction, unspecified Status: Acute (2) Carotid artery stenosis: Onset Date: 03/01/24 Code(s): I65.29 - Occlusion and stenosis of unspecified carotid artery Status: Acute (3) Left upper lobe pulmonary nodule: Code(s): R91.1 - Solitary pulmonary nodule Status: Acute (4) Generalized weakness: Code(s): R53.1 - Weakness Status: Acute (5) Difficulty walking: Code(s): R26.2 - Difficulty in walking, not elsewhere classified Status: Acute (6) AAA (abdominal aortic aneurysm): Code(s): I71.40 - Abdominal aortic aneurysm, without rupture, unspecified Status: Acute (7) Chronic diarrhea: Code(s): K52.9 - Noninfective gastroenteritis and colitis, unspecified Status: Acute Plan 1 72% stenosis of the proximal right internal carotid artery 2 60mm nodule in left upper lung suspicious for the carcinoma 3. Documented right cerebellar focal infarct 4. Status post old stroke in May of 2013 the resultant left-sided weakness 5. GI difficulty with Crohn's erosive gastritis and chronic diarrhea 6. I iliac artery aneurysm 7. Gait dysfunction. Considering the gait dysfunction finding of the pulmonary abnormalities MRI of the spine would be recommended to rule out the possibility of spinal cord involvement. His continuing with the atorvastatin, cholecalciferol, lisinopril, as such we also need the echocardiogram to rule out the possibility additional possibility of embolic stroke. Considering 72% stenosis of proximal right internal carotid artery subsequent to the present evaluation can be referred to the vascular surgeon for the 2nd opinion. Consult date: 03/02/24 HPI: Tal Heck is a 83 year old maleAdmitted to the hospital through the emergency room for the complaints of generalized increasing weakness in addition to the history of longstanding lower extremity weakness secondary to previous cerebrovascular accident reportedly as per the ex- since January 24 patient has been experiencing increasing difficulties in ambulation he lives at home by himself and has been able to ambulate around the house was since 25 of January has had decreased ability to ambulate and increasing difficulties in caring for himself in the emergency room he was noted to have excessive difficulties transferring to the wheelchair to the cot. his home medications included only coli calciferol, no known allergies, history of ongoing hypertension, Crohn's disease, erosive gastritis, history of cerebrovascular accident with residual deficit on the left side and iliac artery aneurysm. Is currently everyday smoker with ear smoked 40 smoking pack years 20 but no alcohol intake, in the emergency room he was noted to have left lower extremity weakness with gait dysfunction, vital signs were normal CBC with platelet count of 128, negative screening for influenzA , B, RSV and SARS, negative chest x-ray head and neck CTA with 16mm nodule in the left lung upper lobe raising the possibility of primary bronchogenic carcinoma, right cerebellar infarct, 72% stenosis of the proximal right internal carotid artery, and 46% stenosis of proximal left internal carotid artery, CT of the chest documenting 14mm spiculated left upper lobe nodule again suspicious for the neoplastic disease in addition to small pericardial effusion. As per the review of Dr. Suleiman velazco nodes patient has been noted to her left footdrop he has had 5 or 6 falls in the last 2 weeks. Review of Systems Review of Systems: All systems reviewed & are unremarkable except as noted in HPI and below PMFSH Past Medical History Medical History Benign essential hypertension Carotid artery stenosis (03/01/24) 72% stenosis of proximal right ICA. 46% stenosis of proximal left ICA. Cerebrovascular accident (
--- NOTE | 2024-03-02 14:01 | PHAR ---
The patient's home med of Balsalazide 750 mg capsule has been verified.
[2024-03-02 14:13] LABS: Alanine Aminotransferase 12 U/L (6-50); Albumin Level 4.1 g/dL (3.5-5.1); Alkaline Phosphatase 57 U/L (38-126); Anion Gap 5 mmol/L (4-12); Aspartate Amino Transferase 21 U/L (17-59); Bilirubin,Total 0.5 mg/dL (0.2-1.3); Blood Urea Nitrogen 21 mg/dL (9-20); Calcium 9.7 mg/dL (8.4-10.2); Carbon Dioxide 28 mmol/L (22-30); Chloride 107 mmol/L (98-107); Estimated CRCL calculation 39 ml/min; Estimated Glomerular Filt Rate 58; Glucose 111 mg/dL (65-110); Potassium 4.1 mmol/L (3.4-5.0); Sodium 140 mmol/L (137-145)
--- NOTE | 2024-03-02 14:29 | PCCCNOTE ---
On 03/02/24, the student, Aaliyah Middleton, provided care and completed [facility] documentation on this patient. I have reviewed the student's documentation and agree with the findings.
--- NOTE | 2024-03-02 23:38 | ECHO_ITS ---
Patient Info Name: Tal Heck Age: 83 years : 1940 Gender: Male Ht: 69 in Wt: 135 lbs BSA: 1.72 m2 HR: 63 bpm BP: 172 / 65 mmHg Heart Rhythm: Sinus Rhythm Technical Quality: Fair Exam Date: 03/02/2024 9:05 AM Exam Location: Echo Lab Patient Status: Outpatient Admit Date: 03/01/2024 Staff Ordering Physician: Destini Rose PA-C Television Installer: Jyoti Shi RDCS Attending Provider: Harry Geller MD Referring Physician: Milton GUEVARA; Exam Type: CA echo dop bubble study w con Study Info Indications - CVA, HTN Complete two-dimentional, color flow and Doppler transthoracic echocardiogram is performed with agitated saline and with contrast to opacify the left ventricle and to improve the delineation of the left ventricle endocardial borders. Contrast/Agitated Saline Contrast/Ag. Saline: Definity Amount: 3.00 ml Summary 1. Left ventricular chamber dimension is normal. 2. Left ventricular systolic function is normal, estimated at 60-65%. 3. The left ventricular diastolic function is grade I diastolic dysfunction. 4. Right ventricular systolic function is normal. 5. Suspected patent foramen ovale visualized by agitated saline imaging with a mild right to left shunt. 6. No significant valvular disease. Left Ventricle Left ventricular chamber dimension is normal. Left ventricular systolic function is normal, estimated at 60-65%. There is no increased left ventricular wall thickness. The left ventricular diastolic function is grade I diastolic dysfunction. Right Ventricle Right ventricular chamber dimension is normal. Right ventricular systolic function is normal. Left Atria Left atrial chamber dimension is normal. Right Atria Right atrial chamber dimension is normal. Atrial Septum Suspected patent foramen ovale visualized by agitated saline imaging with a mild right to left shunt. Aortic Valve The aortic valve is not well visualized. There is no aortic valve stenosis. There is no aortic valve regurgitation. Pulmonic Valve The pulmonic valve is not well visualized. Mitral Valve There is trace mitral valve regurgitation. The mitral valve annulus is mildly calcified. Tricuspid Valve There is trace tricuspid valve regurgitation. Pericardium/Pleural There is no pericardial effusion. Inferior Vena Cava Inferior vena cava is not well visualized. Aorta The aortic root size at the sinus of Valsalva is normal. Left Ventricular Outflow Tract Name Value Normal LVOT 2D LVOT Diameter 2.0 cm LVOT Doppler LVOT Peak Gradient 2 mmHg LVOT Mean Gradient 1 mmHg LVOT VTI 24 cm LVOT VTI/AV VTI Ratio 0.9 LVOT Stroke Volume 75 ml LVOT CO 3.7 l/min LVOT CI 2.1 l/min/m2 Pulmonic Valve Name Value Normal RVOT Doppler
[2024-03-03] VITALS (14 sets, daily range): BP systolic 135–171; BP diastolic 61–83; PULSE 52–83; RESP 16–20; TEMP 36.3–37; O2SAT 97–100
[2024-03-03 05:08] LABS: Hematocrit 38.8 % (42.0-52.0); Hemoglobin 13.1 g/dL (14.0-18.0); Immature Platelet Fraction Pct 7.3 % (0.9-11.2); Mean Corpuscular HGB Conc 33.8 g/dl (32-36); Mean Corpuscular Volume 94.6 fl (80-100); Mean Platelet Volume 11.9 fl (7.4-10.4); Platelet Count Result 114 k/mm3 (150-375); White Blood Count 5.2 K/mm3 (4.5-10.0)
[2024-03-03 05:19] LABS: Alanine Aminotransferase 9 U/L (6-50); Albumin Level 3.5 g/dL (3.5-5.1); Alkaline Phosphatase 56 U/L (38-126); Anion Gap 1 mmol/L (4-12); Aspartate Amino Transferase 21 U/L (17-59); Bilirubin,Total 0.5 mg/dL (0.2-1.3); Blood Urea Nitrogen 23 mg/dL (9-20); Calcium 9.2 mg/dL (8.4-10.2); Carbon Dioxide 26 mmol/L (22-30); Chloride 107 mmol/L (98-107); Estimated CRCL calculation 43 ml/min; Estimated Glomerular Filt Rate > 60; Glucose 87 mg/dL (65-110); Potassium 3.8 mmol/L (3.4-5.0); Sodium 134 mmol/L (137-145)
[2024-03-03] MEDS: ATORVASTATIN 40 MG TABLET PO (08:44)
[2024-03-03] MEDS: lisinopriL 20 MG TABLET 40 MG PO ×2 (08:44→17:36)
[2024-03-03] MEDS: PANTOPRAZOLE 40 MG TABLET PO (08:44)
[2024-03-03] MEDS: CHOLECALCIFEROL 1,000 UNITS TABLET 1000 UNITS PO (08:44)
[2024-03-03] MEDS: FERROUS SULFATE 325 MG TABLET DR PO (08:44)
--- NOTE | 2024-03-03 10:58 | WPDNEUROPN ---
Subjective Date/time seen: 03/03/24 10:58 Interval history: Follow-up of Mr. Tal Lockhart with ongoing findings of 72% stenosis of the proximal right internal carotid artery, 6cm nodule in the left upper lobe suspicious for the carcinoma, right cerebellar infarct, and history of old stroke in May of 2013 with resultant left hemiparesis, GI difficulties with underlying Crohn's disease, and I iliac artery aneurysm, evaluation during this hospitalization documented particularly negative MRI of thoracic spine except mild degenerative changes, MRI of cervical spine revealing severe spondylotic changes including cord compression at C3-4 and C5 and C6, and a brain MRI with the focal infarct in the right cerebellum, Additionally echocardiogram raising the possibility of patent foramina ovale also with mild right to left shunt , and CTA with 72% stenosis of the proximal right internal carotid artery. Considering multiple problems he will need to be seen by the 1. Vascular surgeon 2. Neurosurgeon and 3. business process specialist. Can always obtain the pulmonary consultation while he is here but for other to consultation he will need to go to tertiary care as our neurosurgeons here do not deal with the cervical problem . Objective Data Vital Signs Vital Signs: Vital Signs - 24 hr 03/02/24 11:18 03/02/24 12:25 03/02/24 15:15 Temperature 36.1 C L 36.4 C L Pulse Rate 65 51 L Respiratory Rate 16 15 Blood Pressure 133/66 179/74 H Pulse Oximetry 90 100 Oxygen Delivery Room Air 03/02/24 12:00 03/02/24 16:00 03/02/24 18:36 Temperature Pulse Rate 72 51 L 57 L Respiratory Rate Blood Pressure 167/78 H Pulse Oximetry Oxygen Delivery 03/02/24 20:00 03/02/24 22:35 03/02/24 22:38 Temperature 36.6 C 36.6 C Pulse Rate 53 L 53 L Respiratory Rate 20 20 Blood Pressure 141/56 H 141/56 H Pulse Oximetry 99 99 Oxygen Delivery Room Air 03/02/24 22:39 03/02/24 22:40 03/02/24 21:52 Temperature 36.1 C L 36.1 C L Pulse Rate 53 L 55 L Respiratory Rate 21 H 20 Blood Pressure 142/66 H 149/79 H Pulse Oximetry 100 99 99 Oxygen Delivery Room Air 03/02/24 20:00 03/03/24 04:00 03/03/24 06:00 Temperature 36.3 C L Pulse Rate 53 L 52 L 57 L Respiratory Rate 20 Blood Pressure 142/67 H Pulse Oximetry 98 Oxygen Delivery 03/03/24 08:40 Temperature Pulse Rate Respiratory Rate Blood Pressure Pulse Oximetry Oxygen Delivery Room Air Intake/Output Intake/Output: Intake & Output 02/29/24 03/01/24 03/02/24 03/03/24 23:59 23:59 23:59 23:59 Intake Total 1250 550 Output Total 890 1100 Balance 360 -550 Meds/Results Medications: Active Medications Generic Name Dose Route Start Last Admin Trade Name Freq PRN Reason Stop Dose Admin Aspirin 81 mg 03/02/24 09:00 03/03/24 08:48 Aspirin 81 Mg Enteric Tablet PO Not Given QAM [facility] Atorvastatin Calcium 40 mg 03/02/24 09:00 03/03/24 08:44 Atorvastatin 40 Mg Tablet PO 40 mg DAILY ARMAAN Administration Ferrous Sulfate 325 mg 03/02/24 09:00 03/03/24 08:44 Ferrous Sulfate [address] PO 325 mg DAILY [facility] Administration Ibuprofen 600 mg 03/02/24 13:07 Ibuprofen 600 Mg Tablet PO Q6H PRN Pain Rated 1-3 Lisinopril 40 mg 03/02/24 09:00 03/03/24 08:44 Lisinopril 20 Mg Tablet PO 40 mg BID [facility] Administration Miscellaneous Information 1 each 03/02/24 00:01 Balsalazide 750 Mg Capsule Is Nonformulary. Send Home Supply To Pharmacy For Verification XX 04/01/24 00:00 CLARIFY ARMAAN Nonform Balsalazide 750 mg 03/02/24 13:00 03/03/24 08:45 750 Mg Capsule PO 04/01/24 12:59 750 mg TID ARMAAN Administration Pantoprazole Sodium 40 mg 03/02/24 09:00 03/03/24 08:44 Pantoprazole 40 Mg Tablet PO 40 mg DAILY ARMAAN Administration Vitamin D 1,000 units 03/02/24 09:00 03/03/24 08:44 Cholecalciferol 1,000 Units Tablet PO 1,000 units DAILY ARMAAN Administration Rad
[2024-03-03] MEDS: IBUPROFEN 600 MG TABLET PO (12:39)
--- NOTE | 2024-03-03 12:47 | P.PNIM_ITS ---
Progress Note: A&P Assessment and Plan (1) Generalized weakness: Code(s): R53.1 - Weakness Status: Acute Assessment and Plan: * MRI spine for possible cause of unsteady gait and dragging * MRI of the cervical spine showing severe degenerative spondylosis including cord compression at C3-C4 and C5-C6, and multilevel neural foraminal narrowing and multilevel canal stenosis. * MRI of thoracic spine with mild degenerative changes * Neurosurgery consulted. * Cord compression could be cause of patient's extremity weakness. * PT and OT continue to work with the patient. * Patient will likely need placement at discharge. (2) Carotid artery stenosis: Onset Date: 03/01/24 Code(s): I65.29 - Occlusion and stenosis of unspecified carotid artery Status: Acute Assessment and Plan: * 72% RT internal * 46% LT internal * continue statin * LDL <70 * Patient refuses ASA therapy due to hx of GI bleed 10 years ago. * will need follow-up O/P with vascular surgeon (3) Left upper lobe pulmonary nodule: Code(s): R91.1 - Solitary pulmonary nodule Status: Acute Assessment and Plan: * Will need repeat scan 3 months/PET scan/biopsy O/P (4) Cerebellar infarct: Code(s): I63.9 - Cerebral infarction, unspecified Status: Ruled-out Assessment and Plan: * Neurology consulted * Neuro check q.4 hour for the 1st 24 hours. * telemetry monitor and telemetry continuously. * Echo with bubble study with suspected PFO with mild qjjno-bp-jcyw shunt, grade 1 diastolic dysfunction, EF of 60-65% * CT scan: aneurysm or significant intracranial arterial stenosis but did note bilateral internal carotid artery stenosis, and age-indeterminate infarct in the right cerebellum. * MRI of the brain without contrast shows chronic infarct * PT/OT eval and treat. * LDL 63; continue home Atorvastatin * Hemoglobin A1c 5.6. * Aspirin 81 mg daily and Plavix 75 mg daily No evidence of CVA on MRI (5) Chronic anemia: Code(s): D64.9 - Anemia, unspecified Status: Acute Assessment and Plan: Resumed Ferrous Sulfate (6) Crohn's disease: Qualifiers: Digestive disease complication type: unspecified complication Gastrointestinal tract location: unspecified location Qualified Code(s): K50.919 - Crohn's disease, unspecified, with unspecified complications Code(s): K50.90 - Crohn's disease, unspecified, without complications Status: Chronic Assessment and Plan: Stable. Subjective Date/time seen: 03/03/24 12:47 Interval history: Patient continues to left sided weakness with her majority of it in the left foot/leg. Patient's MRI was negative for an acute stroke. There is concern for possible spinal a abnormalities. cervical MRI performed showing cord compression and central canal stenosis. Neurosurgery was consulted. Patient stated that he is not going to be taking any aspirin due to his history of GI bleed. I explained due risks of not taking this therapy and he understood. Patient will need referral to vascular surgeon at discharge. will wait for further recommendations from Neurosurgery. Exam Narrative: GENERAL: Comfortable, no acute distress HENMT: moist mucous membranes EYES: EOM intact b/l NECK: no lymphadenopathy RESPIRATORY: clear to auscultation, no increased respiratory effort CARDIO: Regular rate and rhythm
--- NOTE | 2024-03-03 12:47 | PM.IMPN ---
Progress Note: A&P Assessment and Plan (1) Generalized weakness: Code(s): R53.1 - Weakness Status: Acute Assessment and Plan: MRI spine for possible cause of unsteady gait and dragging MRI of the cervical spine showing severe degenerative spondylosis including cord compression at C3-C4 and C5-C6, and multilevel neural foraminal narrowing and multilevel canal stenosis. MRI of thoracic spine with mild degenerative changes Neurosurgery consulted. Cord compression could be cause of patient's extremity weakness. PT and OT continue to work with the patient. Patient will likely need placement at discharge. (2) Carotid artery stenosis: Onset Date: 03/01/24 Code(s): I65.29 - Occlusion and stenosis of unspecified carotid artery Status: Acute Assessment and Plan: 72% RT internal 46% LT internal continue statin LDL <70 Patient refuses ASA therapy due to hx of GI bleed 10 years ago. will need follow-up O/P with vascular surgeon (3) Left upper lobe pulmonary nodule: Code(s): R91.1 - Solitary pulmonary nodule Status: Acute Assessment and Plan: Will need repeat scan 3 months/PET scan/biopsy O/P (4) Cerebellar infarct: Code(s): I63.9 - Cerebral infarction, unspecified Status: Ruled-out Assessment and Plan: Neurology consulted Neuro check q.4 hour for the 1st 24 hours. pvc monitor and telemetry continuously. Echo with bubble study with suspected PFO with mild oduxw-tk-mvbi shunt, grade 1 diastolic dysfunction, EF of 60-65% CT scan: aneurysm or significant intracranial arterial stenosis but did note bilateral internal carotid artery stenosis, and age-indeterminate infarct in the right cerebellum. MRI of the brain without contrast shows chronic infarct PT/OT eval and treat. LDL 63; continue home Atorvastatin Hemoglobin A1c 5.6. Aspirin 81 mg daily and Plavix 75 mg daily No evidence of CVA on MRI (5) Chronic anemia: Code(s): D64.9 - Anemia, unspecified Status: Acute Assessment and Plan: Resumed Ferrous Sulfate (6) Crohn's disease: Qualifiers: Digestive disease complication type: unspecified complication Gastrointestinal tract location: unspecified location Qualified Code(s): K50.919 - Crohn's disease, unspecified, with unspecified complications Code(s): K50.90 - Crohn's disease, unspecified, without complications Status: Chronic Assessment and Plan: Stable. Subjective Date/time seen: 03/03/24 12:47 Interval history: Patient continues to left sided weakness with her majority of it in the left foot/leg. Patient's MRI was negative for an acute stroke. There is concern for possible spinal a abnormalities. cervical MRI performed showing cord compression and central canal stenosis. Neurosurgery was consulted. Patient stated that he is not going to be taking any aspirin due to his history of GI bleed. I explained due risks of not taking this therapy and he understood. Patient will need referral to vascular surgeon at discharge. will wait for further recommendations from Neurosurgery. Exam Narrative: GENERAL: Comfortable, no acute distress HENMT: moist mucous membranes EYES: EOM intact b/l NECK: no lymphadenopathy RESPIRATORY: clear to auscultation, no increased respiratory effort CARDIO: Regular rate and rhythm GI: soft, nontender, bowel sounds present SKIN/EXTREMITIES: no rashes, no edema, no redness or tenderness NEURO:Answers questions appropriately, A&O x4 , left foot weakness 3/5 and abnormal light touch sensation Objective Data Vital Signs Vital Signs: Vital Signs - 24 hr 03/02/24 15:15 03/02/24 16:00 03/02/24 18:36 Temperature 97.5 F L Pulse Rate 51 L 51 L 57 L Respiratory Rate 15 Blood Pressure 179/74 H 167/78 H Pulse Oximetry 100 Oxygen Delivery 03/02/24 20:00 03/02/24
--- NOTE | 2024-03-03 14:36 | WPDNEURCNPN ---
Assessment and Plan Assessment and plan (1) Difficulty walking: Code(s): R26.2 - Difficulty in walking, not elsewhere classified Status: Acute (2) Cervical stenosis of spinal canal: Code(s): M48.02 - Spinal stenosis, cervical region Status: Acute Plan The patient is an 83yoM with prior CVA history w/ chronic LLE who presents with worsening ambulation difficulty and frequent falls since 01/26/24. The patient's ex- gives most of the history and believes he is not using his right LE as well as his baseline. The patient denies any radicular leg pains and no new arm symptoms. MRI of Cervical spine shows degenerative spondylosis with moderate central stenosis a C5-6 with possible cord compression but no abnormal T2 signal changes within the spinal cord at this level. On exam he has chronic weakness in his LLE - mainly in the quad/AT/EHL/ and milder in gastroc. No detectable weakness in his RLE and right hand intrinsics are 4/5. He has clonus in his Right foot but no Martin's sign in shereen hands. It is difficult to say if his walking difficulties are coming from his cervical spine stenosis seen on the MRI. We would favor continued PT/OT evals and likely Acute Rehab placement to see if he gets any improvement. It would also be reasonable to have him follow-up with my surgeons in clinic for further discussions regarding possible surgical interventions - this is only if he's cleared to have surgery given findings of PFO and carotid stenosis bilaterally. I gave our information to his ex- and leave discharge f/u info in dc tab. Also agree with Vascular and Pulmonology input regarding new findings. Consult date: 03/03/24 Reason for consult: Cervical stenosis HPI: Tal Heck is a right handed 83 year old male with PMHx for having prior CVA's involving the left caudate acutely on an MRI from 09/2022, with chronic changes in the bilateral basal ganglia, right posterior limb internal capsule, right cerebellum, left occipital lobe, and posterior frontal lobe. His ex- gives most of the history and states after his first stroke in 2012, this left him with significant left side weakness, leg worse than arm. She brought him to the ED due to the patient having frequent falls since 01/26/24. She states the patient has had increased difficulty walking and using his good right leg . The patient lives by himself and his ex- has been staying with him because she does not feel that his is safe on his own. We were consulted after MRI of the cervical spine reveals he has multilevel cervical stenosis. On this admission the patient was also found to have a left upper lobe lung mass worrisome for carcinoma, echocardiogram showing a possible PFO with mild whvxn-jp-ludo shunt, right ICA stenosis at 72% and left ICA stenosis at 46%. He denies being on any blood thinners, and his ex- believes he was taken off after a bought of colitis with intestinal bleeding. The patient denies any recent increase in neck pain and no new arm symptoms. He also denies any bowel or bladder incontinence but has had episodes on not making it the bathroom due to his current mobility issues. [facility] Past Medical History Medical History Benign essential hypertension Carotid artery stenosis (03/01/24) 72% stenosis of proximal right ICA. 46% stenosis of proximal left ICA. Cerebrovascular accident (05/2013) Left-sided hemiparesis. Chronic diarrhea Colon stricture Crohn's disease Erosive gastritis Hyperlipidemia Iliac artery aneurysm Iron deficiency anemia Surgical History Surgical History History of cataract extraction History of corneal transplant Family History Family History Sibling Family history of malignant neoplasm Mother Patient's mother is
[2024-03-04] VITALS (12 sets, daily range): BP systolic 159–180; BP diastolic 64–72; PULSE 50–66; RESP 16–20; TEMP 36.6–36.8; O2SAT 97–98
[2024-03-04 06:27] LABS: Hematocrit 39.7 % (42.0-52.0); Hemoglobin 13.1 g/dL (14.0-18.0); Mean Corpuscular Hemoglobin 31.7 pg (26-34); Mean Corpuscular Volume 96.1 fl (80-100); Mean Platelet Volume 12.1 fl (7.4-10.4); Platelet Count Result 113 k/mm3 (150-375); Red Blood Count 4.13 M/mm3 (4.6-6.20); White Blood Count 4.4 K/mm3 (4.5-10.0)
[2024-03-04 06:44] LABS: Alanine Aminotransferase 10 U/L (6-50); Albumin Level 3.5 g/dL (3.5-5.1); Alkaline Phosphatase 56 U/L (38-126); Anion Gap 4 mmol/L (4-12); Aspartate Amino Transferase 22 U/L (17-59); Bilirubin,Total 0.4 mg/dL (0.2-1.3); Blood Urea Nitrogen 24 mg/dL (9-20); Calcium 9.4 mg/dL (8.4-10.2); Carbon Dioxide 28 mmol/L (22-30); Chloride 108 mmol/L (98-107); Estimated CRCL calculation 38 ml/min; Estimated Glomerular Filt Rate 58; Glucose 91 mg/dL (65-110); Potassium 4.1 mmol/L (3.4-5.0); Sodium 140 mmol/L (137-145)
[2024-03-04] MEDS: FERROUS SULFATE 325 MG TABLET DR PO (09:22)
[2024-03-04] MEDS: ATORVASTATIN 40 MG TABLET PO (09:22)
[2024-03-04] MEDS: CHOLECALCIFEROL 1,000 UNITS TABLET 1000 UNITS PO (09:22)
[2024-03-04] MEDS: lisinopriL 20 MG TABLET 40 MG PO ×2 (09:22→17:09)
[2024-03-04] MEDS: PANTOPRAZOLE 40 MG TABLET PO (09:22)
[2024-03-04] MEDS: IBUPROFEN 600 MG TABLET PO ×2 (09:27→17:09)
--- NOTE | 2024-03-04 10:58 | PC.NURSE ---
On 03/04/24, the student, [Jt English], provided care and completed [facility] documentation on this patient. I have reviewed the student's documentation and agree with the findings.
--- NOTE | 2024-03-04 14:23 | PC.NURSE ---
On 03/04/24, the student, [Apolonia Trent], provided care and completed [facility] documentation on this patient. I have reviewed the student's documentation and agree with the findings.
--- NOTE | 2024-03-04 15:06 | P.PNIM_ITS ---
Progress Note: A&P Assessment and Plan (1) Generalized weakness: Code(s): R53.1 - Weakness Status: Acute Assessment and Plan: * MRI spine for possible cause of unsteady gait and dragging * MRI of the cervical spine showing severe degenerative spondylosis including cord compression at C3-C4 and C5-C6, and multilevel neural foraminal narrowing and multilevel canal stenosis. * MRI of thoracic spine with mild degenerative changes * Neurosurgery consulted. * Cord compression could be cause of patient's extremity weakness. * PT and OT continue to work with the patient. * Patient will likely need placement at discharge. * Plan for discharge tomorrow. (2) Carotid artery stenosis: Onset Date: 03/01/24 Code(s): I65.29 - Occlusion and stenosis of unspecified carotid artery Status: Acute Assessment and Plan: * 72% RT internal * 46% LT internal * continue statin * LDL <70 * Patient refuses ASA therapy due to hx of GI bleed 10 years ago. * will need follow-up O/P with vascular surgeon (3) Left upper lobe pulmonary nodule: Code(s): R91.1 - Solitary pulmonary nodule Status: Acute Assessment and Plan: * Will need repeat scan 3 months/PET scan/biopsy O/P (4) Cerebellar infarct: Code(s): I63.9 - Cerebral infarction, unspecified Status: Ruled-out Assessment and Plan: * Neurology consulted * Neuro check q.4 hour for the 1st 24 hours. * lunchroom monitor and telemetry continuously. * Echo with bubble study with suspected PFO with mild ifexc-iv-dceb shunt, grade 1 diastolic dysfunction, EF of 60-65% * CT scan: aneurysm or significant intracranial arterial stenosis but did note bilateral internal carotid artery stenosis, and age-indeterminate infarct in the right cerebellum. * MRI of the brain without contrast shows chronic infarct * PT/OT eval and treat. * LDL 63; continue home Atorvastatin * Hemoglobin A1c 5.6. * Aspirin 81 mg daily and Plavix 75 mg daily No evidence of CVA on MRI (5) Chronic anemia: Code(s): D64.9 - Anemia, unspecified Status: Acute Assessment and Plan: Resumed Ferrous Sulfate (6) Crohn's disease: Qualifiers: Digestive disease complication type: unspecified complication Gastrointestinal tract location: unspecified location Qualified Code(s): K50.919 - Crohn's disease, unspecified, with unspecified complications Code(s): K50.90 - Crohn's disease, unspecified, without complications Status: Chronic Assessment and Plan: Stable. Subjective Date/time seen: 03/04/24 15:06 Interval history: patient unable to be placed into SNF until tomorrow. Plan on discharge tomorrow. Exam Narrative: GENERAL: Comfortable, no acute distress HENMT: moist mucous membranes EYES: EOM intact b/l NECK: no lymphadenopathy RESPIRATORY: clear to auscultation, no increased respiratory effort CARDIO: Regular rate and rhythm GI: soft, nontender, bowel sounds present SKIN/EXTREMITIES: no rashes, no edema, no redness or tenderness NEURO:Answers questions appropriately, A&O x4 , left foot weakness 3/5 and abnormal light touch sensation Objective Data Vital Signs Vital Signs: Vital Signs - 24 hr 03/03/24 16:00 03/03/24 22:15 03/03/24 22:19 Temperature 98.4 F 98.
--- NOTE | 2024-03-04 15:06 | PM.IMPN ---
Progress Note: A&P Assessment and Plan (1) Generalized weakness: Code(s): R53.1 - Weakness Status: Acute Assessment and Plan: MRI spine for possible cause of unsteady gait and dragging MRI of the cervical spine showing severe degenerative spondylosis including cord compression at C3-C4 and C5-C6, and multilevel neural foraminal narrowing and multilevel canal stenosis. MRI of thoracic spine with mild degenerative changes Neurosurgery consulted. Cord compression could be cause of patient's extremity weakness. PT and OT continue to work with the patient. Patient will likely need placement at discharge. Plan for discharge tomorrow. (2) Carotid artery stenosis: Onset Date: 03/01/24 Code(s): I65.29 - Occlusion and stenosis of unspecified carotid artery Status: Acute Assessment and Plan: 72% RT internal 46% LT internal continue statin LDL <70 Patient refuses ASA therapy due to hx of GI bleed 10 years ago. will need follow-up O/P with vascular surgeon (3) Left upper lobe pulmonary nodule: Code(s): R91.1 - Solitary pulmonary nodule Status: Acute Assessment and Plan: Will need repeat scan 3 months/PET scan/biopsy O/P (4) Cerebellar infarct: Code(s): I63.9 - Cerebral infarction, unspecified Status: Ruled-out Assessment and Plan: Neurology consulted Neuro check q.4 hour for the 1st 24 hours. 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 Echo with bubble study with suspected PFO with mild cwlwi-mr-yhzl shunt, grade 1 diastolic dysfunction, EF of 60-65% CT scan: aneurysm or significant intracranial arterial stenosis but did note bilateral internal carotid artery stenosis, and age-indeterminate infarct in the right cerebellum. MRI of the brain without contrast shows chronic infarct PT/OT eval and treat. LDL 63; continue home Atorvastatin Hemoglobin A1c 5.6. Aspirin 81 mg daily and Plavix 75 mg daily No evidence of CVA on MRI (5) Chronic anemia: Code(s): D64.9 - Anemia, unspecified Status: Acute Assessment and Plan: Resumed Ferrous Sulfate (6) Crohn's disease: Qualifiers: Digestive disease complication type: unspecified complication Gastrointestinal tract location: unspecified location Qualified Code(s): K50.919 - Crohn's disease, unspecified, with unspecified complications Code(s): K50.90 - Crohn's disease, unspecified, without complications Status: Chronic Assessment and Plan: Stable. Subjective Date/time seen: 03/04/24 15:06 Interval history: patient unable to be placed into SNF until tomorrow. Plan on discharge tomorrow. Exam Narrative: GENERAL: Comfortable, no acute distress HENMT: moist mucous membranes EYES: EOM intact b/l NECK: no lymphadenopathy RESPIRATORY: clear to auscultation, no increased respiratory effort CARDIO: Regular rate and rhythm GI: soft, nontender, bowel sounds present SKIN/EXTREMITIES: no rashes, no edema, no redness or tenderness NEURO:Answers questions appropriately, A&O x4 , left foot weakness 3/5 and abnormal light touch sensation Objective Data Vital Signs Vital Signs: Vital Signs - 24 hr 03/03/24 16:00 03/03/24 22:15 03/03/24 22:19 Temperature 98.4 F 98.4 F Pulse Rate 60 62 62 Respiratory Rate 20 20 Blood Pressure 171/69 H 171/69 H Pulse Oximetry 98 98 Oxygen Delivery 03/03/24 22:41 03/03/24 22:42 03/03/24 20:55 Temperature 98.6 F 98.2 F Pulse Rate 64 65 Respiratory Rate 20 20 Blood Pressure 147/61 H 165/83 H Pulse Oximetry 98 98 Oxygen Delivery Room Air 03/03/24 20:03 03/04/24 00:01 03/04/24 04:03 Temperature Pulse Rate 83 64 60 Respiratory Rate Blood Pressure Pulse Oximetry Oxygen Delivery 03/03/24 22:01 03/04/24 06:00 03/04/24 09:20 Temperature 97.9 F Pulse Rate 63 Respiratory Rate 20 Blo
[2024-03-05] VITALS (9 sets, daily range): BP systolic 102–174; BP diastolic 58–79; PULSE 54–64; RESP 18; TEMP 36.5–36.8; O2SAT 98–100
[2024-03-05 05:11] LABS: Hematocrit 38.5 % (42.0-52.0); Hemoglobin 12.7 g/dL (14.0-18.0); Immature Platelet Fraction Pct 6.6 % (0.9-11.2); Mean Corpuscular Hemoglobin 31.6 pg (26-34); Mean Corpuscular Volume 95.8 fl (80-100); Mean Platelet Volume 11.7 fl (7.4-10.4); Platelet Count Result 107 k/mm3 (150-375); Red Blood Count 4.02 M/mm3 (4.6-6.20); Red Cell Distribution Width 11.8 % (11.5-14.5); White Blood Count 4.1 K/mm3 (4.5-10.0)
[2024-03-05 05:19] LABS: Alanine Aminotransferase 9 U/L (6-50); Albumin Level 3.4 g/dL (3.5-5.1); Alkaline Phosphatase 58 U/L (38-126); Anion Gap 5 mmol/L (4-12); Aspartate Amino Transferase 22 U/L (17-59); Bilirubin,Total 0.4 mg/dL (0.2-1.3); Blood Urea Nitrogen 26 mg/dL (9-20); Calcium 9.5 mg/dL (8.4-10.2); Carbon Dioxide 26 mmol/L (22-30); Chloride 108 mmol/L (98-107); Estimated CRCL calculation 38 ml/min; Estimated Glomerular Filt Rate 58; Glucose 93 mg/dL (65-110); Potassium 3.9 mmol/L (3.4-5.0); Sodium 139 mmol/L (137-145)
[2024-03-05] MEDS: PANTOPRAZOLE 40 MG TABLET PO (08:32)
[2024-03-05] MEDS: lisinopriL 20 MG TABLET 40 MG PO (08:33)
[2024-03-05] MEDS: ATORVASTATIN 40 MG TABLET PO (08:34)
[2024-03-05] MEDS: FERROUS SULFATE 325 MG TABLET DR PO (08:34)
[2024-03-05] MEDS: CHOLECALCIFEROL 1,000 UNITS TABLET 1000 UNITS PO (08:35)
--- NOTE | 2024-03-05 09:06 | PM.DS ---
DS: Admitting Diagnosis Discharge Date 03/05/24 Admitting Diagnosis Left leg weakness. DS: Discharge Diagnosis Discharge Diagnosis (1) Generalized weakness: Code(s): R53.1 - Weakness Status: Acute (2) Carotid artery stenosis: Onset Date: 03/01/24 Code(s): I65.29 - Occlusion and stenosis of unspecified carotid artery Status: Acute (3) Left upper lobe pulmonary nodule: Code(s): R91.1 - Solitary pulmonary nodule Status: Acute (4) Cerebellar infarct: Code(s): I63.9 - Cerebral infarction, unspecified Status: Ruled-out (5) Chronic anemia: Code(s): D64.9 - Anemia, unspecified Status: Acute (6) Crohn's disease: Qualifiers: Digestive disease complication type: unspecified complication Gastrointestinal tract location: unspecified location Qualified Code(s): K50.919 - Crohn's disease, unspecified, with unspecified complications Code(s): K50.90 - Crohn's disease, unspecified, without complications Status: Chronic DS: Summary Hospital Course Hospital Course: This is a pleasant 83-year-old male with history of cerebrovascular accident and residual left lower extremity weakness with left footdrop, hypertension, hyperlipidemia, gastroesophageal reflux disease, iron deficiency anemia, and Crohn's disease who presented to the emergency department accompanied by his for evaluation of generalized weakness.?He has fallen out of favor of wearing his left leg brace because ?it tears up my foot.? The past 1 month or so he has been increasingly reliant on his for help around the home and he has not been getting up or moving around much whatsoever.?Several times he has fallen on his back and hit his head but luckily he has not had any significant injuries or loss of consciousness. thinks his right side is now weak as well but the patient denies that. He denies syncope, near syncope, vertigo, visual changes, facial droop, difficulties speaking and swallowing, paresthesias, and focal weakness. Head and neck CTA was negative for aneurysm or significant intracranial arterial stenosis but did note bilateral internal carotid artery stenosis, and age-indeterminate infarct in the right cerebellum, and 16 mm nodule in the left upper lobe suspicious for bronchogenic carcinoma.?MRI of the brain without contrast shows chronic infarct. Echo with bubble study with suspected PFO with mild kjegp-if-aakm shunt, grade 1 diastolic dysfunction, EF of 60-65% . MRI spine for possible cause of unsteady gait and dragging. MRI of the cervical spine showing severe degenerative spondylosis including cord compression?at C3-C4 and C5-C6, and multilevel neural foraminal narrowing and multilevel canal stenosis. MRI of thoracic spine with mild degenerative changes. Neurosurgery was consulted. Neurosurgery recommending patient continue to plan on SNF and if it does not improved follow-up with him in the office. Patient worked with therapy while inpatient. Patient accepted into SNF. Will discharge on 03/05/2024. Time Spent with Patient Time attestation: Total time spent providing and/or coordinating discharge services: Exam Narrative: GENERAL: Comfortable, no acute distress HENMT: moist mucous membranes EYES: EOM intact b/l NECK: no lymphadenopathy RESPIRATORY: clear to auscultation, no increased respiratory effort CARDIO: Regular rate and rhythm GI: soft, nontender, bowel sounds present SKIN/EXTREMITIES: no rashes, no edema, no redness or tenderness NEURO:Answers questions appropriately, A&O x4 , left foot weakness 4/5 and abnormal light touch sensation DS: Data Data Completed and Pending Labs on day of discharge: Labs from last 24 hours 03/05/24 04:39 WBC 4.1 L RBC 4.02 L Hgb 12.7 L Hct 38.5 L MCV 95.8 MCH 31.6 MCHC 33.0 RDW 11.8 Plt Count 107 L MPV 11.7 H % Immature Plt Fraction 6.6 Sodium 139 Potassium 3.9 Chloride 108 H Carbon Dioxide 26
[2024-03-05] MEDS: IBUPROFEN 600 MG TABLET PO (10:13)
--- NOTE | 2024-03-05 13:49 | PC.NURSE ---
On 03/05/24, the student, [Jt English], provided care and completed [facility] documentation on this patient. I have reviewed the student's documentation and agree with the findings.
--- NOTE | 2024-03-05 14:42 | PC.NURSE ---
On 03/05/24, the student, [Jane Rg], provided care and completed [facility] documentation on this patient. I have reviewed the student's documentation and agree with the findings.
[2024-03-05 14:59] LABS: SARS-CoV-2 RNA PCR Negative (Negative)
== END 2024-03-05 15:36 ==
LOC: ANHED 17:45 → ANH2MED 23:24
PROVIDERS: Internal Medicine Critical Care Medicine; Nurse Practitioner Family; Physician Assistant; Admitting Provider Student in an Organized Health Care Education/Training Program; Emergency Provider Emergency Medicine; PCP Emergency Medicine; Visit Provider Student in an Organized Health Care Education/Training Program
DX: R53.1 Weakness (principal); I65.23 Occlusion and stenosis of bilateral carotid arteries; R91.1 Solitary pulmonary nodule; K50.919 Crohn's disease, unspecified, with unspecified complications; R26.2 Difficulty in walking, not elsewhere classified; I69.354 Hemiplegia and hemiparesis following cerebral infarction affecting left non-dominant side; I72.3 Aneurysm of iliac artery; D50.9 Iron deficiency anemia, unspecified; R62.7 Adult failure to thrive; Z68.20 Body mass index [BMI] 20.0-20.9, adult; M25.562 Pain in left knee; I10 Essential (primary) hypertension; K52.9 Noninfective gastroenteritis and colitis, unspecified; M76.891 Other specified enthesopathies of right lower limb, excluding foot; J43.9 Emphysema, unspecified; K21.9 Gastro-esophageal reflux disease without esophagitis; I11.9 Hypertensive heart disease without heart failure; R94.31 Abnormal electrocardiogram [ECG] [EKG]; E78.5 Hyperlipidemia, unspecified; F17.210 Nicotine dependence, cigarettes, uncomplicated; Z20.822 Contact with and (suspected) exposure to COVID-19; M16.0 Bilateral primary osteoarthritis of hip; I34.81 Nonrheumatic mitral (valve) annulus calcification; M47.812 Spondylosis without myelopathy or radiculopathy, cervical region; M48.02 Spinal stenosis, cervical region; M51.24 Other intervertebral disc displacement, thoracic region; Z79.1 Long term (current) use of non-steroidal anti-inflammatories (NSAID); Z79.899 Other long term (current) drug therapy
CPT/HCPCS: 36415; 70496; 70498; 70553; 71045; 71250; 72141; 72146; 73502; 73562; 80048; 80053; 80061; 83036; 83735; 84134; 84443; 85025; 85027; 85055; 85610; 85730; 87635; 87637; 93005; 96374; 96375; 97110; 97161; 97166; 97530; 97535; 99285; A9270; A9577; C8929; G0378; Q9957; Q9967

== ENCOUNTER 2024-04-02 14:13 | Outpatient (NON) | payer OTHER, SELFPAY ==
[2024-04-02 17:38] LABS: Toxigenic C. Diff POSITIVE (NEGATIVE)
[2024-04-11 19:43] LABS: Calprotectin, Stool 1470 mcg/g
== END 2024-04-02 14:14 | disposition home or self-care (01) ==
LOC: ANHLAB 14:17
PROVIDERS: PCP Emergency Medicine; Visit Provider Nurse Practitioner Family
DX: K52.9 Noninfective gastroenteritis and colitis, unspecified (principal); K56.699 Other intestinal obstruction unspecified as to partial versus complete obstruction; K50.919 Crohn's disease, unspecified, with unspecified complications
CPT/HCPCS: 83993; 87045; 87177; 87209; 87427; 87449; 87493

== ENCOUNTER 2025-03-18 11:36 | Emergency (ER) | payer OTHER, SELFPAY ==
--- NOTE | ~2025-03-18 | CT_ITS ---
CT head without contrast Indication: Status post fall COMPARISON: 03/01/2024 Technique: Serial scans were obtained through the brain without the administration of contrast. Dose reduction technique was used on this scan by utilizing automated exposure control and iterative recon struction technique. The dose-length product (DLP) was 605.33 mGy-cm. Findings: There is a 5 mm hyperdensity in the inferior left frontal lobe (axial image 22). Stable foc al chronic right cerebellar infarct.. The ventricles and subarachnoid spaces are dilated, consistent with moderate atrophy. Low attenuation regions are seen within the periventricular white matter shereen aterally, likely representing changes from chronic microvascular ischemic disease. There is no eviden ce of edema, mass effect or midline shift. The visualized paranasal sinuses and mastoid air cells a re clear. Impression: 5 mm hyperdensity inferior left frontal lobe, suspicious for focal area of acute hemorrhage. This is not seen on prior exam. Atrophy and chronic white matter changes, as above. Reviewed, dictated and finalized at location . Impression: 5 mm hyperdensity inferior left frontal lobe, suspicious for focal area of acut e hemorrhage. This is not seen on prior exam. Atrophy and chronic white matter changes, as above.
--- NOTE | ~2025-03-18 | XR_ITS ---
Right elbow Technique: AP and lateral views were obtained. Clinical History: Pain Findings: No acute fracture or dislocation is seen. Osseous there is severe degenerative change throu ghout the elbow joint, bony productive change and joint space narrowing.. There is no displacement of the fat pads, and soft tissues are unremarkable. Impression: No acute abnormality. Severe elbow joint osteoarthritis. Reviewed, dictated and finalized at location . Impression: No acute abnormality. Severe elbow joint osteoarthritis.
--- NOTE | ~2025-03-18 | XR_ITS ---
Portable chest x-ray Comparison: 03/01/2024 Clinical History: Status post fall Findings: Lungs are clear, without focal consolidation or pleural effusion. No pneumothorax. Possibl e COPD. Cardiomediastinal silhouette is stable. Bones and soft tissues are unremarkable. Impression: No acute abnormality. Possible COPD. Reviewed, dictated and finalized at location . Impression: No acute abnormality. Possible COPD.
--- NOTE | ~2025-03-18 | XR_ITS ---
AP view of the pelvis and AP and lateral views of the right hip Clinical history: Pain Findings: No acute fracture or dislocation is seen. Osseous alignment is anatomic. Bilateral hip and SI joint spaces are preserved. Soft tissues are unremarkable. Impression: No significant abnormality is seen. Reviewed, dictated and finalized at [facility]. Impression: No significant abnormality is seen.
[2025-03-18 11:41] VITALS: PULSE 57; RESP 12; TEMP 36.3; O2SAT 100
--- NOTE | 2025-03-18 11:41 | ECG_ITS ---
Test Date: 2025-03-18 11:53:57 Measurements Intervals [place] Rate: 53 P: 73 MN: 152 QRS: -65 QRSD: 82 T: 94 QT: 419 QTc: 395 Interpretive Statements SINUS BRADYCARDIA POSSIBLE RIGHT VENTRICULAR CONDUCTION DELAY LEFT ANTERIOR FASCICULAR BLOCK NONSPECIFIC ST & T-WAVE ABNORMALITY- LAT/HIGH LAT LEADS BASELINE ARTIFACT- I, II, III, AVR, AVL, AVF, V1-V6 ABNORMAL ECG No previous ECG available for comparison Electronically Signed On 03-18-2025 12:00:44 CDT by Khris Winters D.O.
[2025-03-18 12:15] LABS: Basophils Percent Auto 0.7 % (0.2-1.2); Eosinophils Absolute Auto 0.1 K/mm3 (0-0.3); Eosinophils Percent Auto 2.1 % (0-4.4); Hematocrit 39.2 % (42.0-52.0); Hemoglobin 12.5 g/dL (14.0-18.0); Immature Granulocyte Absolute 0.01 K/mm3 (0.00-0.031); Immature Granulocyte Percent A 0.2 % (0-0.5); Lymphocytes Absolute Auto 0.79 K/mm3 (0.9-3.2); Lymphocytes Percent Auto 18.2 % (18.3-44.2); Mean Corpuscular HGB Conc 31.9 g/dl (32-36); Mean Corpuscular Hemoglobin 29.2 pg (26-34); Mean Corpuscular Volume 91.6 fl (80-100); Mean Platelet Volume 10.1 fl (7.4-10.4); Monocytes Absolute Auto 0.5 K/mm3 (0.1-0.6); Monocytes Percent Auto 11.7 % (2.6-8.5); Neutrophils Absolute Auto 2.9 K/mm3 (1.3-6.7); Neutrophils Percent Auto 67.1 % (45.5-73.1); Platelet Count Result 149 k/mm3 (150-375); Red Blood Count 4.28 M/mm3 (4.6-6.20); Red Cell Distribution Width 14.5 % (11.5-14.5); White Blood Count 4.4 K/mm3 (4.5-10.0)
[2025-03-18 12:24] LABS: Alanine Aminotransferase 16 U/L (6-50); Albumin Level 3.8 g/dL (3.5-5.1); Alkaline Phosphatase 96 U/L (38-126); Anion Gap 6 mmol/L (4-12); Aspartate Amino Transferase 28 U/L (17-59); Bilirubin,Total 0.6 mg/dL (0.2-1.3); Blood Urea Nitrogen 25 mg/dL (9-20); Calcium 9.7 mg/dL (8.4-10.2); Carbon Dioxide 26 mmol/L (22-30); Chloride 108 mmol/L (98-107); Estimated CRCL calculation 43 ml/min; Estimated Glomerular Filt Rate > 60; Glucose 88 mg/dL (65-110); Potassium 4.1 mmol/L (3.4-5.0); Sodium 140 mmol/L (137-145)
[2025-03-18 12:31] VITALS: BP 189/170; PULSE 61; RESP 11; O2SAT 99
[2025-03-18 12:32] VITALS: PULSE 60; RESP 14; O2SAT 98
--- OUTSIDE RECORDS SUMMARY | 2025-03-18 12:32 | XMS_ITS | CONTINUITY OF CARE DOCUMENT ---
Author Name brandy nava Address Unknown Organization [facility] Address [address] [place] [address] Phone [phone] Care Team Providers Care Analytic Programmer Name Role Phone ALEXANDRE ESQUEDA, VICTORINA Ramírez Unavailable [phone] INSURANCE PROVIDERS Payer name Policy type / Coverage type [employer] party ID [employer] Other [id number]
--- OUTSIDE RECORDS SUMMARY | 2025-03-18 12:32 | XMS_ITS ---
Author Name Auto Generated, Auto Generated Organization [facility] Address [address] [place] [address] Phone [phone] Care Team Providers Care Mobile Marketing Specialist Name Role Phone Baldomero Markham Unavailable [phone] Functional Status No Results Mental Status No Results Allergies and Intolerances Name Onset Date Reaction Severity No Known Allergies (Allergy) FriMar 05 17:03:00 EDT 2023 Encounters Program Name Primary Diagnosis Admission Date/Time Dis charge Date/Time [facility] Facility [facility] Term [facility] Unit FriMar 05 13:00:00 EDT 2023Mar 20 10:30:00 EDT 2023 Medications Medication Directions Start Date End Date FeroSuL 325 mg (65 mg iron) tablet 1 TAB TABLET Oral 1 Time Daily Give with food. Linda Mar 11 12:00:00 EDT 2023Mar 20 01:00:00 EDT 2023 TubersoL 5 tub. unit/0.1 mL intradermal injection solution Read Results VIAL (ML) Other 1 Time Weekly for 2 Weeks Indication: . Read results between 48-72 hours after 1st and 2nd (1 week apart). If positive do chest x-ray. FriMar 08 09:00:00 EDT 2023Mar 20 01:00:00 EDT 2023 TubersoL 5 tub. unit/0.1 mL intradermal injection solution 0.1 ml VIAL (ML) Intradermal 1 Time Weekly for 2 Weeks Indication: . 1st injection on admission, then one week after. Read between 48 and 72 hours FriMar 06 09:00:00 EDT 2023Mar 20 01:00:00 EDT 2023 Vitamin D3 25 mcg (1,000 unit) capsule 1 CAP CAPSULE Oral 1 Time Daily Indication: . supplement FriMar 05 17:00:00 EDT 2023Mar 20 01:00:00 EDT 2023 FeroSuL 325 mg (65 mg iron) tablet 1 TAB TABLET Oral 1 Time Daily Indication: Anemia FriMar 05 17:00:00 EDT 2023 Linda Mar 11 12:02:00 EDT 2023 ibuprofen 400 mg tablet 1 TAB TABLET Ora l PRN Every 6 Hours Indication: PAIN 1-3 FriMar 05 01:00:00 EDT 2023Mar 20 01:00:00 EDT 2023 atorvastatin 40 mg tablet 1 TAB TABLET O ral 1 Time Daily Indication: hyperlipidemia FriMar 05 17:00:00 EDT 2023Mar 20 01:00:00 EDT 2023 lisinopriL 40 mg tablet 1 TAB TABLET Ora l 2 Times Daily Indication: htn FriMar 05 17:00:00 EDT 2023Mar 20 01:00:00 EDT 2023 pantoprazole 40 mg tablet,delayed release 1 TAB TABLET, DELAYED RELEASE (ENTERIC COATED) Oral 1 Time Daily Indication: GI FriMar 05 17:00:00 EDT 2023Mar 20 01:00:00 EDT 2023 balsalazide 750 mg capsule 3 caps CAPSULE Oral 3 Times Daily Indication: inflammatory bowel family providing if pharm unable to obtain. FriMar 05 17:00:00 EDT 2023Mar 20 01:00:00 EDT 2023 Problems Active Concerns * Spinal stenosis, cervical region* Code: * Start Date: FriMar 05 00:00:00 EDT 2023 * End Date: * Text: * Spondylosis without myelopathy or radiculopathy, cervical region* Code: * Start Date: FriMar 05 00:00:00 EDT 2023 * End Date: * Text: * Occlusion and stenosis of bilateral carotid arteries* Code: * Start Date: FriMar 05 00:00:00 EDT 2023 * End Date: * Text: * Patent foramen ovale* Code: * Start Date: FriMar 05 00:00:00 EDT 2023 * End Date: * Text: * Other intervertebral disc displacement, thoracic region* Code: * Start Date: FriMar 05 00:00:00 EDT 2023 * End Date: * Text: * Solitary pulmonary nodule* Code: * Start Date: FriMar 05 00:00:00 EDT 2023 * End Date: * Text: * Noninfective gastroenteritis and colitis, unspecified* Code: * Start Date: FriMar 05 00:00:00 EDT 2023 * End Date: * Text: * Aneurysm of iliac artery* Code: * Start Date: FriMar 05 00:00:00 EDT 2023 * End Date: * Text: * Nicotine dependence, cigarettes, uncomplicated* Code: * Start Date: FriMar 05 00:00:00 EDT 2023 * End Date: * Text: * 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* Code: * Start Date: FriMar 05 00:00:00 EDT 2023 * End Date: * Text: * Hyperlipidemia, unspecified* Code: * Start Date: FriMar 05 00:00:00 EDT 2023 * End Date: * Text: * Foot drop, left foot* Code: * Start Date: FriMar 05 00:00:00 EDT 2023 * End Date: * Text: * Other cord compression* Code: * Start Date: FriMar 05 00:00:00 EDT 2023 * End Date: * Text: * Other symptoms and signs involving the musculoskeletal system* Code: * Start Date: FriMar 05 00:00:00 EDT 2023 * End Date: * Text: * Crohn's disease, unspecified, with unspecified complications* Code: * Start Date: FriMar 05 00:00:00 EDT 2023 * End Date: * Text: * Weakness* Code: * Start Date: FriMar 05 00:00:00 EDT 2023 * End Date: * Text: * Difficulty in walking, not elsewhere classified* Code: * Start Date: FriMar 05 00:00:00 EDT 2023 * End Date: * Text: * Essential (primary) hypertension* Code: * Start Date: FriMar 05 00:00:00 EDT 2023 * End Date: * Text: * Iron deficiency anemia, unspecified* Code: * Start Date: FriMar 05 00:00:00 EDT 2023 * End Date: * Text: * Unspecified chronic gastritis without bleeding* Code: * Start Date: FriMar 05 00:00:00 EDT 2023 * End Date: * Text: Vital Signs Vital Sign Measurement Date Systolic Blood Pressure 165.00 mm[Hg] Sat Mar 20 09:15:55 EDT 2023 Diastolic Blood Pressure 52.00 mm[Hg] Sat Mar 20 09:15:55 EDT 2023 Heart Rate 88.00 /min [facility] Mar 20 09:15 :55 EDT 2023 Body temperature 98.00 [degF] [facility] Mar 20 09:1 5:55 EDT 2023 Respiratory rate 18.00 /min [facility] Mar 20 09:1 5:55 EDT 2023 Pulse Oximetry 97.00 % [facility] Mar 20 09:15 :55 EDT 2023 Systolic Blood Pressure 162.00 mm[Hg] [facility] Mar 20 01:37:16 EDT 2023 Diastolic Blood Pressure 77.00 mm[Hg] [facility] Mar 20 01:37:16 EDT 2023 Heart Rate 66.00 /min [facility] Mar 20 01:37 :16 EDT 2023 Body temperature 98.20 [degF] [facility] Mar 20 01:3 7:16 EDT 2023 Respiratory rate 16.00 /min [facility] Mar 20 01:3 7:16 EDT 2023 Pulse Oximetry 97.00 % [facility] Mar 20 01:37 :16 EDT 2023 Body weight 148.80 [lb_av] FriMar 19 17:11 :50 EDT 2023 Systolic Blood Pressure 162.00 mm[Hg] FriMar 19 09:28:37 EDT 2023 Diastolic Blood Pressure 76.00 mm[Hg] FriMar 19 09:28:37 EDT 2023 Heart Rate 63.00 /min FriMar 19 09:28 :37 EDT 2023 Body temperature 98.20 [degF] FriMar 19 09:2 8:37 EDT 2023 Respiratory rate 18.00 /min FriMar 19 09:2 8:37 EDT 2023 Pulse Oximetry 85.00 % FriMar 19 09:28 :37 EDT 2023 Systolic Blood Pressure 181.00 mm[Hg] Linda Mar 18 23:50:26 EDT 2023 Diastolic Blood Pressure 71.00 mm[Hg] Linda Mar 18 23:50:26 EDT 2023 Heart Rate 65.00 /min FriMar 18 23:50 :26 EDT 2023 Body temperature 98.40 [degF] Linda Mar 18 23:5 0:26 EDT 2023 Respiratory rate 18.00 /min Linda Mar 18 23:5 0:26 EDT 2023 Pulse Oximetry 97.00 % [facility] Mar 18 23:50 :26 EDT 2023 Body weight 150.00 [lb_av] FriMar 18 14:05 :18 EDT 2023 Reason for Referral Past Medical History Resolved Concerns * Problem Crohn's disease of large intestine with other complication* Code: * Start Date: FriMar 05 00:00:00 EDT 2023 * End Date: FriMar 09 00:00:00 EDT 2023 * Problem Other gastritis without bleeding* Code: * Start Date: FriMar 05 00:00:00 EDT 2023 * End Date: FriMar 09 00:00:00 EDT 2023 * Problem Anemia, unspecified* Code: * Start Date: FriMar 05 00:00:00 EDT 2023 * End Date: FriMar 11 00:00:00 EDT 2023
--- OUTSIDE RECORDS SUMMARY | 2025-03-18 12:32 | XMS_ITS | Clinical Summary ---
Author Organization [facility] Address [address] [place] [address] Care Team Providers Care Chief Program Officer Name Role Phone Tip Landon MD Primary Care Provider Source Comments [facility],non-owned Affiliates and Associated Physician Practices is amultiple site organization consisting of ambulatory clinics and hospital sitesin [place], [place], [place] and [place]. This disclosure is being madepursuant to the Care Everywhere program and may not contain all information available regarding this patient. Last updated 18.[facility] [employer] Social History Tobacco Use Types Packs/Day Years Used Date Smoking Tobacco: Never Assessed Sex and Gender Information Value Date Recorded Sex Assigned at Not on file Legal Sex Male 6:46 AM SANDER HAND Gender Identity Not on file Sexual Orientation Not on file Plan of Treatment Health Maintenance Due Date Last Done Comments DTAP/TDAP/TD VACCINES (1 - Tdap) 1959 PNEUMOCOCCAL VACCINE 50+ (1 of 1 - PCV) 1990 ZOSTER VACCINE (1 of 2) 1990 Respiratory Syncytial Virus (RSV) Vaccine Pt: or over 60 yrs (1 - 1-dose 75+ series) 2015 COVID-19 VACCINE ( - 2023-2 5 season) 2024 DEPRESSION SCREENING 11/24/2024 INFLUENZA VACCINE (Season Ended) 2025 HEPATITIS B VACCINE Aged Out No longe r eligible based on patient's age to complete this topic HIB VACCINE Aged Out No longer eligi ble based on patient's age to complete this topic HPV VACCINE Aged Out No longer eligi ble based on patient's age to complete this topic MENINGOCOCCAL (Group B) VACC INE SHARED DECISION-MAKING Aged Out No longer eligibl e based on patient's age to complete this topic MENINGOCOCCAL GROUPS A/C/Y/W VACCINE Aged Out No longer eligible b ased on patient's age to complete this topic Insurance [employer] Care Teams Chief Program Officer Relationship Specialty Start Date End Date Tip Landon MD [facility] [place] [address] PCP - General 04/04/23
--- OUTSIDE RECORDS SUMMARY | 2025-03-18 12:32 | XMS_ITS | Clinical Summary ---
Author Organization [facility] Address [address] [place] [id number] Care Team Providers Care Medical Coding Auditor Name Role Phone Tip Landon MD Primary Care Provide r Allergies No known active allergies Medications atorvastatin (LIPITOR) 40 mg tablet Take 40 mg by mouth daily Active balsalazide (COLAZAL) 750 mg capsuleIndicati ons:Ulcerative Colitis Take 750 mg by mouth 3 (three) times a day Active cholecalciferol (VITAMIN D-3) 1,000 unit Take 1,000 Units by mouth daily Active lisinopril (PRINIVIL,ZESTR IL) 40 mg tablet Take 40 mg by mouth 2 (two) times a day Active ferrous sulfate 325 mg (65 mg of elemental iron) tablet Take 1 tablet by mouth daily 2 Active acetaminophen (TYLENOL) 325 mg tablet Take 2 tablets (650 mg total) by mouth every 6 (six) hours as needed for pain 30 tablet [address] (PROTONIX) 40 mg EC tabletIndicatio ns:Treatment of Non-Bleeding Gastric Disorder Take 1 tablet (40 mg total) by mouth daily 30 tablet 11 2 Active mesalamine (LIALDA) 1.2 gram EC tabletIndicatio ns:Ulcerative Colitis Take 1 tablet (1.2 g total) by mouth daily with breakfast 30 tablet 11 2 Active Additional Information Patient taking differently:1,200 mg oral3 times daily, Indications: Ulcerative Colitis, Reported on 08/09/2022 predniSONE (DELTASONE) 20 mg tablet Take 2 tablets (40 mg) by mouth daily Take by mouth as directed 100 tablet 2 2 Active Active Problems Problem Noted Date Diagnosed Date Crohn's disease of colon with complication 08/09 Assessment & Plan (09/18/2022 4:23 PM CDT): Uncontrolled. Doing better since being started on prednisone 40 mg daily. Denies fecal incontinence. The patient and his were counseled that he will be started on infliximab or a similar biologic based on the insurance coverage. Will request for PPD and hepatitis profile. Prescription will be made through the specialty pharmacy for infliximab. I will keep him on prednisone 40 mg daily for the time being. He will be tapered off prednisone once he is on maintenance dose of infliximab. The plan of care was discussed with patient and his . Advised to stop cigarette smoking. Assessment & Plan (08/09/2022 9:49 AM CDT): Uncontrolled. Patient is non-compliant. Has worsening diarrhea. Recent colonoscopy revealed active colitis in the transverse colon and ascending colon stricture. He was advised to continue Colazal. Prednisone 40 mg daily is prescribed. Will check CRP, fecal calprotectin, and screen for latent tuberculosis with PPD. He was counseled that he will need disease modifying therapy such as biologics. The patient and his verbalized understanding and they are willing to accept the proposed therapy with biologics. Stricture of colon determined by endoscopy 08/09 Assessment & Plan (08/09/2022 9:43 AM CDT): Ascending colon stricture Found on recent endoscopy. Has Crohn's colitis poorly controlled. Will obtain barium enema to better define the stricture. Patient was counseled about the importance of compliance with medical therapy in the management of Crohn's disease. He may need surgery if they are significant fibrostenotic disease suggested by barium enema. Lower gastrointestinal bleeding 07/22/2022 Clinical diagnosis of COVID-19 11/13/2021 Resolved Problems Problem Noted Date Diagnosed Date Resolved Date Acute GI bleeding 07/21/2022 07/22/2022 Closed fracture of left proximal humerus 06/06/2020 07/22/2022 Left arm pain 06/06/2020 07/22/2022 Bilateral carotid artery stenosis 10/31/2019 07/22/2022 Smoker 10/31/2019 07/22/2022 Stroke (cerebrum) (CMS/HCC) 10/30/2019 07/22/2022 Right leg weakness 10/29/2019 2 Immunizations Immunization Administration Dates Next Due Influenza, Trivalent, High D ose, Split, Preservative Free, Intramuscular 10/31/2019 Surgical History Surgery Date Site/Laterality Comments HAND SURGERY COLONOSCOPY 07/23/2022 Medical History Medical History Date Comments Crohn's disease (HCC) Hypertension Hyperlipidemia Stroke (HCC) Family History Medical History Relation Name Comments No Known Problems Brother No Known Problems Daughter No Known Problems Father No Known Problems Mother No Known Problems Other No Known Problems Sister No Known Problems Son Relation Name Status Comments Brother Daughter Father Mother Other Sister Son Social History Tobacco Use Types Packs/Day Years Used Date Smoking Tobacco: Every Day Cigarettes 0.4 72.5 Started: 09/27/1952 Smokeless Tobacco: Never Tobacco Cessation:Ready to Q uit: Not Asked; Counseling Given: Not Answered Alcohol Use Standard Drinks/Week Comments Yes 2 (1 standard drink = 0.6 oz pur e alcohol) Social Connection and Isolat ion Panel [NHANES] Answer Date Recorded In a typical week, how many times do you talk on the phone with family, friends, or neighbors? More than three times a week 07/22/2022 How often do you get togethe r with friends or relatives? More than three times a week 07/22/2022 How often do you attend formerly [facility] or mandaen services? More than 4 times per year 07/22/2022 Do you belong to any clubs o r organizations such as caodaism groups, unions, fraternal or athletic groups, or school groups? No 07/22/2022 How often do you attend meet ings of the clubs or organizations you belong to? Never 07/22/2022 Are you , , di vorced, , never , or living with a partner? 07/22/2022 AUDIT-C Answer Date Recorded Frequency of Alcohol Consumption Not on file 09/18/2022 Q2: How many drinks containi ng alcohol do you have on a typical day when you are drinking? Patient does not drink 10/26/202 2 Frequency of Binge Drinking Not on file 08/25 Overall Financial Resource Strain (CARDIA) Answe r Date Recorded How hard is it for you to pa y for the very basics like food, housing, medical care, and heating? Not very hard 07/22/2022 PHQ-2 Answer Date Recorded PHQ-2 Total Score (If total score is 3 or more points, staff should administer the PHQ-9) 0 09/18/2022 Hunger Vital Sign Answer Date Recorded Within the past 12 months, y ou worried that your food would run out before you got the money to buy more. Never true 07/22/20 22 Within the past 12 months, t he food you bought just didn't last and you didn't have money to get more. Never true 07/22/2022 PRAPARE - Transportation Answer Date Re corded In the past 12 months, has l ack of transportation kept you from medical appointments or from getting medications? No 06/25 In the past 12 months, has l ack of transportation kept you from meetings, work, or from getting things needed for daily living? No 07/22/2022 Housing Stability Vital Sign Answer Mariusz e Recorded In the last 12 months, was t here a time when you were not able to pay the mortgage or rent on time? No 07/22/2022 In the last 12 months, how many places have you lived? 1 07/22/2022 In the last 12 months, was t here a time when you did not have a steady place to sleep or slept in a group home (including now)? No 07/22/2022 Personal Safety Answer Date Recorded Getting School Help Needed Not on file 01/14 Sex and Gender Information Value Date Recorded Sex Assigned at Not on file Legal Sex Male 11:14 AM OB/GYN NURSE Gender Identity Not on file Sexual Orientation Not on file Obstetrics History Last Filed Vital Signs Vital Sign Reading Time Taken Comments Blood Pressure 112/58 09/18/2022 11:59 AM CDT Pulse 98 09/18/2022 11:59 AM CDT Temperature 36.6 C (97.8 F) 07/24/2022 8:15 AM CDT Respiratory Rate 18 07/24/2022 8:15 AM CDT Oxygen Saturation 94% 09/18/2022 11:59 AM CDT Inhaled Oxygen Concentration - - Weight 62.6 kg (138 lb) 09/18/2022 11:59 AM CDT Height 176.5 cm (5' 9.5 ) 09/18/2022 11:59 AM CD T Body Mass Index 20.09 09/18/2022 11:59 AM CDT Plan of Treatment Health Maintenance Due Date Last Done Comments DTaP/Tdap/Td Vaccine (1 - Tdap) 1951 Hepatitis B Screening 1958 Pneumococcal vaccine 65+ (1 of 2 - PCV) 1959 Zoster Vaccine (1 of 2) 1990 Well Visit 65+ 2005 Fall Risk Assessment 07/24/2023 07/24/2022 Depression Screening 09/18/2023 09/18/2022, 08/09/2022, 10/29/2019 Influenza Vaccine (Season Ended) 2025 10/01/20, 10/31/2019 Insurance School Admissions HEALTHCARE School Admissions HEALTHCARE [facility] Advance Directives For more information, please contact: [phone] Documents on File Type Date Recorded Patient Pain Coordinator Expl anation ADVANCE DIRECTIVE 11/01/2019 9:31 AM POWER OF INCIDENT COORDINATOR-MEDICAL ADVANCE DIRECTIVE 11/01/2019 9:31 AM POWER OF INCIDENT COORDINATOR-MEDICAL * Full Code (Latest Code Status on File) Date Activated Date Inactivated Comments 07/22/2022 7:26 PM 07/24/2022 5:37 PM * Full Code Date Activated Date Inactivated Comments 07/21/2022 10:31 AM 07/22/2022 7:26 PM * Full Code Date Activated Date Inactivated Comments 10/29/2019 12:20 PM 10/31/2019 6:11 PM Care Teams Medical Coding Auditor Relationship Specialty Start Date End Date Tip Landon MD [address] [place] [address] PCP - General Emergency Medicine 03/17/24
--- OUTSIDE RECORDS SUMMARY | 2025-03-18 12:32 | XMS_ITS | Referral Summary ---
Author Organization [facility] Address [address] [place] [id number] Care Team Providers Care Starch Dumper Name Role Phone Tip Landon MD Primary [...] 10/31/2019 07/22/2022 Smoker 10/31/2019 07/22/2022 Stroke (cerebrum) ([facility]) 10/30/2019 07/22/2022 Right leg weakness 10/29/2019 2 Immunizations Immunization Administration Dates Next Due Influenza, Trivalent, High D ose, Split, Preservative Free, Intramuscular 10/31/2019 Social History Tobacco Use Types Packs/Day Years [...] week 07/22/2022 How often do you attend chur ch or hoahaoism services? More than 4 times per year 07/22/2022 Do you belong to any clubs o r organizations such as muslim groups, unions, fraternal or athletic groups, or [...] you are drinking? Patient does not drink Frequency of Binge Drinking Not on file [...] place to sleep or slept in a retirement (including now)? No 07/22/2022 Personal Safety Answer Date Recorded Getting School Help Needed Not on file 01/14 Sex and Gender Information Value Date Recorded Sex Assigned at Not on file Legal Sex Male 11:14 AM PHILOSOPHY PROFESSOR Gender Identity Not on file Sexual Orientation Not on file Last Filed Vital Signs Vital Sign Reading [...] 09/18/2022 11:59 AM CDT Plan of Treatment Not on file Insurance HEALTHCARE HEALTHCARE HEALTHCARE Advance Directives For more information, please contact: [phone] Documents on File Type Date Recorded Patient Revising Clerk Expl anation ADVANCE DIRECTIVE 11/01/2019 9:31 AM POWER OF AUTOMOBILE PARKER-MEDICAL ADVANCE DIRECTIVE 11/01/2019 9:31 AM POWER OF AUTOMOBILE PARKER-MEDICAL * Full Code (Latest Code Status on File) Date Activated Date Inactivated Comments 07/22/2022 7:26 PM 07/24/2022 5:37 PM * Full Code Date Activated Date Inactivated Comments 07/21/2022 10:31 AM 07/22/2022 7:26 PM * Full Code Date Activated Date Inactivated Comments 10/29/2019 12:20 PM 10/31/2019 6:11 PM Care Teams Starch Dumper Relationship Specialty Start Date End Date Tip Landon MD [address] [place] [address] PCP - General Emergency Medicine 03/17/24
[2025-03-18 12:47] VITALS: BP 182/90; PULSE 53; RESP 13; O2SAT 98
--- NOTE | 2025-03-18 12:59 | ED_ITS ---
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 Patient lives alone and states that he fell multiple times this past few days and then this morning while trying uses walker. He fell onto his right side instructed his elbow and head but did not lose consciousness. Does not take any blood thinners according to himself. Denies any chest pain shortness a breath. No abdominal pain or back pain. He has a small skin tear to his dorsal lateral aspect of the right elbow but no signs of trauma to his head or neck. He has chronic wound to his right lower extremity is well bandaged. Denies any pain at this time and states that he has no symptoms but states that given his frequent falls he does not feel comfortable living alone. Denies any urinary complaints. Related Data Home Medications ?Medication ?Instructions ?Recorded ?Confirmed ?Last Taken ?Type cholecalciferol (vitamin D3) 25 25 mcg PO DAILY 02/10/23 03/29/24 Unknown History mcg (1,000 unit) capsule atorvastatin 40 mg tablet 40 mg PO DAILY 03/01/24 03/29/24 Unknown History ibuprofen 200 mg tablet 400 mg PO Q6H PRN Pain (Scale 03/01/24 03/29/24 Unknown History Score 1-3) Allergies Allergy/AdvReac Type Severity Reaction Status Date / Time No Known Allergies Allergy Verified 03/29/24 13:07 Review of Systems 2 Review of Systems: As reviewed above in HPI [facility] Past Medical History Medical History Carotid artery stenosis (03/01/24) 72% stenosis of proximal right ICA. 46% stenosis of proximal left ICA. Cerebrovascular accident (05/2013) Left-sided hemiparesis. Colon stricture Chronic diarrhea H. pylori infection Erosive gastritis Iron deficiency anemia Hyperlipidemia Iliac artery aneurysm Benign essential hypertension Crohn's disease Surgical History Surgical History History of corneal transplant History of cataract extraction Family History Family History Sibling Family history of malignant neoplasm Mother Patient's mother is Social History Social History Social History: Surrogate medical decision maker: Sylvia Rogel, spouse. Code status: Full code. Smoking packs per day: 0.5 Smoking cigarettes per day: 10.0 Years smoked: 40 Smoking pack-years: 20.00 Smoking status: Former smoker Tobacco type: cigarettes Smoking end date: 09/20/22 Alcohol intake: never Alcohol use details: Seldom Substance use: never Substance use type: does not use Lack of Transportation: No Lack of Food: Never True Current Housing: I Have Housing Concerned About Future Housing: No Difficulty Paying Gas/Electric Bills: No Difficulty Paying for Meds: No Currently Unemployed: No Education: Associate Degree Difficulty w/ Childcare or Family Care: No Living arrangements: with family Spiritual care concerns: No Exam 2 Narrative: GENERAL: [Well-appearing, well-nourished, and in no acute distress.] HEAD: [Normocephalic, atraumatic.] EYES: [PERRLA and EOMI.] ENT: Nares clear, no rhinorrhea or epistaxis. Mucous membranes moist. NECK: Supple. CHEST: [Clear to auscultation. No respiratory distress.] HEART: [Regular rate and rhythm]. No murmur heard. [Normal peripheral pulses.] ABDOMEN: [Soft, nondistended], [nontender], [No rigidity or guarding] EXTREMITIES: Normal range of motion. [No edema.] SKIN: Skin tear to the dorsal lateral right elbow, no bleeding or signs of infection. NEURO: No new focal deficits, left-sided hemiparesis from prior stroke, right upper and right lower extremity good range of motion and sensation/strength PSYCH: [Normal mood and affect.] Course Vital Signs Vital signs: Vital Signs Temperature 36.3 C L 03/18/25 11:41 Pulse Rate 57 L 03/18/25 11:41 Respiratory Rate 12 03/18/25 11:41 Pulse Oximetry 100 03/18/25 11:41 Oxygen Delivery Room Air 03/18/25 11:41 Temperature 36.3 C L 03/18/25 11:41 Pulse Rate 53 L 03/18/25 12:47 Respiratory Rate 13 03/18/25 12:47 Blood Pressure 182/90 H 03/18/25 12:47 Pulse Oximetry 98 03/18/25 12:47 Oxygen Delivery Room Air 03/18/25 11:41 MDM - Fall MDM Narrative Medical decision making narrative: 84-year-old male with a past medical history including chronic left-sided deficits from a stroke, hypertension, hyperlipidemia, cervical and spinal stenosis. He is DNR/DNI. Patient states that he was trying to ambulate with his walker and fell to his right side today. Unable to get up and his home healthcare nurse found him and called the ambulance. Patient states that he is falling frequently over last few days and is scared to live alone. He wishes to be placed into a facility. He endorses no pain or symptoms at this time and states that he has a small bruise/tear to his right upper extremity which is cleanly bandaged at this time and not actively bleeding. Slightly hypertensive, slightly bradycardic, no fever, hypoxia or tachypnea. He has no signs of head injury trauma he states he did not lose consciousness. Does not take any blood thinners. He is otherwise well-appearing but given his age and risk factors concern for injury is higher. CT of the head was obtained as well as x-rays of the hip and right elbow secondary to the fall. Laboratory studies ordered. Patient is not a pain has no symptoms at this time. Does not need medications at this time. Workup shows a intracranial hemorrhage likely intraparenchymal with 5 mm in the left inferior frontal lobe. Patient was re-evaluated and states he feels weak but no neurological complaints at this time. His vital signs are showing hypertension 189/90, pulse 53. No signs of herniation or midline shift on the CT scan. He was given Keppra 1500 mg IV and initiated on nicardipine drip with goal systolic blood pressure under 160. Spoke to the [facility] transfer system for emergent transfer as a trauma activation given his intracranial hemorrhage. Patient is not any anticoagulation medications that need to be reversed. I discussed the case with Dr. Middleton the ED physician at [facility] who accepted the patient as a trauma transfer at this time. Helicopter transfer arranged given delays and ground transportation that can further deteriorate patient's clinical status. Patient was informed of the need for emergent transfer and he was agreeable and stable for transfer at this time. Sign-out given to the flight crew and patient left the department without any further issue. Medical Records Attestation: I reviewed the patient's medical records. Lab Data Attestation: I reviewed the patient's lab results. 03/18/25 12:05 03/18/25 12:05 Labs: Lab Results 03/18/25 Range/Units 12:05 WBC 4.4 L (4.5-10.0) K/mm3 RBC 4.28 L (4.6-6.20) M/mm3 Hgb 12.5 L (14.0-18.0) g/dL Hct 39.2 L (42.0-52.0) % MCV 91.6 (80-100) fl MCH 29.2 (26-34) pg MCHC 31.9 L (32-36) g/dl RDW 14.5 (11.5-14.5) % Plt Count 149 L (150-375) k/mm3 MPV 10.1 (7.4-10.4) fl Immature Gran % (Auto) 0.2 (0-0.5) % Neut % (Auto) 67.1 (45.5-73.1) % Lymph % (Auto) 18.2 L (18.3-44.2) % Edwards % (Auto) 11.7 H (2.6-8.5) % Eos % (Auto) 2.1 (0-4.4) % Baso % (Auto) 0.7 (0.2-1.2) % Lymph # (Auto) 0.79 L (0.9-3.2) K/mm3 Edwards # (Auto) 0.5 (0.1-0.6) K/mm3 Eos # (Auto) 0.1 (0-0.3) K/mm3 Baso # (Auto) 0.0 (0.0-0.1) K/mm3 Abs Immat Gran (auto) 0.01 (0.00-0.031) K/mm3 Absolute Neuts (auto) 2.9 (1.3-6.7) K/mm3 Absolute Nucleated RBC 0.000 (0.0-0.012) K/mm3 Nucleated RBC % 0.0 (0.0-0.2) % Sodium 140 (137-145) mmol/L Potassium 4.1 (3.4-5.0) mmol/L Chloride 108 H (98-107) mmol/L Carbon Dioxide 26 (22-30) mmol/L Anion Gap 6 (4-12) mmol/L BUN 25 H (9-20) mg/dL Creatinine 1.11 (0.7-1.3) mg/dL Estim Creat Clear Calc 43 ml/min Estimated GFR > 60 (59 - ) Glucose 88 (65-110) mg/dL Calcium 9.7 (8.4-10.2) mg/dL Total Bilirubin 0.6 (0.2-1.3) mg/dL AST 28 (17-59) U/L ALT 16 (6-50) U/L Alkaline Phosphatase 96 (38-126) U/L Total Protein 7.0 (6.3-8.2) g/dL Albumin 3.8 (3.5-5.1) g/dL Imaging Data Attestation: I personally reviewed and interpreted this imaging study as follows: My impression: Impressions Head CT 03/18/25 13:21 Impression: 5 mm hyperdensity inferior left frontal lobe, suspicious for focal area of acute hemorrhage. This is not seen on prior exam. Atrophy and chronic white matter changes, as above. Elbow X-Ray 03/18/25 13:33 Impression: No acute abnormality. Severe elbow joint osteoarthritis. Hip/Pelvis X-Ray 03/18/25 13:33 Impression: No significant abnormality is seen. Chest X-Ray 03/18/25 13:50 Impression: No acute abnormality. Possible COPD. Critical Care Time Critical Care Time Critical Care Time: Yes Total Critical Care Time: 60 Discharge Plan Discharge Clinical Impression: Intracranial hemorrhage following injury, History of stroke, Fall Patient Disposition: Acute Care Hospital Condition: Serious Instructions: Antibiotic Form Patient Language: Georgian Prescriptions: No Action cholecalciferol (vitamin D3) 25 mcg (1,000 unit) capsule 25 mcg PO DAILY atorvastatin 40 mg tablet 40 mg PO DAILY Rx Instructions: TAKE 1 TABLET BY MOUTH EVERY DAY ibuprofen 200 mg Tablet 400 mg PO Q6H PRN (Reason: Pain (Scale Score 1-3)) pantoprazole 40 mg tablet,delayed release (DR/EC) See Rx Instructions .ROUTE .COMPLEX Qty: 90 2RF Dose Instruction: TAKE 1 TABLET BY MOUTH EVERY DAY Rx Instructions: TAKE 1 TABLET BY MOUTH EVERY DAY ferrous sulfate 325 mg (65 mg iron) tablet See Rx Instructions .ROUTE .COMPLEX Qty: 90 2RF Dose Instruction: 325 MG ORALLY DAILY Rx Instructions: 325 MG ORALLY DAILY lisinopril 40 mg tablet See Rx Instructions .ROUTE .COMPLEX Qty: 180 2RF Dose Instruction: TAKE 1 TABLET BY MOUTH TWICE A DAY Rx Instructions: TAKE 1 TABLET BY MOUTH TWICE A DAY balsalazide 750 mg capsule See Rx Instructions .ROUTE .COMPLEX Qty: 810 2RF Dose Instruction: TAKE 3 CAPSULES BY MOUTH 3 TIMES A DAY Rx Instructions: TAKE 3 CAPSULES BY MOUTH 3 TIMES A DAY Follow-up/Referrals: Tip Landon MD [Primary Care Provider] - Time of Disposition: 14:11
[2025-03-18] MEDS: levETIRAcetam 1500MG/NACL100ML 1,500 MG/100 ML BAG 400 MG IVPB (13:46)
== END 2025-03-18 14:09 | disposition short-term general hospital (02) ==
PROVIDERS: Registered Nurse; Emergency Provider Student in an Organized Health Care Education/Training Program; PCP Emergency Medicine
DX: I62.9 Nontraumatic intracranial hemorrhage, unspecified (principal); W18.30XA Fall on same level, unspecified, initial encounter; I69.354 Hemiplegia and hemiparesis following cerebral infarction affecting left non-dominant side; I10 Essential (primary) hypertension; E78.5 Hyperlipidemia, unspecified; K50.90 Crohn's disease, unspecified, without complications; Z87.891 Personal history of nicotine dependence
CPT/HCPCS: 36415; 70450; 71045; 73070; 73502; 80053; 85025; 93005; 96374; 99285; J1953